=== PATIENT | female | born 1955 | race Caucasian/White ===

== ENCOUNTER 2017-07-08 19:06 | Inpatient (IN) | payer BC, OTHER, SELFPAY ==
[2017-07-08] MEDS ORDERED: hydrALAZINE 20 MG/ML VIAL SLOW IVP PRN (19:52)
[2017-07-08] MEDS ORDERED: Ondansetron HCl/PF 4 MG/2 ML Vial IVP PRN (19:52)
[2017-07-08] MEDS ORDERED: Ondansetron ODT 4 MG TAB PO PRN (19:52)
[2017-07-08] MEDS ORDERED: Dextrose 50% Abboject 50 ML SYRINGE SLOW IVP PRN (19:52)
[2017-07-08] MEDS ORDERED: Dextrose 5% in Water 1,000 ML IV PRN (19:52)
[2017-07-08] MEDS: Sodium Chloride 0.9% 1,000 ML IV SCH (20:20)
[2017-07-08] MEDS: Morphine 2 MG/ML SYRINGE SLOW IVP PRN (20:20)
[2017-07-08] MEDS: Acetaminophen 500 MG TAB PO SCH (23:40)
[2017-07-09 00:43] VITALS: BMI 29.6
--- NOTE | 2017-07-09 00:57 | CON ---
DATE OF CONSULTATION: 07/08/2017 CHIEF COMPLAINT: Right hip pain. HISTORY OF PRESENT ILLNESS: Ms. Brito is a 61-year-old female who was at work today when she fell fr om a stool. She landed on a concrete floor. She had immediate pain in the hip. She was unable to a mbulate. She was taken to the emergency department in [place] where her right femoral neck fracture was identified. She has been transferred from there for further treatment. Orthopedics was consulte d. The patient has been admitted to the hospital under the general surgery Trauma service. She is c urrently resting comfortably. No other complaints or problems. PAST MEDICAL HISTORY: Diabetes and hyperthyroidism. PAST SURGICAL HISTORY: Includes multiple right wrist surgeries from initial open reduction internal fixation and then subsequent infection. She has also had a hysterectomy, tonsillectomy, , t scabbler finger release, left rotator cuff surgery and previous right knee arthroscopic surgery. SOCIAL HISTORY: The patient denies tobacco, alcohol, or drug use. ALLERGIES: To SULFA. REVIEW OF SYSTEMS: Positive for right hip pain, otherwise negative ten point review of systems. PHYSICAL EXAMINATION: VITAL SIGNS: Stable. She is afebrile. GENERAL: She is alert, lying supine in no apparent distress. HEENT: Normocephalic, atraumatic. RESPIRATORY: Breathing comfortably. ABDOMEN: Soft, nontender, nondistended. MUSCULOSKELETAL: The right hip has pain with motion. There is no ecchymosis or laceration. No skin irritation or rash is present. She is neurovascularly intact in the foot and ankle. She has a palp able dorsalis pedis pulse. IMAGES: X-rays of the pelvis and right hip are reviewed. These demonstrate a displaced and rotated subcapital femoral neck fracture. IMPRESSION: The patient has an acute subcapital femoral neck fracture. PLAN: At this point, I had a long discussion with the patient. She is aware of her injury and quest ions have been answered. We are planning to proceed with total hip arthroplasty tomorrow. I have ch osen total hip arthroplasty given that she is young and does have a displaced fracture. I have revie wed alternatives, which would include percutaneous screw fixation; however, I think this would fail g ivcira her displacement as well as hemiarthroplasty, which would likely lead to acetabular osteoarthrit is in the next 5-10 years, which would be acceptable given the patient's young age. She is aware of the risk with total hip arthroplasty which include instability, infection, wound complication and oth ers. She will be n.p.o. at midnight. She will have appropriate antibiotic prophylaxis with vancomyc in given her history of MRSA. I will also order Bactroban for her nasal treatment. She will have ap propriate DVT prophylaxis.
[2017-07-09] MEDS: Levothyroxine Sodium 125 MCG TAB PO SCH (05:20)
[2017-07-09] MEDS: Acetaminophen 500 MG TAB PO SCH ×4 (05:20→23:07)
[2017-07-09] MEDS: Morphine 2 MG/ML SYRINGE SLOW IVP PRN ×3 (05:34→23:06)
[2017-07-09] MEDS: Sodium Chloride 0.9% 1,000 ML IV SCH (05:37)
--- NOTE | 2017-07-09 06:08 | HP ---
HPI: Ms Brito is a 61 yo female who presented to to [facility] as a transfer from [facility]. Pt states she fell while attempting to stand on a stoop approximately 2-3 ft in height. She had immediate onset RLE pain associated with inability to ambulate. She was evaluated at an outside facility and found to have a R fem neck fx. Orthopedic surgery was notified and pt was transferred to our facility for further care. Upon my evaluation pt has a cc of RLE pain. She denies head trauma or LOC. ALLERGIES: SULFA MEDICATIONS, IBUPROFEN, THIO . and SIMBRINZA EYEDROPS. HOME MEDICATIONS: Patient takes multivitamins, Lumigan eyedrops, timolol eyedrops, cetirizine 10 mg p.o. nightly, Aleve 2 tabs p.o. b.i.d., Prozac 20 mg p.o. daily, Lyrica 50 mg p.o. daily, trazodone 150 mg p.o. at bedtime, Ambien 10 mg p.o. at bedtime p.r.n., Synthroid 250 mcg p.o. daily, gabapentin 300 mg p.o. t.i.d., VESIcare 10 mg p.o. daily, potassium 10 mEq p.o. daily. PAST MEDICAL HISTORY: Significant for right eye glaucoma, type 1 diabetes with an insulin pump, hypothyroidism, depression and hypokalemia. PAST SURGICAL HISTORY: Patient has a history of , hysterectomy, left shoulder surgery x2, right wrist surgery x6, right knee surgery, bilateral trigger finger surgery, tonsillectomy. 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 Denies alcohol, tobacco or illicit drug use. FAMILY HISTORY: Significant for mother with CHF and arrhythmia. Father with Alzheimer's and a brother with pulmonary hemochromatosis requiring lung transplant. REVIEW OF SYSTEMS: Negative except as indicated in the HPI. PHYSICAL EXAMINATION: VITAL SIGNS: Reviewed. GENERAL: Well-developed, well-nourished female in no acute distress, resting in bed. HEAD: Normocephalic, atraumatic. EYES: Pupils are PERRL. Extraocular movements are intact. NECK: Supple. Trachea is midline. CHEST: Atraumatic. LUNGS: Clear to auscultation bilaterally. CARDIOVASCULAR: Regular rate and rhythm. ABDOMEN: Soft, nontender, nondistended. Bowel sounds are positive. MUSCULOSKELETAL: Bilateral upper extremities within normal limits. Right lower extremity range of motion limited secondary to pain. She is neurovascularly intact distal to the site of her injury. Left lower extremity, within normal limits. NEUROLOGIC: GCS of 15. No focal deficit noted. LABORATORY DATA: WBC 9.5, hemoglobin 13.5, hematocrit 40.1, platelet count 178. Sodium 136, potassium 4.2, chloride 100, carbon dioxide 29, BUN 21, creatinine 1.13, glucose 176, troponin 0.02. RADIOLOGIC FINDINGS: Chest x-ray read as no acute cardiopulmonary process, right pelvic x-ray was significant for right femoral neck fracture. Right hip x -ray was significant for right femoral neck fracture. ASSESSMENT: 1. Status post mechanical fall. 2. Right hip fracture. 3. Acute traumatic pain. 4. Type 1 diabetes with insulin pump. 5. Hypothyroidism. 6. History of depression. 7. History of hypokalemia. 8. History of right eye glaucoma. PLAN: Admit to Trauma Services. Per Orthopedic Surgery, they plan for likely operative intervention in a.m. Patient should be n.p.o. after midnight. Perioperative pain management. Resume home meds/reconcile home medication list. Postoperative PT, OT. Gastritis and DVT prophylaxis as appropriate. Patient may use insulin pump. Plans for admission were discussed with the patient and family at bedside. All questions answered at time of this dictation. EULALIA
[2017-07-09 07:37] LABS: #Eosinphils 0.5 thou/uL (0.0-0.7); #Monocytes 0.5 thou/uL (0.11-0.59); #Neutrophils 8.3 thou/uL (1.40-6.50); %Basophils 0.2 % (0.0-1.0); %Eosinophils 5.2 % (0.0-10.0); %Lymphocytes 9.9 % (21.0-51.0); %Monocytes 4.6 % (0.0-10.0); %Neutrophils 80.1 % (42.0-75.0); Hemoglobin 12.9 g/dL (12.0-16.0); Mean Corpuscular HGB CONC 32.6 g/dL (32.0-36.0); Mean Corpuscular Hemoglobin 29.4 pg (27.0-31.0); Mean Corpuscular Volume 90.1 fl (81.0-99.0); Mean Platelet Volume 7.2 fL (7.4-10.4); Platelet Count 208 thou/uL (130-400); RBC Distribution Width 11.6 % (11.5-14.5); Red Blood Cell (RBC) Count 4.37 mill/uL (4.20-5.40); White Blood Cell (WBC) Count 10.4 thou/uL (4.8-10.8)
[2017-07-09 07:58] LABS: Anion Gap 11 mmol/L (10-20); BUN (Urea Nitrogen) 17 mg/dL (9.8-20.1); Calc. Creatinine Clearance 78 mL/min (70-130); Calcium 8.9 mg/dL (7.8-10.44); Carbon Dioxide 26 mmol/L (22-29); Chloride 104 mmol/L (98-107); Estimated GFR-MDRD 57; Glucose 86 mg/dL (70-105); Magnesium 1.9 mg/dL (1.6-2.6); Phosphorus 3.3 mg/dL (2.3-4.7); Potassium 4.2 mmol/L (3.5-5.1); Sodium 137 mmol/L (136-145)
[2017-07-09] MEDS: Ketorolac Tromethamine 30 MG/ML VIAL IVP SCH ×3 (08:54→19:59)
[2017-07-09] MEDS: Mupirocin 2% Ointment 22 GM Tube TOP SCH ×2 (08:55→20:06)
[2017-07-09] MEDS: Timolol 0.5% Ophth Soln 5 ml Bottle R EYE SCH (10:27)
[2017-07-09] MEDS: Gabapentin 300 MG CAP PO SCH ×3 (10:32→20:00)
[2017-07-09] MEDS: FLUoxetine HCl 20 MG CAP PO SCH (10:32)
[2017-07-09] MEDS: Potassium Chloride 10 MEQ TAB PO SCH (10:32)
[2017-07-09] MEDS: Pregabalin 50 MG CAP PO SCH (10:32)
[2017-07-09] MEDS: Vit A,C & E/Lutein/Minerals Tablet PO SCH ×2 (10:33→20:20)
[2017-07-09] MEDS ORDERED: Vancomycin HCl 1 GM in Premix Bag 1 BAG IVPB ONE (12:00)
[2017-07-09] MEDS ORDERED: Fentanyl 100 MCG/2 ML VIAL ONE ×3 (12:03→15:22)
[2017-07-09] MEDS ORDERED: Ondansetron HCl/PF 4 MG/2 ML Vial IVP PRN (14:03)
[2017-07-09] MEDS ORDERED: Promethazine HCl 25 MG/ML VIAL IM PRN (14:03)
[2017-07-09] MEDS ORDERED: Promethazine HCl 25 MG/ML VIAL SLOW IVP PRN (14:03)
--- NOTE | 2017-07-09 15:29 | RAD ---
HIP ONE VIEW: History: Arthroplasty. Comparison: Pelvic radiograph, same day. FINDINGS: Satisfactory appearance of the right hip arthroplasty. IMPRESSION: Satisfactory appearance of the right hip arthroplasty. POS: [facility]
--- NOTE | 2017-07-09 15:30 | RAD ---
AP PELVIS: History: Arthroplasty. Comparison: None. FINDINGS: Satisfactory appearance of a right hip arthroplasty. There is post-operative gas and edema. No hardwa re complication. IMPRESSION: Satisfactory appearance of right hip arthroplasty. POS: [facility]
--- NOTE | 2017-07-09 15:32 | OP ---
DATE OF PROCEDURE: 07/09/2017 OPERATION: Right total hip arthroplasty. PREOPERATIVE DIAGNOSIS: Right femoral neck fracture. POSTOPERATIVE DIAGNOSIS: Right femoral neck fracture. COMPLICATIONS: None. ESTIMATED BLOOD LOSS: 150 mL. SURGEON: Ernie Hansen M.D. TEXTILE MACHINERY SALES REPRESENTATIVE: Nawaf Maya PA-C. IMPLANTS: 1. DePuy [place] stem size 5. 2. 50 mm Roby acetabulum cup. 3. A +5 x 32 mm femoral head. INDICATIONS: Ms. Brito is a 61-year-old female who has fallen. She sustained a fracture of the femo ral neck of the right hip. This was displaced and high at the subcapital region. She was indicated for total hip arthroplasty to restore ambulation and prevent complications of prolonged bed rest. I did not feel she could do well with percutaneous screws given her displacement and she would likely h ave complications with a hemiarthroplasty given her young age. Risks have been reviewed. Her primar y risk is with infection given her history of multiple MRSA infections. DESCRIPTION OF PROCEDURE: Ms. Barnhart was identified in the preoperative holding area. Her correct extremity was marked. She was carried to the operating room. She was positioned supine. General an esthesia was induced. A multidisciplinary timeout was performed. She was converted to the decubitus position. We prepped and draped the right lower extremity and began the procedure. We performed a posterior ap proach to the hip using the Rossana Langenbeck approach. We dissected down through the subcutaneous t issues to the fascia which was incised. We then exposed the underlying short external rotators of th e hip. We then performed a capsulotomy. At this point, the fractured femoral neck was identified. We performed a new osteotomy of the femoral neck. We then removed the femoral head. We then cleared the acetabulum and placed retractors appropriately. At this point, we reamed the acetabulum up from a 44 mm to a 49 mm reamer. We then impacted a 50 mm acetabulum cup. This gave a good fit. We placed our liner appropriately after clearing soft tissues . A screw was placed in the acetabular cup prior to liner placement. At this point, we moved to the femur. We prepared the proximal femur with an appropriate reamer foll owed by christ up to a size 5. We trialed off our size 5 broach and a +5 [address] was appropriate for [address] ability throughout full range of motion. At this point, we thoroughly irrigated once again. We then placed our final femoral stem and head and once again reduced the hip. We closed the capsule and pi riformis with a #5 Ethibond suture through drill holes in the trochanter. We then closed the deep fa scia with #1 Vicryl suture followed by 2-0 Vicryl suture and merlene for the skin. A sterile dressin g was applied. At this point, the patient was taken to the recovery room in good condition without c omplication.
[2017-07-09] MEDS ORDERED: Ketorolac Tromethamine 15 MG/ML VIAL IVP SCH (20:00)
[2017-07-09] MEDS: Vancomycin HCl 1 GM in Premix Bag 1 BAG IVPB SCH (20:20)
[2017-07-09] MEDS: Latanoprost 0.005% Ophth Soln 2.5 ml Bottle EA EYE SCH (20:49)
[2017-07-09] MEDS ORDERED: Non-Formulary Item 1 EACH (Bimatoprost [Lumigan 0.01% Ophth Soln] 1 DROP) EA EYE SCH (21:00)
--- NOTE | 2017-07-09 23:01 | PRG ---
DATE OF SERVICE: 07/09/2017 SUBJECTIVE: Ms. Colleen Brito is 61-year-old female postop day 0 status post hip fracture repair. Pos toperatively, the patient is mildly drowsy, but pain is controlled and she localizes no other complai nts. OBJECTIVE: VITAL SIGNS: Reviewed and stable. GENERAL: Resting in bed in no acute distress, appears comfortable, breathing is nonlabored. ASSESSMENT: As documented in daily progress note. PLAN: Continue care as ordered. The a.m. labs. Continue to monitor. Gentle intravenous hydration. Follow urine output.
[2017-07-09] MEDS: cycloSPORINE 0.05% Ophthalmic Droperette EA EYE SCH (23:07)
[2017-07-10] MEDS: Ketorolac Tromethamine 30 MG/ML VIAL IVP SCH ×2 (02:29→08:40)
[2017-07-10] MEDS: Acetaminophen 500 MG TAB PO SCH ×3 (05:17→20:12)
[2017-07-10] MEDS: Levothyroxine Sodium 125 MCG TAB PO SCH (05:17)
[2017-07-10] MEDS: Sodium Chloride 0.9% 1,000 ML IV SCH (05:19)
[2017-07-10] MEDS ORDERED: Sodium Chloride 0.9% 500 ML IV SCH (07:00)
[2017-07-10 07:37] LABS: #Eosinphils 0.6 thou/uL (0.0-0.7); #Lymphocytes 0.9 thou/uL (1.20-3.40); #Monocytes 0.6 thou/uL (0.11-0.59); #Neutrophils 9.7 thou/uL (1.40-6.50); %Basophils 0.4 % (0.0-1.0); %Eosinophils 5.5 % (0.0-10.0); %Lymphocytes 7.2 % (21.0-51.0); %Monocytes 4.8 % (0.0-10.0); %Neutrophils 82.2 % (42.0-75.0); Hemoglobin 11.9 g/dL (12.0-16.0); Mean Corpuscular HGB CONC 32.9 g/dL (32.0-36.0); Mean Corpuscular Hemoglobin 30.1 pg (27.0-31.0); Mean Corpuscular Volume 91.7 fl (81.0-99.0); Mean Platelet Volume 7.6 fL (7.4-10.4); Platelet Count 169 thou/uL (130-400); RBC Distribution Width 11.4 % (11.5-14.5); Red Blood Cell (RBC) Count 3.94 mill/uL (4.20-5.40); White Blood Cell (WBC) Count 11.8 thou/uL (4.8-10.8)
[2017-07-10 07:56] LABS: Anion Gap 12 mmol/L (10-20); BUN (Urea Nitrogen) 16 mg/dL (9.8-20.1); Calc. Creatinine Clearance 71 mL/min (70-130); Calcium 8.5 mg/dL (7.8-10.44); Carbon Dioxide 23 mmol/L (22-29); Chloride 103 mmol/L (98-107); Estimated GFR-MDRD 51; Glucose 135 mg/dL (70-105); Magnesium 1.8 mg/dL (1.6-2.6); Phosphorus 2.8 mg/dL (2.3-4.7); Potassium 4.5 mmol/L (3.5-5.1); Sodium 133 mmol/L (136-145)
--- NOTE | 2017-07-10 08:13 | CON ---
DATE OF CONSULTATION: 07/10/2017 HISTORY OF PRESENT ILLNESS: The patient is a 61-year-old white female well known to me. She has kno wn history of type 1 insulin-dependent diabetes mellitus, currently maintained on insulin pump. She sustained a fall and fracture of her right hip. She has undergone right hip replacement surgery due to her fracture. She has a history of type 1 diabetes mellitus, currently managed with an insulin pu mp. Her diabetic control has been very good over the last few years. She has a history of chronic i nsomnia as well as stress urinary incontinence. She is currently maintained on Lyrica 50 mg p.o. daily, trazodone 50 mg at bedtime, Ambien 10 mg at b edtime. She has a history of hypothyroidism for which she takes Synthroid. She also takes VESIcare 10 mg daily. PAST MEDICAL HISTORY: Glaucoma, type 1 diabetes, hypothyroidism. PAST SURGICAL HISTORY: Positive for , hysterectomy, left shoulder surgery, wrist surgery, k nee surgery. SOCIAL/PERSONAL HISTORY: INCOMPLETE DICTATION
[2017-07-10] MEDS: Vancomycin HCl 1 GM in Premix Bag 1 BAG IVPB SCH (08:38)
[2017-07-10] MEDS: FLUoxetine HCl 20 MG CAP PO SCH (08:39)
[2017-07-10] MEDS: cycloSPORINE 0.05% Ophthalmic Droperette EA EYE SCH ×2 (08:39→20:22)
[2017-07-10] MEDS: Vit A,C & E/Lutein/Minerals Tablet PO SCH ×2 (08:39→20:19)
[2017-07-10] MEDS: Pregabalin 50 MG CAP PO SCH (08:39)
[2017-07-10] MEDS: Gabapentin 300 MG CAP PO SCH ×3 (08:39→20:18)
[2017-07-10] MEDS: Timolol 0.5% Ophth Soln 5 ml Bottle R EYE SCH (08:39)
[2017-07-10] MEDS: Potassium Chloride 10 MEQ TAB PO SCH (08:40)
[2017-07-10] MEDS ORDERED: Cetirizine HCl 10 MG TAB PO SCH (09:00)
[2017-07-10] MEDS ORDERED: traMADol HCl 50 MG TAB PO PRN (09:50)
[2017-07-10] MEDS: Mupirocin 2% Ointment 22 GM Tube TOP SCH (09:52)
[2017-07-10] MEDS: TROSPIUM 20 MG TABLET PO SCH ×2 (09:54→21:25)
[2017-07-10] MEDS ORDERED: traMADol HCl 50 MG TAB PO SCH (12:00)
--- NOTE | 2017-07-10 12:19 | PRG ---
DATE OF SERVICE: 07/10/2017 SUBJECTIVE: The patient is status post ground level fall in which she sustained a right hip fracture . She is hospital day #2, postop day #1. She underwent open reduction and internal fixation seen ye sterday by Orthopedic Service. She tolerated this procedure well this morning. She is awake, very a lert and oriented. Her pain is controlled. She is tolerating a diet and she is anxiously awaiting t o start her therapy. 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 PHYSICAL EXAMINATION: VITAL SIGNS: Temperature is 97.9, heart rate 109, blood pressure 126/72, respirations 14, oxygen sat uration 93% on room air. GENERAL: Patient is resting comfortably in bed. She is alert and oriented x3. Merline coma scale i s 15. HEENT: Unremarkable. LUNGS: Clear to auscultation bilaterally. HEART: Regular rate and rhythm. ABDOMEN: Soft, flat, nontender with active bowel sounds. EXTREMITIES: Neurovascularly intact x4. Postoperative dressing is clean, dry, and intact. LABORATORY DATA AND IMAGING DATA: White blood cell count 11.8, hemoglobin 11.9, hematocrit 36.1, junie telets 169. Sodium 133, potassium 4.5, chloride 103, CO2 23, BUN 16, creatinine 1.09, glucose 135, m agnesium 1.8, phosphorus 2.8. There are no radiographs to review this morning. ASSESSMENT AND PLAN: 1. Status post ground level fall. 2. Right hip fracture, status post open reduction and internal fixation of same. PLAN: Will be to continue supportive care, pain management, pulmonary toilet, gastritis prophylaxis and begin physical and occupational therapy. The patient has also had a rehabilitation consultation placed. The evaluation examination was done with Dr. Reeves during rounds this morning.
[2017-07-10] MEDS ORDERED: HYDROcodone/Acetaminophen 5/325 mg Tablet PO PRN (13:14)
[2017-07-10] MEDS: traMADol HCl 50 MG TAB PO SCH ×2 (13:29→20:18)
[2017-07-10] MEDS: Enoxaparin Sodium 40 MG/0.4 ML SYRINGE SC SCH (20:12)
[2017-07-10] MEDS: Latanoprost 0.005% Ophth Soln 2.5 ml Bottle EA EYE SCH (20:19)
--- NOTE | 2017-07-10 21:46 | PRG ---
DATE OF SERVICE: 07/10/2017 SUBJECTIVE: Colleen Brito is a 61-year-old female, postop day #1, status post hip fracture repair afte r a mechanical fall. Patient vocalized no complaints this evening. Pain is controlled. She worked with physical therapy earlier today. OBJECTIVE: VITAL SIGNS: Reviewed and stable. GENERAL: The patient is resting in bed, in no acute distress. LUNGS: Breathing is nonlabored. ASSESSMENT AND PLAN: As documented in daily progress note. Continue care as ordered. Continue to m onitor.
[2017-07-11] MEDS: Acetaminophen 500 MG TAB PO SCH ×5 (00:21→22:02)
[2017-07-11] MEDS: traMADol HCl 50 MG TAB PO SCH ×2 (02:27→17:07)
[2017-07-11] MEDS: Levothyroxine Sodium 125 MCG TAB PO SCH (05:36)
[2017-07-11] MEDS: Pregabalin 50 MG CAP PO SCH (07:35)
[2017-07-11] MEDS: Docusate 100 MG CAP PO SCH (07:35)
[2017-07-11] MEDS: Senokot 8.6 MG TAB PO SCH ×2 (07:35→17:09)
[2017-07-11] MEDS: Gabapentin 300 MG CAP PO SCH ×3 (07:36→22:00)
[2017-07-11] MEDS: Vit A,C & E/Lutein/Minerals Tablet PO SCH ×2 (07:36→22:02)
[2017-07-11] MEDS: Loratadine 10 MG TAB PO SCH (07:36)
[2017-07-11] MEDS: FLUoxetine HCl 20 MG CAP PO SCH (07:36)
[2017-07-11] MEDS: Polyethylene Glycol 3350 17 GM Packet PO SCH ×2 (07:37→17:08)
[2017-07-11] MEDS: Potassium Chloride 10 MEQ TAB PO SCH (07:37)
[2017-07-11] MEDS: cycloSPORINE 0.05% Ophthalmic Droperette EA EYE SCH ×3 (07:38→22:01)
[2017-07-11] MEDS: Timolol 0.5% Ophth Soln 5 ml Bottle R EYE SCH (07:38)
[2017-07-11] MEDS: Senokot S 8.6-50 MG TAB PO SCH ×3 (07:40→22:01)
[2017-07-11] MEDS ORDERED: Zolpidem Tartrate 5 MG TAB PO PRN (08:05)
[2017-07-11] MEDS: TROSPIUM 20 MG TABLET PO SCH ×2 (09:00→22:02)
--- NOTE | 2017-07-11 11:15 | PRG ---
DATE OF SERVICE: 07/11/2017 SUBJECTIVE: Ms. Brito is doing well. She has no medical complaints. She has been up and walking. PHYSICAL EXAMINATION: VITAL SIGNS: Blood pressure 150/80, temperature 98.9, O2 sats 95. Her blood sugars were out of control. She is on insulin pump. IMPRESSION: 1. Status post right hip fracture with right hip replacement. 2. Type 1 diabetes mellitus. PLAN: When the patient is stable, my opinion to be transferred to any rehabilitation center. She is to maintain her insulin pump. She does very well maintaining this on her own. All of her home medi cines remained the same.
[2017-07-11] MEDS: Ascorbic Acid 500 mg Chewable Tablet PO SCH (17:07)
[2017-07-11] MEDS: Naproxen 500 MG TAB PO SCH ×2 (17:08→22:01)
[2017-07-11] MEDS: HYDROcodone/Acetaminophen 7.5/325 mg Tablet PO PRN (20:04)
[2017-07-11] MEDS ORDERED: Cetirizine HCl 10 MG TAB PO SCH (21:00)
--- NOTE | 2017-07-11 21:23 | PRG ---
DATE OF SERVICE: 07/11/2017 SUBJECTIVE: The patient is in hospital day #3 postop day #2 from a ground level fall in which she garcia stained a right hip fracture and has undergone open reduction internal fixation of the same. The pat ient overnight has had no issues. She states that her pain is still not adequately controlled when w orking with physical and occupational therapy, so we will make adjustments with that again today. Ot herwise, the patient is tolerating a diet. PHYSICAL EXAMINATION: VITAL SIGNS: Temperature is 98.2, heart rate 97, blood pressure 165/77, respirations 16, oxygen satu ration is 98% on room air. HEENT: Unremarkable. LUNGS: Clear to auscultation bilaterally. HEART: Regular rate and rhythm. ABDOMEN: Soft, flat, nontender with active bowel sounds. EXTREMITIES: Neurovascularly intact x4. Postop dressing is clean, dry, and intact. LABORATORY DATA: Radiographs reviewed this morning. ASSESSMENT: 1. Status post ground level fall. 2. Status post right hip fracture that has undergone a right total hip arthroplasty. PLAN: We will continue physical and occupational therapy. We were advised by the case management te am that this is a worker's compensation case, so we expect the patient to be here for a few more days , specifically over the weekend. We will continue her to pain control, her diet and await bowel func tion returns. The evaluation examination was done with Dr. eReves during rounds this morning.
[2017-07-11] MEDS: Latanoprost 0.005% Ophth Soln 2.5 ml Bottle EA EYE SCH (22:00)
[2017-07-11] MEDS: Enoxaparin Sodium 40 MG/0.4 ML SYRINGE SC SCH (22:00)
[2017-07-11] MEDS: traZODone HCl 150 MG TAB PO SCH (22:02)
--- NOTE | 2017-07-12 02:04 | PRG ---
DATE OF SERVICE: 07/11/2017. SUBJECTIVE: Colleen Brito is a 61-year-old female status post hip fracture repair. The patient vocali zed no complaint this evening. Pain has been controlled. She worked with physical therapy earlier t ronni. She is currently awaiting inpatient rehabilitation pending insurance. OBJECTIVE: GENERAL: The patient is resting in bed in no acute distress. VITAL SIGNS: Reviewed and stable. LUNGS: Breathing is nonlabored. EXTREMITIES: Moves all extremities x4. ASSESSMENT AND PLAN: As documented in daily progress note. Continue care as ordered. Continue to m onitor.
[2017-07-12] MEDS: traMADol HCl 50 MG TAB PO SCH ×5 (02:06→20:15)
[2017-07-12] MEDS: Acetaminophen 500 MG TAB PO SCH ×6 (02:07→21:22)
[2017-07-12] MEDS: Levothyroxine Sodium 125 MCG TAB PO SCH (06:13)
[2017-07-12] MEDS: FLUoxetine HCl 20 MG CAP PO SCH (09:19)
[2017-07-12] MEDS: Ascorbic Acid 500 mg Chewable Tablet PO SCH (09:19)
[2017-07-12] MEDS: Docusate 100 MG CAP PO SCH (09:19)
[2017-07-12] MEDS: Pregabalin 50 MG CAP PO SCH (09:20)
[2017-07-12] MEDS: Vit A,C & E/Lutein/Minerals Tablet PO SCH ×2 (09:20→20:29)
[2017-07-12] MEDS: Loratadine 10 MG TAB PO SCH (09:21)
[2017-07-12] MEDS: Naproxen 500 MG TAB PO SCH ×2 (09:21→20:28)
[2017-07-12] MEDS: Potassium Chloride 10 MEQ TAB PO SCH (09:22)
[2017-07-12] MEDS: cycloSPORINE 0.05% Ophthalmic Droperette EA EYE SCH ×2 (09:22→20:31)
[2017-07-12] MEDS: Gabapentin 300 MG CAP PO SCH ×3 (09:22→20:28)
[2017-07-12] MEDS: Polyethylene Glycol 3350 17 GM Packet PO SCH (09:22)
[2017-07-12] MEDS: Timolol 0.5% Ophth Soln 5 ml Bottle R EYE SCH (09:23)
[2017-07-12] MEDS: Senokot 8.6 MG TAB PO SCH (09:24)
[2017-07-12] MEDS: Senokot S 8.6-50 MG TAB PO SCH ×2 (09:24→20:27)
--- NOTE | 2017-07-12 11:35 | PRG ---
DATE OF SERVICE: 07/12/2017 SUBJECTIVE: The patient is doing well. She is ambulating with therapy. She is postop day #3 status post right hip arthroplasty by Dr. Hansen. 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 She fell from a step ladder onto her right hip and sustained a fracture. She is anxious to get back to work. She is anxious to get her therapy. OBJECTIVE: VITAL SIGNS: Temperature 98.0, pulse 96, respirations 16, blood pressure 124/72, pulse ox 98. HEART: Regular rate and rhythm. LUNGS: Clear. ABDOMEN: Soft. EXTREMITIES: With no edema. LABORATORY DATA: Blood sugar this morning is 149. ASSESSMENT: 1. Postop day #3, status post right hip arthroplasty. 2. Type 1 diabetes. PLAN: 1. Continue with physical therapy. 2. Continue with postop care. 3. Planning to go [facility] for further therapy. 4. The patient will continue to follow her sugars and control via her insulin pump.
[2017-07-12] MEDS: HYDROcodone/Acetaminophen 7.5/325 mg Tablet PO PRN (15:05)
[2017-07-12] MEDS: TROSPIUM 20 MG TABLET PO SCH ×2 (15:11→20:30)
--- NOTE | 2017-07-12 18:58 | PRG ---
DATE OF SERVICE: 07/12/2017 SUBJECTIVE: The patient is hospital day #4, postop day #3 from a ground level fall when she sustaine d a right hip fracture. The patient has undergone open reduction internal fixation of the same. She has had no issues overnight. She is tolerating a diet and her pain is controlled. The patient is w orking with physical and occupational therapy and is awaiting placement. The patient is a worker's c ompensation patient, so this is not an uncommon delay, awaiting further decision. PHYSICAL EXAMINATION: VITAL SIGNS: Temperature is 98.0, heart rate 96, blood pressure 124/72, respirations 16, oxygen satu ration 98% on room air. HEENT: Unremarkable. LUNGS: Clear to auscultation with good inspiratory and expiratory effort. HEART: Regular rate and rhythm. ABDOMEN: Soft, flat, nontender with active bowel sounds. EXTREMITIES: Neurovascularly intact x4. NEUROLOGIC: The patient is awake, alert and oriented x3. Merline coma scale is 15. ASSESSMENT AND PLAN: 1. Status post ground level fall. 2. Status post right hip fracture which has undergone right total hip arthroplasty. Plan will be to continue physical and occupational therapy and await placement decision. This evalua tion examination was done with Dr. Reeves this morning during rounds.
[2017-07-12] MEDS: traZODone HCl 150 MG TAB PO SCH (20:29)
[2017-07-12] MEDS: Enoxaparin Sodium 40 MG/0.4 ML SYRINGE SC SCH (20:30)
[2017-07-12] MEDS: Latanoprost 0.005% Ophth Soln 2.5 ml Bottle EA EYE SCH (20:32)
--- NOTE | 2017-07-12 23:42 | PRG ---
DATE OF SERVICE: 07/12/2017 SUBJECTIVE: Colleen Brito is a 61-year-old female status post hip fracture repair. She worked with ph ysical therapy earlier today. The patient reports pain is controlled. She vocalized no complaints t his evening. OBJECTIVE: VITAL SIGNS: Reviewed and stable. The patient is afebrile. GENERAL: Resting in bed in no acute distress. Breathing is nonlabored. ASSESSMENT AND PLAN: As documented in the daily progress note. Continue care as ordered. Continue to monitor.
[2017-07-13] MEDS: HYDROcodone/Acetaminophen 7.5/325 mg Tablet PO PRN ×2 (01:03→20:57)
[2017-07-13] MEDS: Acetaminophen 500 MG TAB PO SCH ×6 (01:05→22:40)
[2017-07-13] MEDS: traMADol HCl 50 MG TAB PO SCH ×4 (01:05→20:05)
[2017-07-13] MEDS: Levothyroxine Sodium 125 MCG TAB PO SCH (06:36)
[2017-07-13] MEDS: Gabapentin 300 MG CAP PO SCH ×3 (08:52→20:59)
[2017-07-13] MEDS: Loratadine 10 MG TAB PO SCH (08:52)
[2017-07-13] MEDS: Vit A,C & E/Lutein/Minerals Tablet PO SCH ×2 (08:52→20:59)
[2017-07-13] MEDS: Ascorbic Acid 500 mg Chewable Tablet PO SCH (08:52)
[2017-07-13] MEDS: Pregabalin 50 MG CAP PO SCH (08:53)
[2017-07-13] MEDS: Naproxen 500 MG TAB PO SCH ×2 (08:54→22:32)
[2017-07-13] MEDS: FLUoxetine HCl 20 MG CAP PO SCH (08:54)
[2017-07-13] MEDS: Docusate 100 MG CAP PO SCH (08:54)
[2017-07-13] MEDS: Potassium Chloride 10 MEQ TAB PO SCH (08:54)
[2017-07-13] MEDS: Polyethylene Glycol 3350 17 GM Packet PO SCH (08:54)
[2017-07-13] MEDS: Senokot S 8.6-50 MG TAB PO SCH ×2 (08:55→22:33)
[2017-07-13] MEDS: Timolol 0.5% Ophth Soln 5 ml Bottle R EYE SCH (08:55)
[2017-07-13] MEDS: Senokot 8.6 MG TAB PO SCH (08:56)
[2017-07-13] MEDS: cycloSPORINE 0.05% Ophthalmic Droperette EA EYE SCH ×2 (10:16→21:01)
[2017-07-13] MEDS: TROSPIUM 20 MG TABLET PO SCH ×2 (10:16→20:59)
--- NOTE | 2017-07-13 11:09 | PRG ---
DATE OF SERVICE: 07/13/2017 SUBJECTIVE: The patient continues to do well. She is well motivated. She is ambulating with therap y. She is postop day #4. OBJECTIVE: VITAL SIGNS: Stable, afebrile, temperature 97.7, pulse 98, blood pressure 158/78, respiratory rate 2 0, pulse ox 97. HEART: Regular rate and rhythm. LUNGS: Clear. ABDOMEN: Soft. EXTREMITIES: With no edema. LABORATORY DATA: Blood sugar 175, 106, 71. ASSESSMENT: 1. Postop day #4, status post right hip arthroplasty by Dr. Hansen. 2. Type 1 diabetes. PLAN: 1. Continue with physical therapy. 2. Awaiting decision for rehab placement. 3. The patient continues to monitor her sugars and treat according to her insulin pump.
--- NOTE | 2017-07-13 17:42 | PRG ---
DATE OF SERVICE: 07/13/2017 SUBJECTIVE: The patient is hospital day #5, postop day #4 from a ground level fall in which she sust ained a right hip fracture. The patient has undergone open reduction internal fixation of the same. Last night, she had no issues. She has been progressing with physical and occupational therapy and she is currently awaiting placement. Her pain is controlled and she is tolerating a diet. PHYSICAL EXAMINATION: VITAL SIGNS: Temperature is 97.7, heart rate 98, blood pressure 145/73, respirations 20, oxygen sat 97% on room air. GENERAL: The patient is resting comfortably in bed. She is alert and oriented x3. Her Merline coma scale is 15. HEENT: Unremarkable. LUNGS: Clear to auscultation with good inspiratory and expiratory effort. HEART: Regular rate and rhythm. ABDOMEN: Soft, flat, nontender with active bowel sounds. EXTREMITIES: Neurovascularly intact x4. LABORATORY DATA: There were no labs or radiographs to be reviewed this morning. ASSESSMENT AND PLAN: 1. Status post ground level fall. 2. Status post right hip fracture, for which she has undergone right total hip arthroplasty. PLAN: Plan will be to continue physical and occupational therapy and await placement decision. Bryon smith, with this being a worker's compensation, this can be a somewhat long process. The evaluation and examination was done with Dr. Reeves this morning during rounds.
[2017-07-13] MEDS: traZODone HCl 150 MG TAB PO SCH (20:59)
[2017-07-13] MEDS: Enoxaparin Sodium 40 MG/0.4 ML SYRINGE SC SCH (21:00)
[2017-07-13] MEDS: Latanoprost 0.005% Ophth Soln 2.5 ml Bottle EA EYE SCH (21:02)
--- NOTE | 2017-07-13 23:22 | PRG ---
DATE OF SERVICE: 07/13/2017 SUBJECTIVE: This is a 61-year-old female status post hip fracture repair. She has been working with physical therapy. Pain has been controlled. She vocalized no complaints this evening. OBJECTIVE: VITAL SIGNS: Reviewed and stable. Resting in bed in no acute distress. RESPIRATORY: Breathing is nonlabored. ASSESSMENT AND PLAN: As documented in daily progress note. Continue care as ordered. Continue to m onitor.
[2017-07-14] MEDS: traMADol HCl 50 MG TAB PO SCH ×4 (03:10→22:03)
[2017-07-14] MEDS: Acetaminophen 500 MG TAB PO SCH ×6 (03:11→22:36)
[2017-07-14] MEDS: Levothyroxine Sodium 125 MCG TAB PO SCH (05:13)
[2017-07-14] MEDS: Ascorbic Acid 500 mg Chewable Tablet PO SCH (07:46)
[2017-07-14] MEDS: Docusate 100 MG CAP PO SCH (07:46)
[2017-07-14] MEDS: Potassium Chloride 10 MEQ TAB PO SCH (07:46)
[2017-07-14] MEDS: Naproxen 500 MG TAB PO SCH ×2 (07:46→22:02)
[2017-07-14] MEDS: FLUoxetine HCl 20 MG CAP PO SCH (07:47)
[2017-07-14] MEDS: Loratadine 10 MG TAB PO SCH (07:47)
[2017-07-14] MEDS: Polyethylene Glycol 3350 17 GM Packet PO SCH (07:47)
[2017-07-14] MEDS: Vit A,C & E/Lutein/Minerals Tablet PO SCH ×2 (07:47→22:01)
[2017-07-14] MEDS: Gabapentin 300 MG CAP PO SCH ×3 (07:47→22:01)
[2017-07-14] MEDS: cycloSPORINE 0.05% Ophthalmic Droperette EA EYE SCH ×2 (07:48→22:08)
[2017-07-14] MEDS: Timolol 0.5% Ophth Soln 5 ml Bottle R EYE SCH (07:48)
[2017-07-14] MEDS: Senokot S 8.6-50 MG TAB PO SCH ×2 (07:49→22:38)
[2017-07-14] MEDS: TROSPIUM 20 MG TABLET PO SCH ×2 (07:49→22:35)
[2017-07-14] MEDS: Senokot 8.6 MG TAB PO SCH (07:49)
[2017-07-14] MEDS: Pregabalin 50 MG CAP PO SCH (07:59)
[2017-07-14] MEDS: Acyclovir 400 mg Tablet PO SCH ×3 (11:40→22:09)
[2017-07-14 11:56] LABS: Bilirubin Negative (Negative); Blood, Urine Negative (Negative); Clarity CLOUDY (Clear); Glucose, Urine (Dipstick) Negative (Negative); Leukocyte Large (Negative); Nitrite Negative (Negative); Protein, Urine (Dipstick) Negative (Neg-Trace)
[2017-07-14 12:03] LABS: Bacteria/HPF 4+ HPF (None Seen); Hyaline Casts/LPF 0-3 HYALINE CAST LPF (0-3 Hyaline); Squamous Epithelial None Seen HPF (0-3)
--- NOTE | 2017-07-14 12:11 | PRG ---
DATE OF SERVICE: 07/14/2017 SUBJECTIVE: Colleen is postoperative day #3 from a right total hip arthroplasty secondary to traumatic femoral neck fracture. She is doing relatively well. Her hemoglobin and hematocrit has remained st able. She is clinically ambulating greater than 250 feet. OBJECTIVE: Incision is clean, no erythema. She is neurovascularly intact in the involved extremity. IMPRESSION: A 61-year-old female with diabetes type 2, postoperative day #3 right total hip arthropl asty secondary to traumatic femoral neck fracture. PLAN: Continue current management. She is concerned about discharge to home. We have just spoke wi th bilingual case manager as to whether or not she will qualifies for an inpatient stay to include either skill ed nursing or inpatient rehabilitation. We will follow up on this later date.
[2017-07-14 12:14] LABS: RBC/HPF None Seen HPF (0-3)
[2017-07-14] MEDS: HYDROcodone/Acetaminophen 7.5/325 mg Tablet PO PRN ×2 (13:33→22:37)
--- NOTE | 2017-07-14 17:28 | PRG ---
DATE OF SERVICE: 07/14/2017 SUBJECTIVE: The patient is hospital day #6, postop day #5 from a ground level fall in which she sust ained a right hip fracture. The patient has undergone open reduction and internal fixation of the sa me. She tolerated this procedure well and has been progressing significantly well with physical therapy resident apy. The patient is currently awaiting placement. This morning, we discussed possible discharge. T he patient states that she lives alone and would be unable to care for herself and home health, would be some assistance, but still would not solve the problem of the fact that she lives alone and they would only be there temporarily for a few days a week. So, we will discuss this with the case manage r and try to find her placement. Otherwise, the patient states she is tolerating a diet and her pain is controlled. PHYSICAL EXAMINATION: VITAL SIGNS: Temperature is 97.9, heart rate 97, blood pressure 164/79, respirations 16, oxygen satu ration is 97% on room air. HEENT: Unremarkable. LUNGS: Clear to auscultation bilaterally. HEART: Regular rate and rhythm. ABDOMEN: Soft, flat, and nontender with active bowel sounds. EXTREMITIES: Neurovascularly intact x4. LABORATORY DATA: There were no radiographs or laboratories to review this morning. ASSESSMENT AND PLAN: 1. Status post ground level fall. 2. Status post right hip fracture for which she has undergone a right hip total arthroplasty. Plan will be to continue physical and occupational therapy and await placement decision.
--- NOTE | 2017-07-14 21:01 | PRG ---
DATE OF SERVICE: 07/14/2017 SUBJECTIVE: Colleen Brito is a 61-year-old female status post fall and hip fracture repair. Patient i s awaiting disposition per insurance authorization. Patient vocalized concern during my visit regard ing possible discharge home, [place] and patient states she feels she would be unable to care for herself in a safe manner. Otherwise, she vocalized no complaint. OBJECTIVE: Vital signs reviewed and stable. Patient has been mildly hypertensive throughout the day . Resting in bed, no acute distress, breathing is nonlabored. ASSESSMENT AND PLAN: As documented in daily progress note. Await eventual disposition. Continue ca re as ordered. Continue to monitor. Patient states that elevated blood pressure is likely secondary to her stress regarding disposition from the hospital. We will continue to monitor.
[2017-07-14] MEDS: Enoxaparin Sodium 40 MG/0.4 ML SYRINGE SC SCH (22:00)
[2017-07-14] MEDS: Latanoprost 0.005% Ophth Soln 2.5 ml Bottle EA EYE SCH (22:00)
[2017-07-14] MEDS: traZODone HCl 150 MG TAB PO SCH (22:01)
[2017-07-15] MEDS: Acyclovir 400 mg Tablet PO SCH ×4 (02:32→18:17)
[2017-07-15] MEDS: traMADol HCl 50 MG TAB PO SCH ×3 (02:33→14:23)
[2017-07-15] MEDS: Acetaminophen 500 MG TAB PO SCH ×4 (02:35→14:24)
[2017-07-15] MEDS: Levothyroxine Sodium 125 MCG TAB PO SCH (04:35)
[2017-07-15] MEDS: Ascorbic Acid 500 mg Chewable Tablet PO SCH (08:44)
[2017-07-15] MEDS: Senokot 8.6 MG TAB PO SCH (08:44)
[2017-07-15] MEDS: Naproxen 500 MG TAB PO SCH (08:45)
[2017-07-15] MEDS: Potassium Chloride 10 MEQ TAB PO SCH (08:45)
[2017-07-15] MEDS: Loratadine 10 MG TAB PO SCH (08:45)
[2017-07-15] MEDS: Docusate 100 MG CAP PO SCH (08:45)
[2017-07-15] MEDS: FLUoxetine HCl 20 MG CAP PO SCH (08:45)
[2017-07-15] MEDS: Gabapentin 300 MG CAP PO SCH ×2 (08:46→14:24)
[2017-07-15] MEDS: Senokot S 8.6-50 MG TAB PO SCH (08:46)
[2017-07-15] MEDS: Vit A,C & E/Lutein/Minerals Tablet PO SCH (08:46)
[2017-07-15] MEDS: Timolol 0.5% Ophth Soln 5 ml Bottle R EYE SCH (08:47)
[2017-07-15] MEDS: Pregabalin 50 MG CAP PO SCH (08:50)
[2017-07-15] MEDS: Polyethylene Glycol 3350 17 GM Packet PO SCH (08:50)
[2017-07-15] MEDS: TROSPIUM 20 MG TABLET PO SCH (12:17)
[2017-07-15] MEDS: cycloSPORINE 0.05% Ophthalmic Droperette EA EYE SCH (12:18)
[2017-07-15 17:54] VITALS: BP 153/80; TEMP 98.3
== END 2017-07-15 18:17 | DRG 470 ==
LOC: ERS 19:06 → SJJU 19:17
PROVIDERS: ADMIT Surgery; ATTEND Surgery
PROC: 0SR902Z Replacement of Right Hip Joint with Metal on Polyethylene Synthetic Substitute, Open Approach (ICD-10-PCS; principal; 2017-07-09)
DX: S72.011A Unspecified intracapsular fracture of right femur, initial encounter for closed fracture (principal); E03.9 Hypothyroidism, unspecified; H40.9 Unspecified glaucoma; W11.XXXA Fall on and from ladder, initial encounter; F32.9 Major depressive disorder, single episode, unspecified; E87.6 Hypokalemia; E10.9 Type 1 diabetes mellitus without complications; Z79.4 Long term (current) use of insulin; Z96.41 Presence of insulin pump (external) (internal); F51.04 Psychophysiologic insomnia; N39.3 Stress incontinence (female) (male); Z86.14 Personal history of Methicillin resistant Staphylococcus aureus infection
CPT/HCPCS: 36415; 36416; 72170; 80048; 81003; 81015; 83735; 84100; 85025; J1885; C1713; C1776; G0390; G8978-GP-CL; G8979-GP-CJ; G8987-GO-CK; G8988-GO-CI; J1650; J2270; J3010; J3370

== ENCOUNTER 2018-09-21 08:08 | Outpatient (CLI) | payer BC ==
--- NOTE | 2018-09-21 09:25 | BD ---
BONE DENSITOMETRY USING DEXA: Date: 09/21/18 HISTORY: Postmenopausal screening for osteoporosis. FINDINGS: Lumbar Spine: BMD (g/cm2) L1 0.926 T-Score: -0.6 Z-Score: 0.8 L2 1.041 T-Score: 0.1 Z-Score: 1.7 L3 0.779 T-Score: -2.8 Z-Score: -1.1 L4 0.769 T-Score: -2.7 Z-Score: -1.0 L1-L4 0.873 T-Score: -1.6 Z-Score: 0.0 Femoral Neck: 0.517 T-Score: -3.0 Z-Score: -1.6 Total Femur: 0.685 T-Score: -2.1 Z-Score: -1.0 IMPRESSION: Osteoporosis. POS: C
== END 2018-09-21 08:09 | disposition home or self-care (01) ==
LOC: BICMAMMO 08:08
PROVIDERS: ATTEND Family Medicine
DX: M81.0 Age-related osteoporosis without current pathological fracture (principal)
CPT/HCPCS: 77080

== ENCOUNTER 2019-11-15 21:01 | Emergency (ER) | payer BC ==
[2019-11-15] MEDS ORDERED: Fentanyl 100 MCG/2 ML VIAL ONE (22:00)
[2019-11-16] MEDS ORDERED: HYDROcodone/Acetaminophen 5/325 mg Tablet ONE (00:23)
--- NOTE | 2019-11-16 11:18 | RAD ---
LEFT HUMERUS 2 VIEWS: INDICATION: History of fall with left arm pain. COMPARISON: None. FINDINGS: There is postprocedural change of a left shoulder rotator cuff repair with 2 separate suture anchors involving the greater tuberosity. There is a transverse oriented lucency seen near the region of the surgical neck, some of which may be related to the patient's osteopenia. A nondisplaced 2-part prox imal humeral fracture cannot be entirely excluded. Recommend dedicated radiographs of the left shoul august. IMPRESSION: 1. Possible nondisplaced 2-part proximal humeral fracture involving the surgical neck of the left hu merus. Recommend dedicated radiographs of the left shoulder for further evaluation. 2. Postoperative change of the left shoulder rotator cuff. POS: BH
--- NOTE | 2019-11-16 12:13 | RAD ---
TWO VIEWS OF THE LEFT SHOULDER: INDICATION: Fall with left arm pain. FINDINGS: There is postsurgical change of a left rotator cuff repair. The left shoulder is held in rotation sl ightly limiting exam. No definite acute fracture is grossly evident. Visualized left lung is clear. There are suspected anterolateral left 3rd and 4th rib fractures. IMPRESSION: 1. No acute fracture or subluxation of the proximal left humerus within limitations of the exam. Th e patient held the left shoulder in internal rotation, slightly limiting the exam. 2. Suspected left anterolateral 3rd and 4th rib fractures. POS: BH
== END 2019-11-16 00:45 | disposition home or self-care (01) ==
LOC: ERS 21:01
DX: S22.42XA Multiple fractures of ribs, left side, initial encounter for closed fracture (principal); M79.622 Pain in left upper arm; E11.9 Type 2 diabetes mellitus without complications; E03.9 Hypothyroidism, unspecified; F32.9 Major depressive disorder, single episode, unspecified; H40.9 Unspecified glaucoma; Z79.4 Long term (current) use of insulin; Z79.899 Other long term (current) drug therapy; W19.XXXA Unspecified fall, initial encounter
CPT/HCPCS: 96374; J3010

== ENCOUNTER 2020-07-20 23:23 | Inpatient (IN) | payer BC ==
[2020-07-21 00:59] LABS: Phosphorus 7.7 mg/dL (2.3-4.7)
[2020-07-21 01:00] LABS: ALT (SGPT) 61 U/L (8-55); AST (SGOT) 63 U/L (5-34); Albumin 3.3 g/dL (3.4-4.8); Alkaline Phosphatase 156 U/L (40-110); Anion Gap 32 mmol/L (10-20); BUN (Urea Nitrogen) 36 mg/dL (9.8-20.1); Bilirubin, Total 1.6 mg/dL (0.2-1.2); CK (CPK) 170 U/L (29-168); Calc. Creatinine Clearance 0 mL/min (70-130); Calcium 8.6 mg/dL (7.8-10.44); Carbon Dioxide 9 mmol/L (23-31); Chloride 92 mmol/L (98-107); Globulin 3.2 g/dL (2.4-3.5); Lipase 9 U/L (8-78); Potassium 5.7 mmol/L (3.5-5.1); Protein, Total 6.5 g/dL (6.0-8.3); Sodium 127 mmol/L (136-145)
[2020-07-21 01:10] LABS: Glucose 956 mg/dL (80-115)
[2020-07-21 01:11] LABS: #Basophils 0.1 thou/uL (0.0-0.2); #Eosinphils 0.1 thou/uL (0.0-0.7); #Lymphocytes 0.7 thou/uL (1.20-3.40); #Monocytes 0.9 thou/uL (0.11-0.59); #Neutrophils 13.4 thou/uL (1.40-6.50); %Basophils 0.5 % (0.0-1.0); %Eosinophils 0.4 % (0.0-10.0); %Lymphocytes 4.5 % (21.0-51.0); %Monocytes 6.2 % (0.0-10.0); %Neutrophils 88.4 % (42.0-75.0); Crenated RBC MODERATE= 6-15 cells (100X) (None Seen); Hemoglobin 10.5 g/dL (12.0-16.0); MDiff Complete? YES; Mean Corpuscular HGB CONC 29.5 g/dL (32.0-36.0); Mean Corpuscular Hemoglobin 27.8 pg (27.0-31.0); Mean Corpuscular Volume 94.5 fL (78.0-98.0); Mean Platelet Volume 9.4 fL (7.4-10.4); Platelet Count 219 thou/uL (130-400); RBC Distribution Width 12.4 % (11.5-14.5); Red Blood Cell (RBC) Count 3.76 mill/uL (4.20-5.40); White Blood Cell (WBC) Count 15.1 thou/uL (4.8-10.8)
[2020-07-21 01:15] LABS: Bilirubin Negative (Negative); Blood, Urine Negative (Negative); Clarity Clear (Clear); Glucose, Urine (Dipstick) Greater than 1000 mg/dL (Negative); Ketone, Urine Trace mg/dL (Negative); Leukocyte Negative Leu/uL (Negative); Nitrite Negative (Negative); Protein, Urine (Dipstick) Negative (Neg-Trace); Specific Gravity, Urine 1.021 (1.002-1.036); Urobilinogen Normal mg/dL (Less than 2)
[2020-07-21] MEDS ORDERED: Insulin Regular 300 UNITS/3 ML VIAL ONE (01:37)
[2020-07-21] MEDS ORDERED: INSULIN REGULAR IN 0.9 % NACL 100 UNIT/100 ML BAG ONE (01:37)
[2020-07-21] MEDS ORDERED: Magnesium 2 GM/50 ML BAG (IN WATER) ONE (01:39)
[2020-07-21] MEDS ORDERED: Cefepime 2 GM VIAL ONE (03:45)
[2020-07-21] MEDS ORDERED: Electrolyte Replacement Protocol 1 EACH IVPB PRN (04:02)
[2020-07-21] MEDS ORDERED: traMADol HCl 50 MG TAB PO PRN (04:03)
[2020-07-21] MEDS ORDERED: Montelukast Sodium 10 mg Tablet PO PRN (04:03)
[2020-07-21 04:06] LABS: Lactic Acid 7.2 mmol/L (0.5-2.2)
[2020-07-21] MEDS ORDERED: Electrolyte Replacement Protocol 1 EACH IVPB ONE (04:14)
[2020-07-21] MEDS ORDERED: Sodium Chloride 0.9% 1,000 ML IV PRN ×4 (04:14)
[2020-07-21] MEDS ORDERED: NS 0.9% w/ 20 MEQ KCL 1,000 ML IV PRN (04:14)
[2020-07-21] MEDS ORDERED: Guaifenesin DM 100-10/5 ML UDCUP PO PRN (04:15)
[2020-07-21] MEDS ORDERED: Acetaminophen 325 MG TAB PO PRN (04:15)
[2020-07-21] MEDS ORDERED: Labetalol HCl 100 MG/20 ML VIAL SLOW IVP PRN (04:15)
[2020-07-21] MEDS ORDERED: HUMULIN R 100 UNITS in Sodium Chloride 0.9% 100 ML IVPB SCH (04:15)
[2020-07-21] MEDS ORDERED: HYDROcodone/Acetaminophen 5/325 mg Tablet PO PRN (04:15)
[2020-07-21] MEDS ORDERED: Promethazine HCl 12.5 MG in Sodium Chloride 0.9% 50 ML IVPB PRN (04:15)
[2020-07-21] MEDS ORDERED: Ondansetron PF 4 MG/2 ML Vial IVP PRN (04:15)
--- NOTE | 2020-07-21 04:17 | PDOC.HHP ---
Hospitalist HPI - History of Present Illness Altered mental status History of Present Illness: Patient is a 65 year old female with PMH T1DM who presents to ED via EMS for altered mental status. Patient called EMS for "diabetic problem" and when EMS arrived they found patient altered and with an immeasurably high blood sugar. Per family, patients insulin pump has been broken for a day and half, the AMS st arted about 6pm last night, at baseline patinet is normal function and speech, currently she is alone and is unable to give me any substantial interview, most history obtained from chart review. She had recent vertebral osteomyelitis and was to be treated with antibiotics IV as outpatient under the care of Dr Nails, which was vancomycin, unclear status but family believes she needs a FATOU. Patient also has hypothyroidism, TSH low and free T4 elevated on check here. otherwise, labs in ED very abnormal, see below, suggestive of DKA and dehydration with lactic acidosis, hyperkalemia and hyponatremia, started on insulin and IVF, given cefepime, blood cultures ordered. Hospitalist ROS - Review of Systems ROS unobtainable: due to mental status (altered mental status) - Medication Medications: reviewed, see admission documents for list Hospitalist History - Past Medical History Other Medical History: T1DM, hypothyroidism, glaucoma - Past Surgical History Other Surgical History: Surgical history of orthopedic surgery, RT HIP, 10 finger repairs, knee, rotator cuff, elbow, hysterectomy, C-sect, tonsillectomy. UNABLE TO VERIFY WITH PT 07/20/2020. - Family History Family History: reports: no pertinent history - Social History Smoking Status: Never smoker Alcohol: reports: None Drugs: reports: none - Exam General - other findings: altered mental status Eye: PERRL, anicteric sclera ENT: normocephalic atraumatic, no oropharyngeal lesions, dry oral mucosa Neck: supple, no JVD Heart: RRR, no murmur, no gallops, no rubs Respiratory: CTAB, no wheezes, no rales Gastrointestinal: soft, non-tender, non-distended, normal bowel sounds Extremities: no cyanosis, no clubbing, no edema Skin: no lesions, no rashes Neurological - other findings: altered mental status, no focal deficits Psychiatric - other findings: unable to evaluatedue to altered mental status Hospitalist Results - Labs Result Diagrams: 07/21/20 00:26 07/21/20 03:59 Lab results: WBC 15.1 thou/uL (4.8-10.8) H 07/21/20 00:26 Hgb 10.5 g/dL (12.0-16.0) L 07/21/20 00:26 Hct 35.6 % (36.0-47.0) L 07/21/20 00:26 MCV 94.5 fL (78.0-98.0) 07/21/20 00:26 Plt Count 219 thou/uL (130-400) 07/21/20 00:26 Neutrophils % 88.4 % (42.0-75.0) H 07/21/20 00:26 ESR Westergren 10 mm/hr (Less than 30) 07/21/20 00:26 Sodium 127 mmol/L (136-145) L 07/21/20 00:26 Potassium 5.7 mmol/L (3.5-5.1) H 07/21/20 00:26 Chloride 92 mmol/L (98-107) L 07/21/20 00:26 Carbon Dioxide 9 mmol/L (23-31) L* 07/21/20 00:26 BUN 36 mg/dL (9.8-20.1) H 07/21/20 00:26 Creatinine 2.00 mg/dL (0.6-1.1) H 07/21/20 00:26 Glucose 956 mg/dL (80-115) H* 07/21/20 00:26 Lactic Acid 7.2 mmol/L (0.5-2.2) H* 07/21/20 03:29 Calcium 8.6 mg/dL (7.8-10.44) 07/21/20 00:26 Total Bilirubin 1.6 mg/dL (0.2-1.2) H 07/21/20 00:26 AST 63 U/L (5-34) H 07/21/20 00:26 ALT 61 U/L (8-55) H 07/21/20 00:26 Alkaline Phosphatase 156 U/L (40-110) H 07/21/20 00:26 Creatine Kinase 170 U/L (29-168) H 07/21/20 00:26 Troponin I 0.016 ng/mL (< 0.028) 07/21/20 00:25 Serum Total Protein 6.5 g/dL (6.0-8.3) 07/21/20 00:26 Albumin 3.3 g/dL (3.4-4.8) L 07/21/20 00:26 Lipase 9 U/L (8-78) 07/21/20 00:26 Urine Ketones Trace mg/dL (Negative) A 07/21/20 00:38 Urine Blood Negative (Negative) 07/21/20 00:38 Urine Nitrite Negative (Negative) 07/21/20 00:38 Ur Leukocyte Esterase Negative Tae/uL (Negative) 07/21/20 00:38 Additional comment: VITAL SIGNS FriJul 21, 2020 00:39 Dajuan, RN, Charley BP: 105/67 MAP: 79 Pulse: 97 Resp: 21 (Non-Labored) Pain: UTR O2 sat: 100 on (Room Air) Time: 07/21/2020 00:39. Hospitalist H&P A/P - Plan Plan: Patient is a 65 year old female with PMH T1DM who presents to ED via EMS for altered mental status. # T1DM w/ insulin pump failure # DKA Patient called EMS for "diabetic problem" and when EMS arrived they found patient altered and with an immeasurably high blood sugar. Per family, patients insulin pump has been broken for a day and half, the AMS started about 6pm last night, at baseline patient is normal function and speech - admit to [facility] - DKA protocol - consult critical care medicine # lactic acidosis # hyperkalemia # leukocytosis # possible sepsis # history of vertebral osteomyelitis - patient had recent vertebral osteomyelitis and was to be treated with antibiotics IV as outpatient under the care of Dr Nails, which was vancomycin, unclear status but family believes she needs a FATOU. In ED, got cefepime and blood cultures sent - consult dr Nails who can perhaps help us determine if patient was completely treated or if we need more testing (MRI, FATOU etc) - continue vancomycin for now - follow blood cultures # hypothyroidism - patient with elevated thyroid function testing, hold synthroid and consider restarting lower dose once med rec complete # hyperphosphatemia # hyponatremia # ROBBIN - trend labs, consider nephrology consult if not improving DVT/GI ppx full code
[2020-07-21 04:20] LABS: BUN (Urea Nitrogen) 38 mg/dL (9.8-20.1); Calc. Creatinine Clearance 0 mL/min (70-130); Calcium 8.4 mg/dL (7.8-10.44); Chloride 99 mmol/L (98-107); Potassium 4.7 mmol/L (3.5-5.1); Sodium 130 mmol/L (136-145)
[2020-07-21 04:27] LABS: Carbon Dioxide Less than 8 mmol/L (23-31)
[2020-07-21 04:38] LABS: Glucose 787 mg/dL (80-115)
[2020-07-21] MEDS ORDERED: Zolpidem Tartrate 5 MG TAB PO PRN ×2 (05:16→08:14)
[2020-07-21] MEDS ORDERED: Vancomycin 1 GM in Premix Bag 1 BAG IVPB SCH (05:30)
[2020-07-21] MEDS ORDERED: Vancomycin 1 GM/200 ML BAG ONE (06:09)
[2020-07-21] MEDS ORDERED: LEVOTHYROXINE SODIUM 200 MCG PO SCH (07:30)
--- NOTE | 2020-07-21 07:31 | CT ---
PRELIMINARY REPORT/[facility]/EMERGENCY AFTER HOURS PROCEDURE EXAM: CT Head Without Intravenous Contrast. CLINICAL HISTORY: AMS TECHNIQUE: Axial computed tomography images of the head/brain without intravenous contrast. COMPARISON: None provided. FINDINGS: Ventricles and subarachnoid spaces are normal. A tiny area of low density is seen in the r ight basal ganglia, probably incidental perivascular space. Otherwise, no definite abnormal areas of density are seen in the remainder of the brain parenchyma. No mass-effect or evidence of acute intracranial hemorrhage is seen. On bone windows, the mastoid air cells and middle ear structures are clear. There is near complete s oft tissue opacification of the left sphenoid paranasal sinus, and modest disease in the right sphenoid. Old calcification related to the right orbital globe is noted. IMPRESSION: No acute intracranial abnormality. ELECTRONICALLY SIGNED BY: Ry Gracia MD Jul 21, 2020 2:20:38 AM HYDRATE THICKENER OPERATOR This report is intended for review by the ordering physician only, in accordance of law. If you recei ve this report in error, please call [facility] at [phone]. FINAL REPORT Exam: Head CT without contrast HISTORY: Altered mental status COMPARISON: 05/01/2020 FINDINGS: Hemorrhage: No intraparenchymal hemorrhage or extra-axial hematoma. Brain parenchyma: Cortical echavarria-white matter differentiation is preserved. No mass effect or midline shift. Basilar cisterns are patent. Ventricular system: Ventricles and sulci are patent and symmetric. Calvarium: Intact. Sinuses and mastoid air cells: Chronic opacification of the left sphenoid sinus. Incidentals: Redemonstration of a calcification along the superior aspect of the right orbit. IMPRESSION: 1. This report is in agreement with initial report by [facility]. 2. No acute intracranial process. Transcribed Date/Time: 07/21/2020 7:37 AM
--- NOTE | 2020-07-21 07:53 | RAD ---
EXAM: CHEST ONE VIEW HISTORY: Shortness of breath COMPARISON: 05/01/2020 FINDINGS: Cardiac silhouette is magnified by projection but at the upper limits normal to borderline enlarged. Pulmonary vasculature is within normal limits. There is suggestion of a nodular appearing density in the right upper lung zone overlying the region of the posterior fifth rib which is likely due to v ascular structures, but follow-up PA and lateral chest x-ray is recommended. Lungs are otherwise clear. No other interval change from prior study. IMPRESSION: Questionable nodular density overlying right upper lung zone. This is probably related to vascular st ructures and overlying ribs, but follow-up PA and lateral chest x-ray is recommended for further evaluation.
[2020-07-21 07:59] LABS: Anion Gap 21 mmol/L (10-20); BUN (Urea Nitrogen) 39 mg/dL (9.8-20.1); Calc. Creatinine Clearance 0 mL/min (70-130); Carbon Dioxide 15 mmol/L (23-31); Chloride 102 mmol/L (98-107); Potassium 3.9 mmol/L (3.5-5.1); Sodium 134 mmol/L (136-145)
[2020-07-21 08:00] LABS: Calcium 8.5 mg/dL (7.8-10.44)
[2020-07-21 08:04] LABS: Glucose 728 mg/dL (80-115)
[2020-07-21] MEDS ORDERED: Loratadine 10 MG TAB PO PRN (08:14)
[2020-07-21] MEDS ORDERED: Benzonatate 100 MG CAP PO PRN (08:14)
[2020-07-21] MEDS ORDERED: Cepastat Lozenges 1 LOZ PO PRN (08:14)
[2020-07-21] MEDS ORDERED: GUAIFENESIN SF SOLN 200 MG/10 ML UDCUP PO PRN (08:14)
[2020-07-21] MEDS ORDERED: Ondansetron ODT 4 MG TAB SL PRN (08:14)
[2020-07-21] MEDS ORDERED: Senokot S 8.6-50 MG TAB PO PRN (08:14)
[2020-07-21] MEDS ORDERED: Bisacodyl 5 MG TAB PO PRN (08:14)
[2020-07-21] MEDS ORDERED: Sodium Chloride 0.65% Nasal 44 ML BOT EA NARE PRN (08:14)
[2020-07-21] MEDS ORDERED: Calcium Carbonate 500 MG ChewTAB PO PRN (08:14)
[2020-07-21] MEDS ORDERED: Loperamide HCl 2 MG CAP PO PRN (08:14)
[2020-07-21] MEDS ORDERED: traZODone HCl 50 MG TAB PO PRN (08:50)
[2020-07-21] MEDS ORDERED: Gabapentin 300 MG CAP PO SCH (09:00)
[2020-07-21] MEDS ORDERED: Heparin 5,000 UNITS/ML VIAL SC SCH (09:00)
[2020-07-21] MEDS ORDERED: Bromfenac Sodium [Prolensa] 3 ML Drops R EYE SCH (09:00)
[2020-07-21] MEDS ORDERED: Sodium Chloride 0.9% (PF) 10 ML VIAL FS PRN (09:00)
[2020-07-21] MEDS ORDERED: Famotidine 20 MG TAB PO SCH ×2 (09:00)
[2020-07-21] MEDS: Heparin 5,000 UNITS/ML VIAL SC SCH ×2 (09:55→21:18)
--- NOTE | 2020-07-21 11:04 | CON ---
DATE OF CONSULTATION: 07/21/2020 REASON FOR CONSULTATION: DKA. CONSULTING PHYSICIAN: Dr. Brooks. HISTORY OF PRESENT ILLNESS: This is a 65-year-old female, who has type-1 diabetes mellitus, who was brought in for altered mental status. It looks like she had COVID back in April. She has a recent diagnosis of vertebral osteomyelitis, is being treated by Dr. Nails with IV vancomycin. PAST MEDICAL HISTORY: 1. Type-1 diabetes mellitus. 2. Osteomyelitis. 3. Hypothyroidism. 4. Glaucoma. PAST SURGICAL HISTORY: 1. Right hip surgery. 2. Rotator cuff surgery. 3. Knee surgery. 4. Elbow surgery. 5. Hysterectomy. 6. . 7. Tonsillectomy. FAMILY MEDICAL HISTORY: Unremarkable. SOCIAL HISTORY: Nonsmoker. Does not consume alcohol. Does not use illicit drugs. MEDICATIONS PRIOR TO ADMISSION: These medications are unconfirmed, but are listed on the home medication section on the chart. Inpatient medications were also reviewed. REVIEW OF SYSTEMS: Cannot be obtained as the patient is obtunded. PHYSICAL EXAMINATION: VITAL SIGNS: Pulse 79, blood pressure 108/53, respiratory rate 18, O2 saturation 97% on room air. GENERAL: The patient will open her eyes to deep stimulation, but will not converse with me. HEENT: Otherwise, unremarkable. NECK: No JVD. LUNGS: Clear. CARDIAC: S1, S2. Regular. ABDOMEN: Soft. EXTREMITIES: No edema. LABORATORY DATA: White blood cell count 15, hematocrit 35.6, and platelet count 219. Sodium 134, potassium 3.9, chloride 102, CO2 of 15, BUN 39, creatinine 1.8, glucose 728. Her anion gap is 17. Lactate was 7.2. Urine showed glucose, trace ketones. Procalcitonin is 4.1. I do not see that the beta hydroxybutyrate was done. Chest x-ray shows a question of a right upper lobe nodule, otherwise no infiltrate. ASSESSMENT: 1. DKA/hyperosmolar state. 2. Concurrent lactic acidosis. PLAN: 1. The patient received a dose of vancomycin. Given her elevated lactate, I would probably keep her on some empiric antibiotics until things have sorted themselves out. She has been known to have E coli and Pseudomonas in the urine in the past. 2. Continue with the DKA protocol and IV insulin. 3. Monitor mental status closely. Job ID: [id number]
[2020-07-21 11:08] LABS: Vancomycin, Random 14.3 ug/mL (See Comment)
[2020-07-21 11:34] LABS: Anion Gap 18 mmol/L (10-20); BUN (Urea Nitrogen) 40 mg/dL (9.8-20.1); Calc. Creatinine Clearance 0 mL/min (70-130); Calcium 8.7 mg/dL (7.8-10.44); Carbon Dioxide 16 mmol/L (23-31); Chloride 104 mmol/L (98-107); Potassium 4.2 mmol/L (3.5-5.1); Sodium 134 mmol/L (136-145)
[2020-07-21 11:38] LABS: Glucose 592 mg/dL (80-115)
[2020-07-21] MEDS: Gabapentin 100 MG CAP PO SCH ×3 (11:38→21:18)
[2020-07-21] MEDS: FLUoxetine HCl 10 MG CAP PO SCH (11:38)
[2020-07-21] MEDS: Metoprolol Tartrate 25 MG TAB PO SCH ×2 (11:41→21:18)
[2020-07-21] MEDS: NS 0.9% w/ 20 MEQ KCL 1,000 ML IV PRN ×3 (11:44→16:23)
--- NOTE | 2020-07-21 11:46 | PDOC.HOSPP ---
- Subjective Encounter Date: 07/21/20 Encounter Time: 09:00 Subjective: Patient seen and examined. No overnight events - Objective Vital Signs & Weight: Weight Weight 5.82 oz Result Diagrams: 07/22/20 03:31 07/22/20 03:31 Additional Labs: Accuchecks 07/21/20 07/21/20 11:31 10:23 POC Glucose 449 H 475 H Radiology Reviewed by me: Yes EKG Reviewed by me: Yes Hospitalist ROS - Review of Systems ROS unobtainable: due to mental status - Medication Medications: Active Medications Generic Name Dose Route Start Last Admin Trade Name Freq PRN Reason Stop Dose Admin Fluoxetine HCl 20 mg 07/21/20 09:00 07/21/20 11:38 Fluoxetine Hcl 10 Mg Cap PO Not Given DAILY ERMA Gabapentin 100 mg 07/21/20 09:00 07/21/20 11:38 Gabapentin 100 Mg Cap PO Not Given TID ERMA Heparin Sodium (Porcine) 5,000 units 07/21/20 09:00 07/21/20 09:55 Heparin 5,000 Units/Ml Vial SC 5,000 units Q12HR ERMA Administration Potassium Chloride/Sodium Chloride 1,000 mls @ 250 mls/hr 07/21/20 04:14 07/21/20 07:40 Ns 0.9% W/ 20 Meq Kcl IV 1,000 mls .Q4H PRN Administration SEE STEP 3 OF DKA PROTOCOL Protocol Metoprolol Tartrate 25 mg 07/21/20 09:00 07/21/20 11:41 Metoprolol Tartrate 25 Mg Tab PO Not Given BID ERMA - Exam General Appearance: ill appearing Eye: PERRL, anicteric sclera ENT: normocephalic atraumatic, no oropharyngeal lesions, dry oral mucosa Neck: supple, symmetric, no JVD Heart: RRR, no murmur, no gallops Heart - other findings: Tachycardia Respiratory: no wheezes, no rales, no ronchi Gastrointestinal: soft, non-distended, normal bowel sounds Hosp A/P (1) Acute metabolic encephalopathy Code(s): G93.41 - METABOLIC ENCEPHALOPATHY Status: Acute (2) Transaminitis Code(s): R74.01 - ELEVATION OF LEVELS OF LIVER TRANSAMINASE LEVELS Status: Acute (3) Sepsis with acute organ dysfunction Code(s): A41.9 - SEPSIS, UNSPECIFIED ORGANISM; R65.20 - SEVERE SEPSIS WITHOUT SEPTIC SHOCK Status: Acute Qualifiers: Sepsis type: sepsis due to unspecified organism Severe sepsis acute organ dysfunction type: acute renal failure Severe sepsis shock status: without septic shock (4) Acute kidney failure Status: Acute (5) DKA (diabetic ketoacidoses) Code(s): E11.10 - TYPE 2 DIABETES MELLITUS WITH KETOACIDOSIS WITHOUT COMA Status: Acute Qualifiers: Diabetes mellitus type: type 1 (6) Leukocytosis Code(s): D72.829 - ELEVATED WHITE BLOOD CELL COUNT, UNSPECIFIED Status: Acute (7) Abnormal blood electrolyte level Code(s): E87.8 - OTH DISORDERS OF ELECTROLYTE AND FLUID BALANCE, NEC Status: Acute Plan: On admission patient had hyponatremia which was related with a pseudohypo natremia from hyperglycemia, initially patient had hyperkalemia from acidosis, now electrolytes abnormality improving, will continue to monitor and replace accordingly (8) Metabolic acidosis Code(s): E87.2 - ACIDOSIS Status: Acute Plan: Patient has severe lactic acidosis and metabolic acidosis from DKA (9) Hypothyroidism Code(s): E03.9 - HYPOTHYROIDISM, UNSPECIFIED Status: Chronic Plan: Patient has history of hypothyroidism and she is on levothyroxine, currently patient has hyperthyroidism from increased dose of levothyroxine, will discontinue levothyroxine for now (10) Hypertension Code(s): I10 - ESSENTIAL (PRIMARY) HYPERTENSION Status: Chronic (11) Glaucoma Code(s): H40.9 - UNSPECIFIED GLAUCOMA Status: Chronic (12) Anemia of chronic disease Code(s): D63.8 - ANEMIA IN OTHER CHRONIC DISEASES CLASSIFIED ELSEWHERE Status: Chronic - Plan old records reviewed/req, continue antibiotics Continue DKA protocol ordered Continue empiric cefepime and vancomycin Close monitoring in IMCU Monitor labs We will repeat labs tomorrow Follow-up on culture results Medication reviewed and continue provide symptomatic and supportive care,
[2020-07-21] MEDS: Pantoprazole 40 MG VIAL IVP SCH (11:49)
[2020-07-21 12:03] VITALS: BMI 28.3
[2020-07-21] MEDS: Timolol 0.5% Ophth Soln 5 ml Bottle R EYE SCH (12:05)
[2020-07-21 14:13] LABS: SARS-CoV-2 PCR by NAA Not Detected (NotDetected)
[2020-07-21] MEDS: Cefepime 1 GM in Sodium Chloride 0.9% 100 ML IVPB SCH (16:20)
--- NOTE | 2020-07-21 18:40 | CON ---
DATE OF CONSULTATION: 07/21/2020 CONSULT REASON: Possible sepsis. HISTORY OF PRESENT ILLNESS: A 65-year-old whom I had seen in April 2020, when she presented with a history of type 2 diabetes, a prior infection of the right wrist, which I treated. In April, she presented with altered mental state, hyperglycemia. To make a long story short, she had bacteremia due to MRSA with a lumbosacral spine infection. She was treated for protracted period of time with apparent resolution. After discharge, I have followed the patient over the phone regarding her daptomycin infusion and gave orders to continue until the end of June. On July 10, there was a release note for her to go back to full duty when she had completed the treatment for back infection and then does not look like I actually saw her in the office. She has an appointment scheduled for August 03, 2020. Unfortunately, she became ill and had to be admitted yesterday. The emergency room note was reviewed and basically the patient developed altered mental state on the day of admission. Apparently, her insulin pump was not functioning for a day and a half. On arrival, she had a BP of 107/71, pulse 101, respirations 22, O2 saturation 97% on room air. She was agitated and only responded to painful stimuli. Respiratory exam was described as normal. Heart examination was normal. Abdomen was not tender. Initial findings included negative SARS-CoV-2 RNA PCR. Her white cell count 15.1, hemoglobin 10.5, platelets 219 with 88% neutrophils. Sodium was 127 and her creatinine was abnormal at 2.0 with baseline is below 1 always. She had marked hyperglycemia at 956. Her carbon dioxide was only 9. AST 63, ALT 61, total bilirubin 1.6. Lactic acid 8.5. Urinalysis was essentially negative except for glycosuria, which is expected in her case. Two sets of blood cultures pending. Currently, Ms. Brito is in the IMCU and she responds to my questions by motions with her head. She tries to answer questions, but her mouth is very dry and she has a difficulty in enunciation of words. It is hard to understand when I ask her about headaches and abdominal pain, looks like she does not have headaches or abdominal pain, but other elements of the review of systems are difficult to ascertain. PAST MEDICAL HISTORY: Type 1 diabetes with insulin pump, hypothyroidism, depression, wrist infection due to Staph aureus and then MRSA infection of the lumbosacral spine which she finished treatment at the end of June with daptomycin. 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 Never smoker. FAMILY HISTORY: Alzheimer disease, coronary disease, hemochromatosis. CURRENT MEDICATION LIST: She is receiving; 1. Tessalon. 2. Dulcolax. 3. Cefepime. 4. Prozac. 5. Neurontin. 6. Robitussin. 7. Heparin. 8. Metoprolol. 9. Vancomycin. PHYSICAL EXAMINATION: VITAL SIGNS: Normal temperature since admission and O2 sats are good at 97 on room air, breathing 20 times a minute. She is not tachycardic. BP 114/53. SKIN: Peripheral IV access. She has a Edmonds catheter in place. Otherwise skin normal. No lymphadenopathy. HEENT: Ocular movements conjugate. Oral cavity, very dry and she has quite few teeth in place. No jugular vein distention. HEART: S1 and S2. Regular rate without murmurs. LUNGS: With basilar crackles in the left side. ABDOMEN: Soft, not distended or tender. No ascites. No bladder distention. No joint inflammatory activity. No edema. Pulses 1+ in dorsalis pedis. She was able to move all her extremities on command. LATEST LABORATORY DATA: White cell count has not been repeated and serum glucose is down to 332. Carbon dioxide is up to 16. Chest x-ray without infiltrates noted. CT of brain did not show any acute findings. ASSESSMENT: 1. Type 1 diabetes with diabetic ketoacidosis, apparent malfunction of her insulin pump for the past 2 days. 2. History of recently having completed treatment for methicillin-resistant Staphylococcus aureus bacteremia with LS spine osteomyelitis, diskitis. 3. Altered mental state related to her metabolic encephalopathy from diabetic ketoacidosis. DISCUSSION: Associated infection is yet to be ruled out. She may be bacteremic for example and broad-spectrum coverage is still to be continued and maybe this is all just related to the malfunction of her insulin pump with DKA. Job ID: [id number] [facility]
[2020-07-21] MEDS: D5 1/2 NS w/20 mEq KCL 1,000 ML IV PRN ×2 (19:01→23:11)
[2020-07-21] MEDS ORDERED: Cefepime 1 GM in Sodium Chloride 0.9% 100 ML IVPB SCH (21:00)
[2020-07-21] MEDS ORDERED: traZODone HCl 150 MG TAB PO SCH (21:00)
[2020-07-21 21:08] LABS: Anion Gap 17 mmol/L (10-20); BUN (Urea Nitrogen) 39 mg/dL (9.8-20.1); Calc. Creatinine Clearance 55 mL/min (70-130); Calcium 8.3 mg/dL (7.8-10.44); Carbon Dioxide 13 mmol/L (23-31); Chloride 114 mmol/L (98-107); Glucose 297 mg/dL (80-115); Potassium 6.3 mmol/L (3.5-5.1); Sodium 138 mmol/L (136-145)
[2020-07-22] MEDS ORDERED: Calcium Gluc 4.6 MEQ/10 ML (100 MG/ML) SLOW IVP SCH (00:15)
[2020-07-22] MEDS: Dextrose 5 %-0.45 % NaCl 1,000 ML IV PRN ×2 (00:33→05:32)
[2020-07-22] MEDS ORDERED: Vancomycin 1 GM in Premix Bag 1 BAG IVPB SCH ×2 (03:00→12:00)
[2020-07-22] MEDS: Cefepime 1 GM in Sodium Chloride 0.9% 100 ML IVPB SCH ×2 (03:31→16:47)
[2020-07-22 03:55] LABS: Hemoglobin A1c 7.4 % (4.0-6.0)
[2020-07-22 04:08] LABS: Anion Gap 16 mmol/L (10-20); BUN (Urea Nitrogen) 35 mg/dL (9.8-20.1); Calc. Creatinine Clearance 65 mL/min (70-130); Calcium 8.9 mg/dL (7.8-10.44); Carbon Dioxide 17 mmol/L (23-31); Chloride 111 mmol/L (98-107); Glucose 90 mg/dL (80-115); Magnesium 2.2 mg/dL (1.6-2.6); Potassium 4.7 mmol/L (3.5-5.1); Sodium 139 mmol/L (136-145)
[2020-07-22 04:13] LABS: ALT (SGPT) 54 U/L (8-55); AST (SGOT) 79 U/L (5-34); Albumin 3.1 g/dL (3.4-4.8); Alkaline Phosphatase 133 U/L (40-110); Bilirubin, Direct 0.3 mg/dL (0.1-0.3); Bilirubin, Total 0.5 mg/dL (0.2-1.2); Phosphorus 2.1 mg/dL (2.3-4.7); Protein, Total 6.6 g/dL (6.0-8.3)
[2020-07-22 04:33] LABS: Band 7 % (5-11); Burr Cells SLIGHT = 2-5 cells (100X) (0-1/hpf); Hemoglobin 11.5 g/dL (12.0-16.0); Lymphocytes 3 % (21-51); MDiff Complete? YES; Mean Corpuscular HGB CONC 31.6 g/dL (32.0-36.0); Mean Corpuscular Hemoglobin 27.6 pg (27.0-31.0); Mean Corpuscular Volume 87.5 fL (78.0-98.0); Mean Platelet Volume 8.9 fL (7.4-10.4); Monocytes 2 % (0-10); Neutrophil 88 % (42-75); Platelet Count 218 thou/uL (130-400); Red Blood Cell (RBC) Count 4.15 mill/uL (4.20-5.40); White Blood Cell (WBC) Count 28.9 thou/uL (4.8-10.8)
[2020-07-22] MEDS ORDERED: Dextrose 5% in Water 1,000 ML IV PRN (08:01)
[2020-07-22] MEDS ORDERED: Dextrose 50% Abboject 50 ML SYRINGE SLOW IVP PRN (08:01)
[2020-07-22] MEDS: FLUoxetine HCl 10 MG CAP PO SCH ×2 (08:26→09:55)
[2020-07-22] MEDS: Gabapentin 100 MG CAP PO SCH ×4 (08:26→20:17)
[2020-07-22] MEDS: Metoprolol Tartrate 25 MG TAB PO SCH ×3 (08:26→20:30)
[2020-07-22] MEDS: Trospium 20 MG TAB PO SCH ×3 (08:44→20:29)
[2020-07-22] MEDS: Heparin 5,000 UNITS/ML VIAL SC SCH ×2 (09:55→20:21)
[2020-07-22] MEDS: cycloSPORINE 0.05% Ophthalmic Droperette EA EYE SCH ×2 (09:56→20:20)
[2020-07-22] MEDS: cloNIDine 0.1 MG TAB PO PRN (09:56)
[2020-07-22] MEDS: Pantoprazole 40 MG VIAL IVP SCH (09:56)
[2020-07-22] MEDS: Timolol 0.5% Ophth Soln 5 ml Bottle R EYE SCH (09:57)
--- NOTE | 2020-07-22 10:50 | PDOC.HOSPP ---
- Subjective Encounter Date: 07/22/20 Encounter Time: 10:30 Subjective: Patient is confused, patient is only able to tell her name, she is requiring restraint, she does not have any lateralization, - Objective Vital Signs & Weight: Vital Signs (12 hours) Temp Pulse BP Pulse Ox 07/22/20 09:57 83 146/64 H 07/22/20 09:56 146/64 H 07/22/20 02:29 98 07/22/20 01:03 98.0 F 07/22/20 00:00 97.9 F Weight Admit Weight 2.776 oz Weight 2.776 oz Most Recent Monitor Data Heart Rate from ECG 90 NIBP 181/87 NIBP BP-Mean 118 Respiration from ECG 20 SpO2 97 I&O: 07/21/20 07/22/20 07/23/20 06:59 06:59 06:59 Intake Total 3847.8 Output Total 2505 Balance 1342.8 Result Diagrams: 07/22/20 03:31 07/22/20 03:31 Additional Labs: Accuchecks 07/22/20 07/22/20 07/22/20 07:52 06:30 05:06 POC Glucose 257 H 216 H 167 H 07/22/20 07/22/20 07/22/20 04:08 03:03 01:19 POC Glucose 115 H 92 132 H 07/21/20 07/21/20 07/21/20 23:33 22:34 21:28 POC Glucose 237 H 265 H 252 H 07/21/20 07/21/20 07/21/20 20:34 19:21 18:36 POC Glucose 270 H 193 H 198 H 07/21/20 07/21/20 07/21/20 17:47 15:20 14:19 POC Glucose 213 H 332 H 393 H 07/21/20 07/21/20 07/20/20 12:49 11:31 23:55 POC Glucose 417 H 449 H Greater than 530 H* EKG Reviewed by me: Yes Hospitalist ROS - Review of Systems ROS unobtainable: due to mental status - Medication Medications: Active Medications Generic Name Dose Route Start Last Admin Trade Name Freq PRN Reason Stop Dose Admin Clonidine 0.1 mg 07/21/20 04:15 07/22/20 09:56 Clonidine 0.1 Mg Tab PO 0.1 mg BID PRN Administration SBP > 160 use second Cyclosporine 0.4 ml 07/22/20 09:00 07/22/20 09:56 Cyclosporine 0.05% Ophthalmic Droperette EA EYE 0.4 ml BID ERMA Administration Fluoxetine HCl 20 mg 07/21/20 09:00 07/22/20 09:55 Fluoxetine Hcl 10 Mg Cap PO 20 mg DAILY ERMA Administration Gabapentin 100 mg 07/21/20 09:00 07/22/20 09:55 Gabapentin 100 Mg Cap PO 100 mg TID ERMA Administration Heparin Sodium (Porcine) 5,000 units 07/21/20 09:00 07/22/20 09:55 Heparin 5,000 Units/Ml Vial SC 5,000 units Q12HR ERMA Administration Cefepime HCl 1 gm/ Sodium 100 mls @ 200 mls/hr 07/21/20 16:00 07/22/20 03:31 Chloride IVPB 100 mls 0400,1600 ERMA Administration Metoprolol Tartrate 25 mg 07/21/20 09:00 07/22/20 09:56 Metoprolol Tartrate 25 Mg Tab PO 25 mg BID ERMA Administration Pantoprazole Sodium 40 mg 07/21/20 09:00 07/22/20 09:56 Pantoprazole 40 Mg Vial IVP 40 mg DAILY ERMA Administration Timolol Maleate 1 drop 07/21/20 09:00 07/22/20 09:57 Timolol 0.5% Ophth Soln 5 Ml Bottle R EYE 1 drp DAILY ERMA Administration Trospium 20 mg 07/22/20 09:00 07/22/20 09:56 Trospium 20 Mg Tab PO 20 mg BID ERMA Administration - Exam General Appearance: NAD, awake alert Eye: PERRL, anicteric sclera ENT: normocephalic atraumatic, no oropharyngeal lesions Neck: supple, symmetric, no JVD, no thyromegaly Heart: RRR, no murmur, no gallops, no rubs Respiratory: no wheezes, no rales, no ronchi Gastrointestinal: soft, non-tender, non-distended, normal bowel sounds Extremities: no cyanosis, no clubbing, no edema Skin: normal turgor, no lesions Neurological: no focal deficits Musculoskeletal: normal tone, normal strength Psychiatric: not oriented Hosp A/P (1) Acute metabolic encephalopathy Code(s): G93.41 - METABOLIC ENCEPHALOPATHY Status: Acute (2) Transaminitis Code(s): R74.01 - ELEVATION OF LEVELS OF LIVER TRANSAMINASE LEVELS Status: Acute (3) Sepsis with acute organ dysfunction Code(s): A41.9 - SEPSIS, UNSPECIFIED ORGANISM; R65.20 - SEVERE SEPSIS WITHOUT SEPTIC SHOCK Status: Acute Qualifiers: Sepsis type: sepsis due to unspecified organism Severe sepsis acute organ dysfunction type: acute renal failure Severe sepsis shock status: without septic shock (4) Acute kidney failure Status: Resolved (5) DKA (diabetic ketoacidoses) Code(s): E11.10 - TYPE 2 DIABETES MELLITUS WITH KETOACIDOSIS WITHOUT COMA Status: Resolved Qualifiers: Diabetes mellitus type: type 1 (6) Leukocytosis Code(s): D72.829 - ELEVATED WHITE BLOOD CELL COUNT, UNSPECIFIED Status: Acute (7) Abnormal blood electrolyte level Code(s): E87.8 - OTH DISORDERS OF ELECTROLYTE AND FLUID BALANCE, NEC Status: Acute (8) Metabolic acidosis Code(s): E87.2 - ACIDOSIS Status: Acute (9) Hypothyroidism Code(s): E03.9 - HYPOTHYROIDISM, UNSPECIFIED Status: Chronic (10) Hypertension Code(s): I10 - ESSENTIAL (PRIMARY) HYPERTENSION Status: Chronic (11) Glaucoma Code(s): H40.9 - UNSPECIFIED GLAUCOMA Status: Chronic (12) Anemia of chronic disease Code(s): D63.8 - ANEMIA IN OTHER CHRONIC DISEASES CLASSIFIED ELSEWHERE Status: Chronic - Plan old records reviewed/req, continue antibiotics, speech therapy, DVT proph w/heparin Today we will change Accu-Chek every 4 hourly, and cover with a sliding scale, I have also started long-acting insulin Lantus 5 units subcu twice daily for basal coverage, As patient has poor p.o. intake we will continue with the dextrose with half- normal saline NS with 20 KCl at 70 mill per hour Continue empiric cefepime and vancomycin Close monitoring in IMCU Monitor labs Follow-up on culture results ID and pulmonary recommendation appreciated
[2020-07-22] MEDS ORDERED: D5 1/2 NS w/20 mEq KCL 1,000 ML IV SCH (11:00)
[2020-07-22] MEDS: Insulin Glargine 5 UNITS in Pre-Filled Syringe 1 EACH SC SCH ×2 (11:48→20:21)
[2020-07-22] MEDS: Vancomycin 1 GM in Premix Bag 1 BAG IVPB SCH (11:49)
[2020-07-22] MEDS: HumaLOG 300 UNITS/3 ML VIAL SC PRN ×3 (11:49→20:36)
--- NOTE | 2020-07-22 13:55 | PRG ---
DATE OF SERVICE: 07/22/2020 SUBJECTIVE: She is more awake and talkative than she was yesterday. She has been weaned off the insulin drip. OBJECTIVE: VITAL SIGNS: Her temperature is 98.0, pulse 82, blood pressure 152/61, O2 saturation 96%. HEENT: Unremarkable. NECK: No adenopathy or JVD. CHEST: Fairly clear anteriorly. CARDIAC: S1, S2. Regular. ABDOMEN: Soft. EXTREMITIES: No edema. LABORATORY DATA: White blood cell count 28.9, hematocrit 36.3, and platelet count 218. Last blood glucose 257. Sodium 139, potassium 4.7, chloride 111, CO2 of 17, anion gap 11, BUN 35, creatinine 1.1, glucose 90. ASSESSMENT: 1. Hyperosmolar state/diabetic ketoacidosis. 2. Sepsis syndrome. PLAN: She is continuing antibiotics. Her insulin drip has been weaned off. We will adjust antibiotics based on culture results. She can likely be transferred out to the floor by tomorrow if she is stable. Job ID: [id number]
[2020-07-23] MEDS: Vancomycin 1 GM in Premix Bag 1 BAG IVPB SCH ×3 (00:32→22:57)
[2020-07-23] MEDS: HumaLOG 300 UNITS/3 ML VIAL SC PRN ×3 (00:36→19:02)
[2020-07-23] MEDS: hydrALAZINE 20 MG/ML VIAL SLOW IVP PRN ×2 (02:02→14:53)
[2020-07-23] MEDS: Cefepime 1 GM in Sodium Chloride 0.9% 100 ML IVPB SCH ×2 (03:37→16:36)
[2020-07-23] MEDS: cloNIDine 0.1 MG TAB PO PRN (03:48)
[2020-07-23 07:53] LABS: #Basophils 0.1 thou/uL (0.0-0.2); #Eosinphils 0.1 thou/uL (0.0-0.7); #Monocytes 1.1 thou/uL (0.11-0.59); #Neutrophils 12.6 thou/uL (1.40-6.50); %Basophils 0.4 % (0.0-1.0); %Eosinophils 0.7 % (0.0-10.0); %Lymphocytes 12.4 % (21.0-51.0); %Monocytes 7.2 % (0.0-10.0); %Neutrophils 79.3 % (42.0-75.0); Hemoglobin 11.7 g/dL (12.0-16.0); Mean Corpuscular HGB CONC 31.8 g/dL (32.0-36.0); Mean Corpuscular Hemoglobin 27.3 pg (27.0-31.0); Mean Platelet Volume 9.1 fL (7.4-10.4); Platelet Count 171 thou/uL (130-400); RBC Distribution Width 13.1 % (11.5-14.5); Red Blood Cell (RBC) Count 4.28 mill/uL (4.20-5.40); White Blood Cell (WBC) Count 15.9 thou/uL (4.8-10.8)
[2020-07-23 08:01] LABS: Anion Gap 12 mmol/L (10-20); BUN (Urea Nitrogen) 19 mg/dL (9.8-20.1); Calc. Creatinine Clearance 106 mL/min (70-130); Calcium 8.6 mg/dL (7.8-10.44); Carbon Dioxide 20 mmol/L (23-31); Chloride 105 mmol/L (98-107); Glucose 125 mg/dL (80-115); Magnesium 1.8 mg/dL (1.6-2.6); Potassium 3.5 mmol/L (3.5-5.1); Sodium 133 mmol/L (136-145)
[2020-07-23 08:26] LABS: ALT (SGPT) 39 U/L (8-55); AST (SGOT) 40 U/L (5-34); Alkaline Phosphatase 150 U/L (40-110); Bilirubin, Direct 0.7 mg/dL (0.1-0.3); Bilirubin, Total 1.2 mg/dL (0.2-1.2); Phosphorus 1.3 mg/dL (2.3-4.7); Protein, Total 6.3 g/dL (6.0-8.3)
[2020-07-23] MEDS: Pantoprazole 40 MG VIAL IVP SCH (08:59)
[2020-07-23] MEDS: Trospium 20 MG TAB PO SCH ×2 (08:59→22:56)
[2020-07-23] MEDS: Lisinopril 10 MG TAB PO SCH (08:59)
[2020-07-23] MEDS: Insulin Glargine 5 UNITS in Pre-Filled Syringe 1 EACH SC SCH ×2 (09:00→22:23)
[2020-07-23] MEDS: FLUoxetine HCl 10 MG CAP PO SCH (09:00)
[2020-07-23] MEDS: Metoprolol Tartrate 25 MG TAB PO SCH ×2 (09:00→22:22)
[2020-07-23] MEDS: Heparin 5,000 UNITS/ML VIAL SC SCH ×2 (09:01→22:23)
[2020-07-23] MEDS: Gabapentin 100 MG CAP PO SCH ×3 (09:01→22:21)
[2020-07-23] MEDS ORDERED: Potassium Phosphate 30 MMOL in Sodium Chloride 0.9% 250 ML 250 ML IVPB SCH (09:45)
--- NOTE | 2020-07-23 10:07 | PDOC.HOSPP ---
- Subjective Encounter Date: 07/23/20 Encounter Time: 07:00 Subjective: Patient seen and examined bedside today, patient is more alert, patient is tolerating her diet, no fever, no overnight event, no nausea or vomiting, - Objective Vital Signs & Weight: Vital Signs (12 hours) Temp Pulse Resp BP BP Pulse Ox 07/23/20 08:11 98.0 F 85 16 119/58 L 97 07/23/20 03:48 179/77 H 07/23/20 03:31 97.5 F L 66 18 179/77 H 96 07/23/20 02:02 89 185/88 H 07/22/20 23:20 99.1 F 96 22 H 193/89 H Weight Admit Weight 2.776 oz Weight 181 lb 10.574 oz Most Recent Monitor Data Heart Rate from ECG 86 NIBP 163/82 NIBP BP-Mean 109 Respiration from ECG 19 SpO2 96 I&O: 07/22/20 07/23/20 07/24/20 06:59 06:59 06:59 Intake Total 3847.8 1210 Output Total 2505 1795 Balance 1342.8 -585 Result Diagrams: 07/23/20 07:33 07/23/20 07:33 Additional Labs: Accuchecks 07/23/20 07/23/20 07/23/20 05:38 03:35 00:05 POC Glucose 121 H 135 H 173 H 07/22/20 07/22/20 07/22/20 22:22 20:11 15:57 POC Glucose 226 H 246 H 268 H EKG Reviewed by me: Yes (Normal sinus rhythm) Hospitalist ROS - Review of Systems Constitutional: reports: weakness. denies: fever, chills, sweats, malaise, other Respiratory: denies: cough, dry, shortness of breath, hemoptysis, SOB with excertion, pleuritic pain, sputum, wheezing, other Cardiovascular: denies: chest pain, palpitations, orthopnea, paroxysmal noc. dyspnea, edema, light headedness, other Gastrointestinal: denies: nausea, vomiting, abdominal pain, diarrhea, constipation, melena, hematochezia, other Genitourinary: denies: dysuria, frequency, incontinence, hematuria, retention, other Musculoskeletal: denies: neck pain, shoulder pain, arm pain, back pain, hand pain, leg pain, foot pain, other - Medication Medications: Active Medications Generic Name Dose Route Start Last Admin Trade Name Freq PRN Reason Stop Dose Admin Clonidine 0.1 mg 07/21/20 04:15 07/23/20 03:48 Clonidine 0.1 Mg Tab PO 0.1 mg BID PRN Administration SBP > 160 use second Cyclosporine 0.4 ml 07/22/20 09:00 07/22/20 20:20 Cyclosporine 0.05% Ophthalmic Droperette EA EYE 0.4 ml BID ERMA Administration Fluoxetine HCl 20 mg 07/21/20 09:00 07/23/20 09:00 Fluoxetine Hcl 10 Mg Cap PO 20 mg DAILY ERMA Administration Gabapentin 100 mg 07/21/20 09:00 07/23/20 09:01 Gabapentin 100 Mg Cap PO 100 mg TID ERMA Administration Heparin Sodium (Porcine) 5,000 units 07/21/20 09:00 07/23/20 09:01 Heparin 5,000 Units/Ml Vial SC 5,000 units Q12HR ERMA Administration Hydralazine HCl 10 mg 07/21/20 04:15 07/23/20 02:02 Hydralazine 20 Mg/Ml Vial SLOW IVP 10 mg Q6H PRN Administration SBP GREATER THAN 160 Cefepime HCl 1 gm/ Sodium 100 mls @ 200 mls/hr 07/21/20 16:00 07/23/20 03:37 Chloride IVPB 100 mls 0400,1600 ERMA Administration Insulin Glargine 5 units/ 0.05 mls @ 0 mls/hr 07/22/20 21:00 07/22/20 20:21 Miscellaneous Medication SC 0.05 mls HS ERMA Administration Insulin Glargine 5 units/ 0.05 mls @ 0 mls/hr 07/22/20 09:00 07/23/20 09:00 Miscellaneous Medication SC 0.05 mls QAM ERMA Administration Vancomycin HCl 1 gm/ Device 200 mls @ 200 mls/hr 07/22/20 12:00 07/23/20 00:32 IVPB 200 mls 1200,2359 ERMA Administration Insulin Human Lispro 0 units 07/22/20 08:01 07/23/20 00:36 Humalog 300 Units/3 Ml Vial SC 2 unit .MODERATE SLIDING SC PRN Administration Moderate Correctional Scale Lisinopril 10 mg 07/23/20 09:00 07/23/20 08:59 Lisinopril 10 Mg Tab PO 10 mg DAILY ERMA Administration Metoprolol Tartrate 25 mg 07/21/20 09:00 07/23/20 09:00 Metoprolol Tartrate 25 Mg Tab PO 25 mg BID ERMA Administration Pantoprazole Sodium 40 mg 07/21/20 09:00 07/23/20 08:59 Pantoprazole 40 Mg Vial IVP 40 mg DAILY ERMA Administration Timolol Maleate 1 drop 07/21/20 09:00 07/22/20 09:57 Timolol 0.5% Ophth Soln 5 Ml Bottle R EYE 1 drp DAILY ERMA Administration Trospium 20 mg 07/22/20 09:00 07/23/20 08:59 Trospium 20 Mg Tab PO 20 mg BID ERMA Administration - Exam General Appearance: NAD, awake alert Eye: PERRL, anicteric sclera ENT: normocephalic atraumatic, no oropharyngeal lesions Neck: supple, symmetric, no JVD, no thyromegaly Heart: RRR, no murmur, no gallops, no rubs Respiratory: no wheezes, no rales, no ronchi Gastrointestinal: soft, non-tender, non-distended, normal bowel sounds Extremities: no cyanosis, no clubbing, no edema Skin: normal turgor, no lesions Neurological: no focal deficits Musculoskeletal: normal tone, normal strength Psychiatric: normal affect, normal behavior Hosp A/P (1) Acute metabolic encephalopathy Code(s): G93.41 - METABOLIC ENCEPHALOPATHY Status: Resolved Plan: Metabolic encephalopathy resolved, laboratory parameters are significantly improving, (2) Transaminitis Code(s): R74.01 - ELEVATION OF LEVELS OF LIVER TRANSAMINASE LEVELS Status: Acute Plan: Improving, (3) Sepsis with acute organ dysfunction Code(s): A41.9 - SEPSIS, UNSPECIFIED ORGANISM; R65.20 - SEVERE SEPSIS WITHOUT SE PTIC SHOCK Status: Suspected Qualifiers: Sepsis type: sepsis due to unspecified organism Severe sepsis acute organ dysfunction type: acute renal failure Severe sepsis shock status: without septic shock Plan: On admission based on leukocytosis and her previous history sepsis was suspected, her WBC count is improving, she does not have any fever, no organism in blood culture, currently empirically on cefepime and vancomycin, (4) Acute kidney failure Status: Resolved (5) DKA (diabetic ketoacidoses) Code(s): E11.10 - TYPE 2 DIABETES MELLITUS WITH KETOACIDOSIS WITHOUT COMA Status: Resolved Qualifiers: Diabetes mellitus type: type 1 (6) Leukocytosis Code(s): D72.829 - ELEVATED WHITE BLOOD CELL COUNT, UNSPECIFIED Status: Acute Plan: Improving,? Likely related with DKA and stress response, less likely to be infection (7) Abnormal blood electrolyte level Code(s): E87.8 - OTH DISORDERS OF ELECTROLYTE AND FLUID BALANCE, NEC Status: Acute Plan: Patient has hypophosphatemia, relatively low potassium, will replace potassium phosphate 30 mmol one-time dose (8) Metabolic acidosis Code(s): E87.2 - ACIDOSIS Status: Resolved (9) Hypothyroidism Code(s): E03.9 - HYPOTHYROIDISM, UNSPECIFIED Status: Chronic (10) Hypertension Code(s): I10 - ESSENTIAL (PRIMARY) HYPERTENSION Status: Chronic (11) Glaucoma Code(s): H40.9 - UNSPECIFIED GLAUCOMA Status: Chronic (12) Anemia of chronic disease Code(s): D63.8 - ANEMIA IN OTHER CHRONIC DISEASES CLASSIFIED ELSEWHERE Status: Chronic - Plan old records reviewed/req, continue antibiotics, PT/OT, dc mcknight Discontinue Mcknight catheter Start PT OT Replace potassium phosphate Repeat labs tomorrow If culture remains negative tomorrow then will discontinue antibiotic therapy Medication reviewed and continue provide symptomatic and supportive care Discontinue telemetry and transfer to medical floor Expecting discharge in next 24 to 48 hours. For elevated blood pressure we have added lisinopril on her regimen
[2020-07-23] MEDS: cycloSPORINE 0.05% Ophthalmic Droperette EA EYE SCH ×2 (10:16→22:56)
[2020-07-23] MEDS: Timolol 0.5% Ophth Soln 5 ml Bottle R EYE SCH (10:16)
[2020-07-24] MEDS: Cefepime 1 GM in Sodium Chloride 0.9% 100 ML IVPB SCH (04:37)
[2020-07-24 05:19] LABS: #Eosinphils 0.2 thou/uL (0.0-0.7); #Lymphocytes 1.6 thou/uL (1.20-3.40); #Monocytes 0.8 thou/uL (0.11-0.59); #Neutrophils 7.1 thou/uL (1.40-6.50); %Basophils 0.4 % (0.0-1.0); %Eosinophils 2.4 % (0.0-10.0); %Lymphocytes 16.2 % (21.0-51.0); %Monocytes 7.9 % (0.0-10.0); %Neutrophils 73.1 % (42.0-75.0); Hemoglobin 11.3 g/dL (12.0-16.0); Mean Corpuscular HGB CONC 31.4 g/dL (32.0-36.0); Mean Corpuscular Volume 85.9 fL (78.0-98.0); Mean Platelet Volume 8.9 fL (7.4-10.4); Platelet Count 182 thou/uL (130-400); White Blood Cell (WBC) Count 9.7 thou/uL (4.8-10.8)
[2020-07-24 06:04] LABS: Anion Gap 10 mmol/L (10-20); BUN (Urea Nitrogen) 16 mg/dL (9.8-20.1); Calc. Creatinine Clearance 94 mL/min (70-130); Calcium 8.2 mg/dL (7.8-10.44); Carbon Dioxide 23 mmol/L (23-31); Chloride 105 mmol/L (98-107); Glucose 290 mg/dL (80-115); Magnesium 1.9 mg/dL (1.6-2.6); Phosphorus 2.5 mg/dL (2.3-4.7); Potassium 3.9 mmol/L (3.5-5.1); Sodium 134 mmol/L (136-145)
[2020-07-24] MEDS: HumaLOG 300 UNITS/3 ML VIAL SC PRN ×3 (06:09→18:12)
[2020-07-24] MEDS: Timolol 0.5% Ophth Soln 5 ml Bottle R EYE SCH (08:33)
[2020-07-24] MEDS: cycloSPORINE 0.05% Ophthalmic Droperette EA EYE SCH ×2 (08:33→20:30)
[2020-07-24] MEDS: Lisinopril 10 MG TAB PO SCH (08:35)
[2020-07-24] MEDS: Gabapentin 100 MG CAP PO SCH ×3 (08:35→20:30)
[2020-07-24] MEDS: Metoprolol Tartrate 25 MG TAB PO SCH ×2 (08:35→20:30)
[2020-07-24] MEDS: Pantoprazole 40 MG VIAL IVP SCH (08:36)
[2020-07-24] MEDS: Heparin 5,000 UNITS/ML VIAL SC SCH ×2 (08:36→20:30)
[2020-07-24 09:02] LABS: Base Excess-Venous -15.8 mmol/L (-2.0 to 3.0); Bicarbonate (HCO3v) 9.6 mmol/L (22.0-28.0); CO2 Tension (PvCO2) 21.8 mmHg (40.0-50.0)
[2020-07-24 09:03] LABS: Calcium, Ionized 0.89 mmol/L (1.15-1.33); Chloride 97 mmol/L (98-107); Hemoglobin - Calc 11.1 g/dL (12.0-16.0); Potassium 5.6 mmol/L (3.5-5.1); Sodium 125 mmol/L (138-145); T. Carbon Dioxide 10.3 mmol/L (22.0-28.0); vO2 Saturation-calc 80.6 % (60.0-85.0)
[2020-07-24] MEDS: Trospium 20 MG TAB PO SCH ×2 (10:35→20:30)
[2020-07-24] MEDS: FLUoxetine HCl 10 MG CAP PO SCH (10:35)
--- NOTE | 2020-07-24 11:01 | PDOC.DS.DS ---
Provider - Provider Date of Admission: 07/21/20 02:43 Date of Discharge: 07/24/20 Admitting Provider: Anoop Brooks MD Consultations: Infectious Disease, Pulmonary Primary Care Physician: Matthew Mcpherson MD Course - Hospital Course Hospital Course: 65 year old female with PMH T1DM who presents to ED via EMS for altered mental status. Patient called EMS for "diabetic problem" and when EMS arrived they found patient altered and with an immeasurably high blood sugar. Per family, patients insulin pump has been broken for a day and half, the AMS started about 6pm last night, at baseline patinet is normal function and speech, currently she is alone and is unable to give me any substantial interview, most history obtained from chart review. She had recent vertebral osteomyelitis and was to be treated with antibiotics IV as outpatient under the care of Dr Nails, which was vancomycin, unclear status but family believes she needs a FATOU. Patient also has hypothyroidism, TSH low and free T4 elevated on check here. otherwise, labs in ED very abnormal, see below, suggestive of DKA and dehydration with lactic acidosis, hyperkalemia and hyponatremia, started on insulin and IVF, given cefepime, blood cultures ordered Patient was admitted for diabetes ketoacidosis, she also had metabolic encephalopathy, there was initial concern of sepsis , patient was admitted in IMCU, she was treated with the diabetes ketoacidosis protocol treatment. On admission chest x-ray was normal, CT brain was negative, After DKA protocol her DKA completely resolved, her altered mental status which was attributed to be due to metabolic encephalopathy it was also resolved, speech therapy was consulted for her swallow evaluation and she passed her swallow evaluation. We discontinued all fluid and started on insulin long- acting and short-acting while in hospital. Patient was on insulin pump prior to admission so she will continue her insulin pump, patient needs to follow-up with endocrinology as early as possible to fix the problem. Initially she was given broad-spectrum antibiotic coverage with cefepime and vancomycin for suspected sepsis but that has been completely ruled out, patient does not have any more sepsis, we discontinue antibiotic therapy all cultures remain negative, infectious disease also evaluated this patient. Patient was a febrile while in hospital. Upon discharge patient will continue all her previous medication, for her elevated blood pressure we have started lisinopril. Patient did very well with the PT OT, patient is medically stable for discharge. Resuscitation Status: 07/21/20 04:15 Resuscitation Status Routine Resuscitation Status: FULL: Full Resuscitation - Labs Lab Results: 07/24/20 05:00 07/24/20 05:00 Abnormal Lab Results - Last 48 hrs 07/21/20 00:53: POC Venous Hct 33.0 L, POC Bicarbonate Calc 9.6 L*, VBG pCO2 21.8 L*, VBG pO2 50.6 H, POC VBG CO2 (Calc) 10.3 L, POC VBG Hemoglobin Calc 11.1 L, POC Venous Sodium 125 L, POC Venous Potassium 5.6 H, POC Venous Chloride 97 L, POC Gavino Anion Gap Calc 24 H, POC Venous Ion Calcium 0.89 L 07/23/20 07:33: Sodium 133 L, Carbon Dioxide 20 L 07/23/20 07:33: Phosphorus 1.3 L, Direct Bilirubin 0.7 H, AST 40 H, Alkaline Phosphatase 150 H, Albumin 3.0 L 07/23/20 07:33: WBC 15.9 H, Hgb 11.7 L, MCHC 31.8 L, Neutrophils % 79.3 H, Lymphocytes % 12.4 L, Neutrophils # 12.6 H, Monocytes # 1.1 H 07/24/20 05:00: Sodium 134 L 07/24/20 05:00: Hgb 11.3 L, MCHC 31.4 L, Lymphocytes % 16.2 L, Neutrophils # 7.1 H, Monocytes # 0.8 H Microbiology - Entire Visit 07/21/20 13:49 Venous blood - Left Arm Blood Culture - Preliminary NO GROWTH AT 48 HOURS 07/21/20 13:49 Venous blood - Right Hand Blood Culture - Preliminary NO GROWTH AT 48 HOURS 07/21/20 01:20 Venous blood - Left Arm Blood Culture - Preliminary NO GROWTH AT 48 HOURS 07/21/20 00:26 Venous blood - Left Arm Blood Culture - Preliminary NO GROWTH AT 48 HOURS 07/21/20 00:38 Urine mcknight catheter Urine Culture - Final - Physical Exam Vitals: Vital Signs (12 hours) Temp Pulse Resp BP BP Pulse Ox 07/24/20 08:33 87 156/88 H 07/24/20 07:40 98 07/24/20 07:06 98.5 F 85 18 156/68 H 99 07/24/20 04:00 97.6 F 87 18 151/82 H 98 07/23/20 23:59 98.1 F 82 18 124/71 96 Weight Admit Weight 2.776 oz Weight 182 lb 3.2 oz Most Recent Monitor Data Heart Rate from ECG 86 NIBP 163/82 NIBP BP-Mean 109 Respiration from ECG 19 SpO2 96 Physical Exam: The patient was seen and examined on the day of discharge. General patient is currently alert and awake no acute distress Head normocephalic atraumatic Neck supple no JVD no meningeal signs of irritation Lungs clear to auscultation without any rhonchi or rales Cardiac S1-S2 regular, no murmur no gallop no rub Abdomen soft, bowel sound present, nontender nondistended no organomegaly no mass Extremity no edema good distal pulsation Skin no skin rash Hematological system no lymphadenopathy Neurologic nonfocal examination Problem - Problem (1) Acute metabolic encephalopathy Code(s): G93.41 - METABOLIC ENCEPHALOPATHY Status: Resolved (2) Transaminitis Code(s): R74.01 - ELEVATION OF LEVELS OF LIVER TRANSAMINASE LEVELS Status: Acute (3) Sepsis with acute organ dysfunction Code(s): A41.9 - SEPSIS, UNSPECIFIED ORGANISM; R65.20 - SEVERE SEPSIS WITHOUT SEPTIC SHOCK Status: Suspected Qualifiers: Sepsis type: sepsis due to unspecified organism Severe sepsis acute organ dysfunction type: acute renal failure Severe sepsis shock status: without septic shock (4) Acute kidney failure Status: Resolved (5) DKA (diabetic ketoacidoses) Code(s): E11.10 - TYPE 2 DIABETES MELLITUS WITH KETOACIDOSIS WITHOUT COMA Status: Resolved Qualifiers: Diabetes mellitus type: type 1 (6) Leukocytosis Code(s): D72.829 - ELEVATED WHITE BLOOD CELL COUNT, UNSPECIFIED Status: Acute (7) Abnormal blood electrolyte level Code(s): E87.8 - OTH DISORDERS OF ELECTROLYTE AND FLUID BALANCE, NEC Status: Acute (8) Metabolic acidosis Code(s): E87.2 - ACIDOSIS Status: Resolved (9) Hypothyroidism Code(s): E03.9 - HYPOTHYROIDISM, UNSPECIFIED Status: Chronic (10) Hypertension Code(s): I10 - ESSENTIAL (PRIMARY) HYPERTENSION Status: Chronic (11) Glaucoma Code(s): H40.9 - UNSPECIFIED GLAUCOMA Status: Chronic (12) Anemia of chronic disease Code(s): D63.8 - ANEMIA IN OTHER CHRONIC DISEASES CLASSIFIED ELSEWHERE Status: Chronic Plan - Discharge Medications Prescriptions: Lisinopril [Zestril] 10 mg PO DAILY #30 tab Home Medications: Medication Instructions Recorded Confirmed Type FLUoxetine HCl [Prozac] 20 mg PO DAILY 01/22/13 07/21/20 History Gabapentin [Neurontin] 300 mg PO TID 01/22/13 07/21/20 History Levothyroxine Sodium [Levothroid] 200 mcg PO DAILY-AC 01/22/13 07/21/20 History Potassium Chloride [Klor-Con 10] 10 meq PO DAILY 01/22/13 07/21/20 History Trazodone HCl [traZODone HCl] 150 mg PO HS 01/22/13 07/21/20 History Solifenacin Succinate [VESIcare] 10 mg PO DAILY 07/08/17 07/21/20 History Zolpidem Tartrate 10 mg PO HS PRN 07/08/17 07/21/20 History Restasis [Restasis Ophth Drops] 1 drop EA EYE BID 07/09/17 07/21/20 History Estrogens, Conjugated [Premarin 1 gm VAG MWF 05/01/20 07/21/20 History Cream] HumaLOG [HumaLOG Vial] 6 units SQ SEEPHYS 05/01/20 07/21/20 History Montelukast Sodium 1 tab PO DAILY PRN 05/01/20 07/21/20 History Metoprolol Tartrate [Lopressor] 25 mg PO BID #60 tab 05/08/20 07/21/20 Rx traMADol HCl [Ultram] 50 mg PO Q6H PRN #30 tab 05/08/20 07/21/20 Rx Lisinopril [Zestril] 10 mg PO DAILY #30 tab 07/24/20 Rx Allergies: ibuprofen Allergy (Verified 09/24/19 11:50) Sulfa (Sulfonamide Antibiotics) Allergy (Verified 09/24/19 11:50) thimerosal Allergy (Verified 05/01/20 08:34) THIO Allergy (Unknown, Uncoded 09/24/19 11:50) THIOMERSAL PRESERVATIVE IN CONTACT SOLUTION - Discharge Instructions Discharge Instructions:: MONITOR YOUR BLOOD SUGAR BEFORE EATING AND AT BED TIME, TAKE ALL MEDICATION DIRECTED BY YOUR PHYSICIAN, FOLLOW UP WITH YOUR PRIMARY CARE PHYSICIAN SOON POSSIBLE. Activity:: Activity as Tolerated Nourishment:: Diabetic Diet Therapies:: Not Applicable Equipment/Supplies:: Not Applicable IV Therapy:: Not Applicable - Follow up Plan Referrals: Matthew Mcpherson MD [Primary Care Provider] - (CALL MD'S OFFICE FOR APOINTMENT.) Disposition: HOME Quality - Care Measures CORE MEASURES:: N/A
--- NOTE | 2020-07-24 12:18 | PDOC.HOSPP ---
- Subjective Encounter Date: 07/24/20 Encounter Time: 11:20 Subjective: Patient seen and examined. No new complaints. No overnight events - Objective Vital Signs & Weight: Vital Signs (12 hours) Temp Pulse Pulse Resp BP BP BP 07/24/20 10:55 97.6 F 85 18 169/77 H 07/24/20 10:41 85 166/77 H 07/24/20 08:33 87 156/88 H 07/24/20 07:40 07/24/20 07:06 98.5 F 85 18 156/68 H 07/24/20 04:00 97.6 F 87 18 151/82 H Pulse Ox 07/24/20 10:55 99 07/24/20 10:41 07/24/20 08:33 07/24/20 07:40 98 07/24/20 07:06 99 07/24/20 04:00 98 Weight Admit Weight 2.776 oz Weight 182 lb 3.2 oz Most Recent Monitor Data Heart Rate from ECG 86 NIBP 163/82 NIBP BP-Mean 109 Respiration from ECG 19 SpO2 96 I&O: 07/23/20 07/24/20 07/25/20 06:59 06:59 06:59 Intake Total 1210 1860 Output Total 1795 1450 Balance -585 410 Result Diagrams: 07/24/20 05:00 07/24/20 05:00 Additional Labs: Accuchecks 07/24/20 07/24/20 07/23/20 10:48 05:46 20:11 POC Glucose 285 H 255 H 289 H 07/23/20 07/22/20 07/21/20 18:47 11:43 16:26 POC Glucose 315 H 289 H 261 H 07/21/20 07/21/20 07/21/20 09:24 08:35 07:26 POC Glucose 522 H 523 H Greater than 530 H* 07/21/20 07/21/20 07/21/20 06:18 03:58 02:50 POC Glucose Greater than 530 H* Greater than 530 H* Greater than 530 H* Hospitalist ROS - Review of Systems ENT: denies: ear pain, ear discharge, nose pain, nose discharge, nose co ngestion, mouth pain, mouth swelling, throat pain, throat swelling, other Respiratory: denies: cough, dry, shortness of breath, hemoptysis, SOB with excertion, pleuritic pain, sputum, wheezing, other Cardiovascular: denies: chest pain, palpitations, orthopnea, paroxysmal noc. dyspnea, edema, light headedness, other Gastrointestinal: denies: nausea, vomiting, abdominal pain, diarrhea, constipation, melena, hematochezia, other Genitourinary: denies: dysuria, frequency, incontinence, hematuria, retention, other Musculoskeletal: denies: neck pain, shoulder pain, arm pain, back pain, hand pain, leg pain, foot pain, other - Medication Medications: Active Medications Generic Name Dose Route Start Last Admin Trade Name Freq PRN Reason Stop Dose Admin Clonidine 0.1 mg 07/21/20 04:15 07/23/20 03:48 Clonidine 0.1 Mg Tab PO 0.1 mg BID PRN Administration SBP > 160 use second Cyclosporine 0.4 ml 07/22/20 09:00 07/24/20 08:33 Cyclosporine 0.05% Ophthalmic Droperette EA EYE 0.4 ml BID ERMA Administration Fluoxetine HCl 20 mg 07/21/20 09:00 07/24/20 10:35 Fluoxetine Hcl 10 Mg Cap PO 20 mg DAILY ERMA Administration Gabapentin 100 mg 07/21/20 09:00 07/24/20 08:35 Gabapentin 100 Mg Cap PO 100 mg TID ERMA Administration Heparin Sodium (Porcine) 5,000 units 07/21/20 09:00 07/24/20 08:36 Heparin 5,000 Units/Ml Vial SC 5,000 units Q12HR ERMA Administration Hydralazine HCl 10 mg 07/21/20 04:15 07/23/20 14:53 Hydralazine 20 Mg/Ml Vial SLOW IVP 10 mg Q6H PRN Administration SBP GREATER THAN 160 Insulin Human Lispro 0 units 07/22/20 08:01 07/24/20 06:09 Humalog 300 Units/3 Ml Vial SC 6 unit .MODERATE SLIDING SC PRN Administration Moderate Correctional Scale Lisinopril 10 mg 07/23/20 09:00 07/24/20 08:35 Lisinopril 10 Mg Tab PO 10 mg DAILY ERMA Administration Metoprolol Tartrate 25 mg 07/21/20 09:00 07/24/20 08:35 Metoprolol Tartrate 25 Mg Tab PO 25 mg BID ERMA Administration Timolol Maleate 1 drop 07/21/20 09:00 07/24/20 08:33 Timolol 0.5% Ophth Soln 5 Ml Bottle R EYE 1 drp DAILY ERMA Administration Trospium 20 mg 07/22/20 09:00 07/24/20 10:35 Trospium 20 Mg Tab PO 20 mg BID ERMA Administration - Exam General Appearance: NAD, awake alert Eye: PERRL, anicteric sclera ENT: normocephalic atraumatic, no oropharyngeal lesions Neck: supple, symmetric, no JVD Heart: RRR, no murmur, no gallops Respiratory: no wheezes, no rales, no ronchi Gastrointestinal: soft, non-tender, non-distended, normal bowel sounds Extremities: no cyanosis, no clubbing, no edema Skin: normal turgor, no lesions Neurological: no focal deficits Musculoskeletal: normal tone, normal strength Psychiatric: normal affect, normal behavior Hosp A/P (1) Acute metabolic encephalopathy Code(s): G93.41 - METABOLIC ENCEPHALOPATHY Status: Resolved (2) Transaminitis Code(s): R74.01 - ELEVATION OF LEVELS OF LIVER TRANSAMINASE LEVELS Status: Acute (3) Sepsis with acute organ dysfunction Code(s): A41.9 - SEPSIS, UNSPECIFIED ORGANISM; R65.20 - SEVERE SEPSIS WITHOUT SEPTIC SHOCK Status: Suspected Qualifiers: Sepsis type: sepsis due to unspecified organism Severe sepsis acute organ dysfunction type: acute renal failure Severe sepsis shock status: without septic shock (4) Acute kidney failure Status: Resolved (5) DKA (diabetic ketoacidoses) Code(s): E11.10 - TYPE 2 DIABETES MELLITUS WITH KETOACIDOSIS WITHOUT COMA Status: Resolved Qualifiers: Diabetes mellitus type: type 1 (6) Leukocytosis Code(s): D72.829 - ELEVATED WHITE BLOOD CELL COUNT, UNSPECIFIED Status: Acute (7) Abnormal blood electrolyte level Code(s): E87.8 - OTH DISORDERS OF ELECTROLYTE AND FLUID BALANCE, NEC Status: Acute (8) Metabolic acidosis Code(s): E87.2 - ACIDOSIS Status: Resolved (9) Hypothyroidism Code(s): E03.9 - HYPOTHYROIDISM, UNSPECIFIED Status: Chronic (10) Hypertension Code(s): I10 - ESSENTIAL (PRIMARY) HYPERTENSION Status: Chronic (11) Glaucoma Code(s): H40.9 - UNSPECIFIED GLAUCOMA Status: Chronic (12) Anemia of chronic disease Code(s): D63.8 - ANEMIA IN OTHER CHRONIC DISEASES CLASSIFIED ELSEWHERE Status: Chronic - Plan old records reviewed/req Medically stable for discharge Follow-up with endocrinology for insulin pump Resume your medication We will discharge her home today See my discharge summary D
[2020-07-24] MEDS: Insulin Glargine 10 UNITS in Pre-Filled Syringe 1 EACH SC SCH ×2 (13:39→21:14)
[2020-07-24] MEDS: cloNIDine 0.1 MG TAB PO PRN (14:41)
[2020-07-25] MEDS: hydrALAZINE 20 MG/ML VIAL SLOW IVP PRN ×2 (00:21→15:17)
[2020-07-25] MEDS: cloNIDine 0.1 MG TAB PO PRN (03:30)
[2020-07-25] MEDS: cycloSPORINE 0.05% Ophthalmic Droperette EA EYE SCH ×2 (09:51→23:01)
[2020-07-25] MEDS: Timolol 0.5% Ophth Soln 5 ml Bottle R EYE SCH (09:51)
[2020-07-25] MEDS: FLUoxetine HCl 10 MG CAP PO SCH (09:52)
[2020-07-25] MEDS: Metoprolol Tartrate 25 MG TAB PO SCH ×2 (09:52→23:01)
[2020-07-25] MEDS: Trospium 20 MG TAB PO SCH ×2 (09:52→23:00)
[2020-07-25] MEDS: Gabapentin 100 MG CAP PO SCH ×3 (09:52→23:00)
[2020-07-25] MEDS: Lisinopril 10 MG TAB PO SCH (09:52)
[2020-07-25] MEDS: Heparin 5,000 UNITS/ML VIAL SC SCH ×2 (09:53→23:01)
[2020-07-25] MEDS: Insulin Glargine 10 UNITS in Pre-Filled Syringe 1 EACH SC SCH ×2 (09:53→23:01)
--- NOTE | 2020-07-25 12:25 | PDOC.HOSPP ---
- Subjective Encounter Date: 07/25/20 Encounter Time: 08:10 Subjective: Patient seen and examined bedside today, when I was in her room I did a Mini- Mental status examination and she answered most of the question correctly, nurse was reporting me that she appeared confused earlier, she is moving all 4 limbs, she does not have any headache, - Objective Vital Signs & Weight: Vital Signs (12 hours) Temp Pulse Resp BP BP Pulse Ox 07/25/20 09:52 146/70 H 07/25/20 09:51 85 146/70 H 07/25/20 07:07 97.8 F 85 18 146/70 H 93 L 07/25/20 03:30 166/70 H 07/25/20 03:23 98.1 F 92 16 166/70 H 97 Weight Admit Weight 2.776 oz Weight 182 lb 4.8 oz Most Recent Monitor Data Heart Rate from ECG 86 NIBP 163/82 NIBP BP-Mean 109 Respiration from ECG 19 SpO2 96 I&O: 07/24/20 07/25/20 07/26/20 06:59 06:59 06:59 Intake Total 1860 1450 Output Total 1450 50 Balance 410 1400 Result Diagrams: 07/24/20 05:00 07/24/20 05:00 Additional Labs: Accuchecks 07/25/20 07/25/20 07/24/20 12:06 05:45 20:27 POC Glucose 151 H 137 H 176 H 07/24/20 16:30 POC Glucose 220 H Hospitalist ROS - Review of Systems ENT: denies: ear pain, ear discharge, nose pain, nose discharge, nose congestion, mouth pain, mouth swelling, throat pain, throat swelling, other Respiratory: denies: cough, dry, shortness of breath, hemoptysis, SOB with excertion, pleuritic pain, sputum, wheezing, other Cardiovascular: denies: chest pain, palpitations, orthopnea, paroxysmal noc. dyspnea, edema, light headedness, other Gastrointestinal: denies: nausea, vomiting, abdominal pain, diarrhea, constipation, melena, hematochezia, other Genitourinary: denies: dysuria, frequency, incontinence, hematuria, retention, other Musculoskeletal: denies: neck pain, shoulder pain, arm pain, back pain, hand pain, leg pain, foot pain, other Skin: denies: rash, lesions, ramon, bruising, other - Medication Medications: Active Medications Generic Name Dose Route Start Last Admin Trade Name Freq PRN Reason Stop Dose Admin Clonidine 0.1 mg 07/21/20 04:15 07/25/20 03:30 Clonidine 0.1 Mg Tab PO 0.1 mg BID PRN Administration SBP > 160 use second Cyclosporine 0.4 ml 07/22/20 09:00 07/25/20 09:51 Cyclosporine 0.05% Ophthalmic Droperette EA EYE 0.4 ml BID ERMA Administration Fluoxetine HCl 20 mg 07/21/20 09:00 07/25/20 09:52 Fluoxetine Hcl 10 Mg Cap PO 20 mg DAILY ERMA Administration Gabapentin 100 mg 07/21/20 09:00 07/25/20 09:52 Gabapentin 100 Mg Cap PO 100 mg TID ERMA Administration Heparin Sodium (Porcine) 5,000 units 07/21/20 09:00 07/25/20 09:53 Heparin 5,000 Units/Ml Vial SC 5,000 units Q12HR ERMA Administration Hydralazine HCl 10 mg 07/21/20 04:15 07/25/20 00:21 Hydralazine 20 Mg/Ml Vial SLOW IVP 10 mg Q6H PRN Administration SBP GREATER THAN 160 Insulin Glargine 10 units/ 0.1 mls @ 0 mls/hr 07/24/20 21:00 07/24/20 21:14 Miscellaneous Medication SC 0.1 mls HS ERMA Administration Insulin Glargine 10 units/ 0.1 mls @ 0 mls/hr 07/24/20 09:00 07/25/20 09:53 Miscellaneous Medication SC 0.1 mls QAM ERMA Administration Insulin Human Lispro 0 units 07/22/20 08:01 07/24/20 18:12 Humalog 300 Units/3 Ml Vial SC 4 unit .MODERATE SLIDING SC PRN Administration Moderate Correctional Scale Lisinopril 10 mg 07/23/20 09:00 07/25/20 09:52 Lisinopril 10 Mg Tab PO 10 mg DAILY ERMA Administration Metoprolol Tartrate 25 mg 07/21/20 09:00 07/25/20 09:52 Metoprolol Tartrate 25 Mg Tab PO 25 mg BID ERMA Administration Pantoprazole Sodium 40 mg 07/25/20 09:00 07/25/20 09:52 Pantoprazole 40 Mg Tab PO 40 mg DAILY ERMA Administration Timolol Maleate 1 drop 07/21/20 09:00 07/25/20 09:51 Timolol 0.5% Ophth Soln 5 Ml Bottle R EYE 1 drp DAILY ERMA Administration Trospium 20 mg 07/22/20 09:00 07/25/20 09:52 Trospium 20 Mg Tab PO 20 mg BID ERMA Administration - Exam General Appearance: NAD, awake alert Eye: PERRL, anicteric sclera ENT: normocephalic atraumatic, no oropharyngeal lesions Neck: supple, symmetric, no JVD, no thyromegaly Heart: RRR, no murmur, no gallops, no rubs Respiratory: no wheezes, no rales, no ronchi Gastrointestinal: soft, non-tender, non-distended, normal bowel sounds Extremities: no cyanosis, no clubbing, no edema Skin: normal turgor, no lesions Neurological: no focal deficits Musculoskeletal: normal tone, normal strength Psychiatric: normal affect, normal behavior, A&O x 3 Hosp A/P (1) Acute metabolic encephalopathy Code(s): G93.41 - METABOLIC ENCEPHALOPATHY Status: Resolved (2) Transaminitis Code(s): R74.01 - ELEVATION OF LEVELS OF LIVER TRANSAMINASE LEVELS Status: Acute (3) Sepsis with acute organ dysfunction Code(s): A41.9 - SEPSIS, UNSPECIFIED ORGANISM; R65.20 - SEVERE SEPSIS WITHOUT SEPTIC SHOCK Status: Suspected Qualifiers: Sepsis type: sepsis due to unspecified organism Severe sepsis acute organ dysfunction type: acute renal failure Severe sepsis shock status: without septic shock (4) Acute kidney failure Status: Resolved (5) DKA (diabetic ketoacidoses) Code(s): E11.10 - TYPE 2 DIABETES MELLITUS WITH KETOACIDOSIS WITHOUT COMA Status: Resolved Qualifiers: Diabetes mellitus type: type 1 (6) Leukocytosis Code(s): D72.829 - ELEVATED WHITE BLOOD CELL COUNT, UNSPECIFIED Status: Acute (7) Abnormal blood electrolyte level Code(s): E87.8 - OTH DISORDERS OF ELECTROLYTE AND FLUID BALANCE, NEC Status: Acute (8) Metabolic acidosis Code(s): E87.2 - ACIDOSIS Status: Resolved (9) Hypothyroidism Code(s): E03.9 - HYPOTHYROIDISM, UNSPECIFIED Status: Chronic (10) Hypertension Code(s): I10 - ESSENTIAL (PRIMARY) HYPERTENSION Status: Chronic (11) Glaucoma Code(s): H40.9 - UNSPECIFIED GLAUCOMA Status: Chronic (12) Anemia of chronic disease Code(s): D63.8 - ANEMIA IN OTHER CHRONIC DISEASES CLASSIFIED ELSEWHERE Status: Chronic - Plan old records reviewed/req, plan discussed w/ family, PT/OT, DVT proph w/heparin Patient is medically stable, Patient may have intermittent confusion probably related with her brain fogginess from recent hyperosmolar state, she does not have any focal neurological deficit, expecting slow improvement, needs more PT OT and better control of her diabetes and blood pressure, based on patient's family member kristian jesus and patient's nurse concern I have decided to consult neurology for evaluation, I have done discharge summary Patient will benefit from endocrinology follow-up as early as possible given her insulin pump is not functioning properly, in that case we will consider giving her long-acting insulin and short-acting insulin upon discharge, will also consult residential case manager for any discharge needs
[2020-07-25 14:35] LABS: Bilirubin Negative (Negative); Blood, Urine Negative (Negative); Clarity Clear (Clear); Glucose, Urine (Dipstick) Normal (Negative); Ketone, Urine Negative (Negative); Leukocyte Negative Leu/uL (Negative); Nitrite Negative (Negative); Protein, Urine (Dipstick) Negative (Neg-Trace); pH, Urine 5.5 (5.0-9.0)
--- NOTE | 2020-07-25 14:51 | MRI ---
MRI OF THE BRAIN WITHOUT CONTRAST: 07/25/20 HISTORY: Altered mental status. FINDINGS: Correlation is made with the CT scan of 07/21/20. No restricted diffusion is seen. There are a few foci of T2 prolongation in the periventricular white matter consistent with mild chronic small vessel ischemic disease. The ventricular size is appropri ate and the basilar cisterns patent. No evidence of infarct, hemorrhage, midline shift, or abnormal e xtra-axial fluid collections are seen. The visualized paranasal sinuses and mastoid air cells are wel l aerated. IMPRESSION: No evidence of acute intracranial process. POS: AH
--- NOTE | 2020-07-25 15:34 | CON ---
NEUROLOGY CONSULTATION DATE OF CONSULTATION: 07/25/2020 REASON FOR CONSULTATION: Altered mental status. HISTORY OF PRESENT ILLNESS: Ms. Brito is a 65-year-old female with medical history significant for type 1 diabetes mellitus, presented to the emergency room with altered mental status on 07/21/2020. Per EMS, she was extremely altered and had extremely high blood sugar. Per family, the patient's insulin pump has been broken and she has not been checking her blood glucose. She was admitted and was found to be in diabetic ketoacidosis and dehydration with lactic acidosis, hyperkalemia, hyponatremia, and was started on insulin and intravenous fluid and was given cefepime and managed accordingly. The patient continues to remain altered despite the blood sugar is now under control, so Neurology was consulted for further evaluation. REVIEW OF SYSTEMS: Unobtainable due to patient's mental status. MEDICATIONS: See ambulatory list, reconciled, updated list for further information. PAST MEDICAL HISTORY: Type 1 diabetes mellitus, hypothyroidism, glaucoma. PAST SURGICAL HISTORY: Orthopedic surgery, right hip, 10 fingers repair, knee surgery, rotator cuff surgery, hysterectomy, section, tonsillectomy. FAMILY HISTORY: No significant family history. SOCIAL HISTORY: Per documentation, reviewed. No history of smoking, alcohol, illegal drug use. ALLERGIES:SULFA, IBUPROFEN, THIMEROSAL Vital Signs & Weight: Vital Signs (12 hours) Temp Pulse Resp BP BP Pulse Ox 07/25/20 09:52 146/70 H 07/25/20 09:51 85 146/70 H 07/25/20 07:07 97.8 F 85 18 146/70 H 93 L 07/25/20 03:30 166/70 H 07/25/20 03:23 98.1 F 92 16 166/70 H 97 Weight Admit Weight 2.776 oz Weight 182 lb 4.8 oz Most Recent Monitor Data Heart Rate from ECG 86 NIBP 163/82 NIBP BP-Mean 109 Respiration from ECG 19 SpO2 96 I&O: 07/24/20 07/25/20 07/26/20 06:59 06:59 06:59 Intake Total 1860 1450 Output Total 1450 50 Balance 410 1400 Additional Labs: Accuchecks 07/25/20 07/25/20 07/24/20 12:06 05:45 20:27 POC Glucose 151 H 137 H 176 H 07/24/20 16:30 POC Glucose 220 H Active Medications Generic Name Dose Route Start Last Admin Trade Name Joeyq PRN Reason Stop Dose Admin Clonidine 0.1 mg 07/21/20 04:15 07/25/20 03:30 Clonidine 0.1 Mg Tab PO 0.1 mg BID PRN Administration SBP > 160 use second Cyclosporine 0.4 ml 07/22/20 09:00 07/25/20 09:51 Cyclosporine 0.05% Ophthalmic Droperette EA EYE 0.4 ml BID ERMA Administration Fluoxetine HCl 20 mg 07/21/20 09:00 07/25/20 09:52 Fluoxetine Hcl 10 Mg Cap PO 20 mg DAILY ERMA Administration Gabapentin 100 mg 07/21/20 09:00 07/25/20 09:52 Gabapentin 100 Mg Cap PO 100 mg TID ERMA Administration Heparin Sodium (Porcine) 5,000 units 07/21/20 09:00 07/25/20 09:53 Heparin 5,000 Units/Ml Vial SC 5,000 units Q12HR ERMA Administration Hydralazine HCl 10 mg 07/21/20 04:15 07/25/20 00:21 Hydralazine 20 Mg/Ml Vial SLOW IVP 10 mg Q6H PRN Administration SBP GREATER THAN 160 Insulin Glargine 10 units/ 0.1 mls @ 0 mls/hr 07/24/20 21:00 07/24/20 21:14 Miscellaneous Medication SC 0.1 mls HS ERMA Administration Insulin Glargine 10 units/ 0.1 mls @ 0 mls/hr 07/24/20 09:00 07/25/20 09:53 Miscellaneous Medication SC 0.1 mls QAM ERMA Administration Insulin Human Lispro 0 units 07/22/20 08:01 07/24/20 18:12 Humalog 300 Units/3 Ml Vial SC 4 unit .MODERATE SLIDING SC PRN Administration Moderate Correctional Scale Lisinopril 10 mg 07/23/20 09:00 07/25/20 09:52 Lisinopril 10 Mg Tab PO 10 mg DAILY ERMA Administration Metoprolol Tartrate 25 mg 07/21/20 09:00 07/25/20 09:52 Metoprolol Tartrate 25 Mg Tab PO 25 mg BID ERMA Administration Pantoprazole Sodium 40 mg 07/25/20 09:00 07/25/20 09:52 Pantoprazole 40 Mg Tab PO 40 mg DAILY ERMA Administration Timolol Maleate 1 drop 07/21/20 09:00 07/25/20 09:51 Timolol 0.5% Ophth Soln 5 Ml Bottle R EYE 1 drp DAILY ERMA Administration Trospium 20 mg 07/22/20 09:00 07/25/20 09:52 Trospium 20 Mg Tab PO 20 mg BID ERMA Administration PHYSICAL EXAMINATION: General Appearance: The patient is alert and oriented to person, place, time, and year, however, she is unable to answer simple question and seems fixated on one issue and need to make decisions for myself. She keeps on repeating the same sentence Eye: PERRL, anicteric sclera ENT: normocephalic atraumatic, no oropharyngeal lesions Neck: supple, symmetric, no JVD, no thyromegaly Heart: RRR, no murmur, no gallops, no rubs Respiratory: no wheezes, no rales, no ronchi Gastrointestinal: soft, non-tender, non-distended, normal bowel sounds Extremities: no cyanosis, no clubbing, no edema Skin: normal turgor, no lesions Neurological:: Mental status, the patient is alert and oriented to person, time, and place. However, she is baseline confused and unable to carry a conversation. Cranial nerves; pupils 4 mm, round and reactive to light. Face symmetric. Tongue midline. Moves neck in both direction. Hearing seems to be intact. Cranial nerves 2 through 12 intact. Gait deferred due to patient's safety reason. Motor; muscle, tone, and bulk are normal. Moving all 4 extremities equally and symmetrically. Sensory withdraws to nailbed pressure bilaterally. Gait deferred due to patient's safety reason. DATA REVIEWED: I reviewed the labs. I also reviewed the head CT which was negative for acute intracranial pathology. Lab results: WBC 15.1 thou/uL (4.8-10.8) H 07/21/20 00:26 Hgb 10.5 g/dL (12.0-16.0) L 07/21/20 00:26 Hct 35.6 % (36.0-47.0) L 07/21/20 00:26 MCV 94.5 fL (78.0-98.0) 07/21/20 00:26 Plt Count 219 thou/uL (130-400) 07/21/20 00:26 Neutrophils % 88.4 % (42.0-75.0) H 07/21/20 00:26 ESR Westergren 10 mm/hr (Less than 30) 07/21/20 00:26 Sodium 127 mmol/L (136-145) L 07/21/20 00:26 Potassium 5.7 mmol/L (3.5-5.1) H 07/21/20 00:26 Chloride 92 mmol/L (98-107) L 07/21/20 00:26 Carbon Dioxide 9 mmol/L (23-31) L* 07/21/20 00:26 BUN 36 mg/dL (9.8-20.1) H 07/21/20 00:26 Creatinine 2.00 mg/dL (0.6-1.1) H 07/21/20 00:26 Glucose 956 mg/dL (80-115) H* 07/21/20 00:26 Lactic Acid 7.2 mmol/L (0.5-2.2) H* 07/21/20 03:29 Calcium 8.6 mg/dL (7.8-10.44) 07/21/20 00:26 Total Bilirubin 1.6 mg/dL (0.2-1.2) H 07/21/20 00:26 AST 63 U/L (5-34) H 07/21/20 00:26 ALT 61 U/L (8-55) H 07/21/20 00:26 Alkaline Phosphatase 156 U/L (40-110) H 07/21/20 00:26 Creatine Kinase 170 U/L (29-168) H 07/21/20 00:26 Troponin I 0.016 ng/mL (< 0.028) 07/21/20 00:25 Serum Total Protein 6.5 g/dL (6.0-8.3) 07/21/20 00:26 Albumin 3.3 g/dL (3.4-4.8) L 07/21/20 00:26 Lipase 9 U/L (8-78) 07/21/20 00:26 Urine Ketones Trace mg/dL (Negative) A 07/21/20 00:38 Urine Blood Negative (Negative) 07/21/20 00:38 Urine Nitrite Negative (Negative) 07/21/20 00:38 Ur Leukocyte Esterase Negative Tae/uL (Negative) 07/21/20 00:38 ASSESSMENT AND PLAN: (1) Acute metabolic encephalopathy Code(s): G93.41 - METABOLIC ENCEPHALOPATHY Status: Resolved (2) Transaminitis Code(s): R74.01 - ELEVATION OF LEVELS OF LIVER TRANSAMINASE LEVELS Status: Acute (3) Sepsis with acute organ dysfunction Code(s): A41.9 - SEPSIS, UNSPECIFIED ORGANISM; R65.20 - SEVERE SEPSIS WITHOUT SEPTIC SHOCK Status: Suspected Qualifiers: Sepsis type: sepsis due to unspecified organism Severe sepsis acute organ dysfunction type: acute renal failure Severe sepsis shock status: without septic shock (4) Acute kidney failure Status: Resolved (5) DKA (diabetic ketoacidoses) Code(s): E11.10 - TYPE 2 DIABETES MELLITUS WITH KETOACIDOSIS WITHOUT COMA Status: Resolved Qualifiers: Diabetes mellitus type: type 1 (6) Leukocytosis Code(s): D72.829 - ELEVATED WHITE BLOOD CELL COUNT, UNSPECIFIED Status: Acute (7) Abnormal blood electrolyte level Code(s): E87.8 - OTH DISORDERS OF ELECTROLYTE AND FLUID BALANCE, NEC Status: Acute (8) Metabolic acidosis Code(s): E87.2 - ACIDOSIS Status: Resolved (9) Hypothyroidism Code(s): E03.9 - HYPOTHYROIDISM, UNSPECIFIED Status: Chronic (10) Hypertension Code(s): I10 - ESSENTIAL (PRIMARY) HYPERTENSION Status: Chronic (11) Glaucoma Code(s): H40.9 - UNSPECIFIED GLAUCOMA Status: Chronic (12) Anemia of chronic disease Code(s): D63.8 - ANEMIA IN OTHER CHRONIC DISEASES CLASSIFIED ELSEWHERE Status: Chronic Ms. Colleen Brito is a 65-year-old female who was consulted for altered mental status. The patient does have history of altered mental status, seems multifactorial most likely secondary to metabolic etiology; However, intracranial process cannot be completely ruled out, which includes stroke versus seizures. We will consider MRI of the brain to rule out acute intracranial process and EEG to rule out underlying cortical irritability. Neuro checks every 4 hours. Continue home medications. Continue medical management per primary team. Further recommendations will depend on the results of the testing. Plan discussed in detail with the nursing staff. Thank you for the testing. Job ID: [id number] [facility]
--- NOTE | 2020-07-25 16:25 | PDOC.EEG ---
Neurology EEG Report - Report Report: This EEG was performed using 24 channel Evolver video EEG machine with 24 disc electrodes. This was an extended 2 hours 5 minutes of inpatient video EEG recording. Digital analysis of the EEG was done for spike and seizure detection which revealed no abnormalities. Background: The posterior background rhythm is not observed. Hyperventilation: Not performed. Photic Stimulation: No significant response. Sleep: No stage change is observed. EEG Diagnosis: Occasional irregular theta activity seen during the reording. Absence of posterior background rhythm. Clinical Interpretation: This EEG is consistent with mild generalized nonspecific cerebral dysfunction.
[2020-07-25 17:04] LABS: #Basophils 0.1 thou/uL (0.0-0.2); #Eosinphils 0.1 thou/uL (0.0-0.7); #Lymphocytes 1.2 thou/uL (1.20-3.40); #Monocytes 0.9 thou/uL (0.11-0.59); #Neutrophils 7.7 thou/uL (1.40-6.50); %Basophils 0.8 % (0.0-1.0); %Eosinophils 1.4 % (0.0-10.0); %Lymphocytes 11.9 % (21.0-51.0); %Monocytes 8.9 % (0.0-10.0); %Neutrophils 76.9 % (42.0-75.0); Hemoglobin 11.2 g/dL (12.0-16.0); Mean Corpuscular HGB CONC 32.9 g/dL (32.0-36.0); Mean Corpuscular Hemoglobin 27.9 pg (27.0-31.0); Mean Corpuscular Volume 84.8 fL (78.0-98.0); Mean Platelet Volume 8.5 fL (7.4-10.4); Platelet Count 216 thou/uL (130-400); RBC Distribution Width 12.8 % (11.5-14.5); Red Blood Cell (RBC) Count 4.03 mill/uL (4.20-5.40)
[2020-07-26] MEDS ORDERED: FLUoxetine HCl 20 MG CAP PO SCH (09:00)
[2020-07-26] MEDS: Timolol 0.5% Ophth Soln 5 ml Bottle R EYE SCH (09:54)
[2020-07-26] MEDS: cycloSPORINE 0.05% Ophthalmic Droperette EA EYE SCH (09:55)
[2020-07-26] MEDS: Gabapentin 100 MG CAP PO SCH (09:57)
[2020-07-26] MEDS: Heparin 5,000 UNITS/ML VIAL SC SCH (09:57)
[2020-07-26] MEDS: Lisinopril 10 MG TAB PO SCH (09:57)
[2020-07-26] MEDS: Metoprolol Tartrate 25 MG TAB PO SCH (09:57)
[2020-07-26] MEDS: Trospium 20 MG TAB PO SCH (09:58)
[2020-07-26] MEDS: Insulin Glargine 10 UNITS in Pre-Filled Syringe 1 EACH SC SCH (10:10)
--- NOTE | 2020-07-26 11:26 | PDOC.DS.DS ---
Provider - Provider Date of Admission: 07/21/20 02:43 Date of Discharge: 07/26/20 Admitting Provider: Anoop Brooks MD Consultations: Infectious Disease (Dr. Nails), Neurology (Dr. Conklin), Pulmonary (Dr. Valenzuela) Primary Care Physician: Matthew Mcpherson MD Course - Hospital Course Hospital Course: Discharge diagnosis: 1. Acute metabolic encephalopathy 2. Diabetic ketoacidosis 3. Lactic acidosis 4. Hyper kalemia 5. Hyponatremia Hospital course: 65 year old female with PMH T1DM who presents to ED via EMS for altered mental status. Patient called EMS for "diabetic problem" and when EMS arrived they found patient altered and with an immeasurably high blood sugar. Per family, patients insulin pump has been broken for a day and half. She had recent vertebral osteomyelitis and was to be treated with antibiotics IV as outpatient under the care of Dr Nails, which was vancomycin. Patient also has hypothyro idism, TSH low and free T4 elevated on check here. otherwise, labs in ED very abnormal, see below, suggestive of DKA and dehydration with lactic acidosis, hyperkalemia and hyponatremia, started on insulin and IVF, given cefepime, blood cultures ordered Patient was admitted for diabetes ketoacidosis, she also had metabolic encephalopathy, there was initial concern of sepsis , patient was admitted in IMCU, she was treated with the diabetes ketoacidosis protocol treatment. On admission chest x-ray was normal, CT brain was negative, After DKA protocol her DKA completely resolved, her altered mental status which was attributed to be due to metabolic encephalopathy it was also resolved, speech therapy was consulted for her swallow evaluation and she passed her swallow evaluation. We discontinued all fluid and started on insulin long- acting and short-acting while in hospital. Patient was on insulin pump prior to admission so she will continue her insulin pump, patient needs to follow-up with endocrinology as early as possible to fix the problem. Initially she was given broad-spectrum antibiotic coverage with cefepime and vancomycin for suspected sepsis but that has been completely ruled out, patient does not have any more sepsis, we discontinue antibiotic therapy all cultures remain negative, infectious disease also evaluated this patient. Patient was afebrile while in hospital. Upon discharge patient will continue all her previous medication, for her elevated blood pressure we have started lisinopril. Patient did very well with the PT OT, patient is medically stable for discharge. Addendum: On July 25 patient was seen by neurology service for altered mental status. This was most likely secondary to metabolic etiology. MRI of the brain did not show any acute intracranial process. She also had EEG, which was consistent with mild generalized nonspecific cerebral dysfunction. Her mental status improved, and she is being discharged home on July 26, 2020. Many thanks for allowing me to participate in your patient's care. Please feel free to contact me with any questions or concerns. Discharge destination: Home Total amount of time spent coordinating this discharge: 20 minutes Resuscitation Status: 07/21/20 04:15 Resuscitation Status Routine Resuscitation Status: FULL: Full Resuscitation - Labs Lab Results: 07/25/20 16:52 07/24/20 05:00 Abnormal Lab Results - Last 48 hrs 07/25/20 14:15: Urine Urobilinogen 2.0 A 07/25/20 16:52: RBC 4.03 L, Hgb 11.2 L, Hct 34.2 L, Neutrophils % 76.9 H, Lymphocytes % 11.9 L, Neutrophils # 7.7 H, Monocytes # 0.9 H Microbiology - Entire Visit 07/21/20 01:20 Venous blood - Left Arm Blood Culture - Final NO GROWTH IN 5 DAYS 07/21/20 00:26 Venous blood - Left Arm Blood Culture - Final NO GROWTH IN 5 DAYS 07/21/20 13:49 Venous blood - Left Arm Blood Culture - Preliminary NO GROWTH AT 48 HOURS 07/21/20 13:49 Venous blood - Right Hand Blood Culture - Preliminary NO GROWTH AT 48 HOURS 07/21/20 00:38 Urine mcknight catheter Urine Culture - Final - Physical Exam Vitals: Vital Signs (12 hours) Temp Pulse Resp BP Pulse Ox 07/26/20 07:21 97.6 F 79 18 172/72 H 98 07/26/20 04:03 97.9 F 75 16 158/70 H 98 07/25/20 23:50 97.7 F 88 16 161/77 H 97 Weight Admit Weight 2.776 oz Weight 182 lb Most Recent Monitor Data Heart Rate from ECG 86 NIBP 163/82 NIBP BP-Mean 109 Respiration from ECG 19 SpO2 96 Physical Exam: The patient was seen and examined on the day of discharge. Patient denies chest pain or shortness of breath. Vital signs are stable. S1 and S2 are heard. Lungs are clear to auscultation bilaterally. Plan - Discharge Medications Prescriptions: Insulin Glargine [Lantus Vial] 10 units SC BID-AC #1 vial Lisinopril [Zestril] 10 mg PO DAILY #30 tab Home Medications: Medication Instructions Recorded Confirmed Type FLUoxetine HCl [Prozac] 20 mg PO DAILY 01/22/13 07/21/20 History Gabapentin [Neurontin] 300 mg PO TID 01/22/13 07/21/20 History Levothyroxine Sodium [Levothroid] 200 mcg PO DAILY-AC 01/22/13 07/21/20 History Potassium Chloride [Klor-Con 10] 10 meq PO DAILY 01/22/13 07/21/20 History Trazodone HCl [traZODone HCl] 150 mg PO HS 01/22/13 07/21/20 History Solifenacin Succinate [VESIcare] 10 mg PO DAILY 07/08/17 07/21/20 History Zolpidem Tartrate 10 mg PO HS PRN 07/08/17 07/21/20 History Restasis [Restasis Ophth Drops] 1 drop EA EYE BID 07/09/17 07/21/20 History Estrogens, Conjugated [Premarin 1 gm VAG MWF 05/01/20 07/21/20 History Cream] HumaLOG [HumaLOG Vial] 6 units SQ SEEPHYS 05/01/20 07/21/20 History Montelukast Sodium 1 tab PO DAILY PRN 05/01/20 07/21/20 History Metoprolol Tartrate [Lopressor] 25 mg PO BID #60 tab 05/08/20 07/21/20 Rx traMADol HCl [Ultram] 50 mg PO Q6H PRN #30 tab 05/08/20 07/21/20 Rx Lisinopril [Zestril] 10 mg PO DAILY #30 tab 07/24/20 Rx Insulin Glargine [Lantus Vial] 10 units SC BID-AC #1 vial 07/25/20 Rx Allergies: ibuprofen Allergy (Verified 09/24/19 11:50) Sulfa (Sulfonamide Antibiotics) Allergy (Verified 09/24/19 11:50) thimerosal Allergy (Verified 05/01/20 08:34) THIO Allergy (Unknown, Uncoded 09/24/19 11:50) THIOMERSAL PRESERVATIVE IN CONTACT SOLUTION - Discharge Instructions Discharge Instructions:: MONITOR YOUR BLOOD SUGAR BEFORE EATING AND AT BED TIME, TAKE ALL MEDICATION DIRECTED BY YOUR PHYSICIAN, FOLLOW UP WITH YOUR PRIMARY CARE PHYSICIAN SOON POSSIBLE. Also, follow-up with your yard supervisor as soon as possible. Activity:: Activity as Tolerated Nourishment:: Diabetic Diet Therapies:: Not Applicable Equipment/Supplies:: Not Applicable IV Therapy:: Not Applicable - Follow up Plan Referrals: Matthew Mcpherson MD [Primary Care Provider] - 3 Days (CALL MD'S OFFICE FOR APOINTMENT.) Disposition: HOME Quality - Care Measures CORE MEASURES:: N/A
[2020-07-26] MEDS: HumaLOG 300 UNITS/3 ML VIAL SC PRN (11:28)
[2020-07-26 11:33] VITALS: BP 156/74; TEMP 97.8
--- NOTE | 2020-07-26 14:08 | PDOC.NEUPN ---
- Subjective Encounter Date: 07/26/20 Subjective: Ms. Brito feels much better today and confusion is almost resolved. - Objective Vital Signs & Weight: Vital Signs (12 hours) Temp Pulse Resp BP Pulse Ox 07/26/20 11:11 97.8 F 83 18 156/74 H 96 07/26/20 07:21 97.6 F 79 18 172/72 H 98 07/26/20 04:03 97.9 F 75 16 158/70 H 98 Weight Admit Weight 2.776 oz Weight 182 lb Most Recent Monitor Data Heart Rate from ECG 86 NIBP 163/82 NIBP BP-Mean 109 Respiration from ECG 19 SpO2 96 I&O: 07/25/20 07/26/20 07/27/20 06:59 06:59 06:59 Intake Total 1450 640 300 Output Total 50 400 Balance 1400 240 300 Result Diagrams: 07/25/20 16:52 07/24/20 05:00 Additional Labs: Accuchecks 07/26/20 07/26/20 07/26/20 10:51 09:25 05:47 POC Glucose 190 H 128 H 84 07/25/20 07/25/20 20:48 16:01 POC Glucose 94 116 H Radiology Reviewed by me: Yes EKG Reviewed by me: Yes ROS - Review of Systems Constitutional: denies: fever, chills, sweats, weakness, malaise, other Eyes: denies: pain, vision change, conjunctivae inflammation, eyelid inflammation, redness, other ENT: denies: ear pain, ear discharge, nose pain, nose discharge, nose congestion, mouth pain, mouth swelling, throat pain, throat swelling, other Respiratory: denies: cough, dry, shortness of breath, hemoptysis, SOB with excertion, pleuritic pain, sputum, wheezing, other Cardiovascular: denies: no pertinent history, AFIB, CAD, CHF, HTN, [place], Syncope, Hyperlipidemia, Mitral valve stenosis, Aortic stenosis, Valve insufficiency, Pulmonary hypertension, Other Gastrointestinal: denies: nausea, vomiting, abdominal pain, diarrhea, constipation, melena, hematochezia, other Genitourinary: denies: dysuria, frequency, incontinence, hematuria, retention, other Musculoskeletal: denies: neck pain, shoulder pain, arm pain, back pain, hand pain, leg pain, foot pain, other Skin: denies: rash, lesions, ramon, bruising, other Neurological: denies: weakness, numbness, incoordination, change in speech, confusion, seizures, other - Exam General Appearance: awake alert Eye: PERRL ENT: normocephalic atraumatic Neck: supple Respiratory: CTAB Cardiovascular: RRR Gastrointestinal: soft Extremities: no cyanosis Skin: normal turgor Neurological: CN's grossly intact, normal sensation to touch, no weakness, no focal deficits, no new deficit Musculoskeletal: normal tone, normal strength, no muscle wasting PSYCH: normal affect, normal behavior, A&O x 3 Results - Labs Result Diagrams: 07/25/20 16:52 07/24/20 05:00 Lab results: WBC 10.0 thou/uL (4.8-10.8) 07/25/20 16:52 Hgb 11.2 g/dL (12.0-16.0) L 07/25/20 16:52 Hct 34.2 % (36.0-47.0) L 07/25/20 16:52 MCV 84.8 fL (78.0-98.0) 07/25/20 16:52 Plt Count 216 thou/uL (130-400) 07/25/20 16:52 Neutrophils % 76.9 % (42.0-75.0) H 07/25/20 16:52 Band Neuts % (Manual) 7 % (5-11) 07/22/20 03:31 ESR Westergren 10 mm/hr (Less than 30) 07/21/20 00:26 VBG pCO2 21.8 mmHg (40.0-50.0) L* 07/21/20 00:53 VBG pO2 50.6 mmHg (35.0-45.0) H 07/21/20 00:53 Sodium 134 mmol/L (136-145) L 07/24/20 05:00 Potassium 3.9 mmol/L (3.5-5.1) 07/24/20 05:00 Chloride 105 mmol/L (98-107) 07/24/20 05:00 Carbon Dioxide 23 mmol/L (23-31) 07/24/20 05:00 BUN 16 mg/dL (9.8-20.1) 07/24/20 05:00 Creatinine 0.79 mg/dL (0.6-1.1) 07/24/20 05:00 Glucose 290 mg/dL (80-115) H 07/24/20 05:00 Lactic Acid 7.2 mmol/L (0.5-2.2) H* 07/21/20 03:29 Calcium 8.2 mg/dL (7.8-10.44) 07/24/20 05:00 Total Bilirubin 1.2 mg/dL (0.2-1.2) 07/23/20 07:33 AST 40 U/L (5-34) H 07/23/20 07:33 ALT 39 U/L (8-55) 07/23/20 07:33 Alkaline Phosphatase 150 U/L (40-110) H 07/23/20 07:33 Creatine Kinase 170 U/L (29-168) H 07/21/20 00:26 Troponin I 0.016 ng/mL (< 0.028) 07/21/20 00:25 Serum Total Protein 6.3 g/dL (6.0-8.3) 07/23/20 07:33 Albumin 3.0 g/dL (3.4-4.8) L 07/23/20 07:33 Lipase 9 U/L (8-78) 07/21/20 00:26 Urine Ketones Negative mg/dL (Negative) 07/25/20 14:15 Urine Blood Negative (Negative) 07/25/20 14:15 Urine Nitrite Negative (Negative) 07/25/20 14:15 Ur Leukocyte Esterase Negative Tae/uL (Negative) 07/25/20 14:15 - EKG Interpretation EKG: Normal sinus rhythm - Radiology Interpretation MRI - head Additional Comment: MRI of the brain reviewed which was negative for acute intracranial pathology. PN A/P (1) AMS (altered mental status) Code(s): R41.82 - ALTERED MENTAL STATUS, UNSPECIFIED Status: Acute (2) Hypertension Code(s): I10 - ESSENTIAL (PRIMARY) HYPERTENSION Status: Chronic (3) Hypothyroidism Code(s): E03.9 - HYPOTHYROIDISM, UNSPECIFIED Status: Chronic (4) Sepsis with acute organ dysfunction Code(s): A41.9 - SEPSIS, UNSPECIFIED ORGANISM; R65.20 - SEVERE SEPSIS WITHOUT SEPTIC SHOCK Status: Suspected Qualifiers: Sepsis type: sepsis due to unspecified organism Severe sepsis acute organ dysfunction type: acute renal failure Severe sepsis shock status: without septic shock (5) Acute kidney failure Status: Resolved (6) Acute metabolic encephalopathy Code(s): G93.41 - METABOLIC ENCEPHALOPATHY Status: Resolved (7) DKA (diabetic ketoacidoses) Code(s): E11.10 - TYPE 2 DIABETES MELLITUS WITH KETOACIDOSIS WITHOUT COMA Status: Resolved Qualifiers: Diabetes mellitus type: type 1 (8) Metabolic acidosis Code(s): E87.2 - ACIDOSIS Status: Resolved - Plan Daily Plan: plan discussed w/ family, PT/OT, speech therapy Mrs. Brito is a 65-year-old female with medical history significant for diabetes and Covid last year presented with diabetic ketoacidosis and metabolic acidosis. Neurology was consulted for altered mental status. Altered mental status seems to be multifactorial secondary to metabolic and infectious etiology. Intracranial process seems less likely after reviewing the results of the testing Patient altered mental status is almost resolved and she feels much better today MRI of the brain reviewed which was negative for acute intracranial pathology. EEG reviewed which was negative for seizure activity. Continue neurochecks every 4 hours. Continue home medications. Continue medical management per primary team. No further recommendations from neurology perspective Plan discussed in detail with the patient, patient's family member and the nursing staff.
--- NOTE | 2020-08-12 18:36 | EKG ---
Test Reason : Blood Pressure : / mmHG Vent. Rate : 096 BPM Atrial Rate : 096 BPM P-R Int : 198 ms QRS Dur : 092 ms QT Int : 412 ms P-R-T Axes : 069 102 032 degrees QTc Int : 520 ms Normal sinus rhythm Rightward axis Low voltage QRS Nonspecific ST abnormality Prolonged QT Abnormal ECG Confirmed by SUZI CLEVELAND ([id number]), editor school photograph VANDANA PALMER ([id number]) on 08/12/2020 6:36:06 PM Referred By: Confirmed By:SUZI CLEVELAND
== END 2020-07-26 12:40 | disposition home or self-care (01) | DRG 919 ==
LOC: ERS 23:23 → ERHOLD 07-21 02:43 → IMCU/EMU 07-21 08:59 → 2NO 07-22 22:39 → SJJU 07-23 13:25
PROVIDERS: ADMIT Internal Medicine; ATTEND Internal Medicine
DX: T85.614A Breakdown (mechanical) of insulin pump, initial encounter (principal); E10.10 Type 1 diabetes mellitus with ketoacidosis without coma; G93.41 Metabolic encephalopathy; E87.1 Hypo-osmolality and hyponatremia; E87.6 Hypokalemia; E03.9 Hypothyroidism, unspecified; E86.0 Dehydration; G93.89 Other specified disorders of brain; H40.9 Unspecified glaucoma; F32.9 Major depressive disorder, single episode, unspecified; E87.5 Hyperkalemia; E83.39 Other disorders of phosphorus metabolism; Z96.41 Presence of insulin pump (external) (internal); D63.8 Anemia in other chronic diseases classified elsewhere; Z88.2 Allergy status to sulfonamides; Z88.8 Allergy status to other drugs, medicaments and biological substances; Z88.6 Allergy status to analgesic agent; Z90.710 Acquired absence of both cervix and uterus; Z98.890 Other specified postprocedural states; Z79.4 Long term (current) use of insulin
CPT/HCPCS: 36415; 36416; 51702; 70450; 70551; 71045; 80048; 80053; 80076; 80202; 81003; 82010; 82330; 82550; 82803; 83036; 83605; 83690; 83735; 83930; 84100; 84145; 84439; 84443; 84484; 85025; 85652; 87040; 87086; 87635; 93005; 95712; 95819; 95957; 96365; 96366; 96367; 96375; C9113; J0360; J0692; J1644; J1815; J2001; J2550; J3370; J3475; J3480; J3490; J7050; Q0162; U0003; U0005

== ENCOUNTER 2021-01-22 15:48 | Inpatient (IN) | payer OTHER, BC ==
[2021-01-22] MEDS ORDERED: Dextrose 50% Abboject 50 ML SYRINGE SLOW IVP PRN (20:05)
[2021-01-22] MEDS ORDERED: HumaLOG 300 UNITS/3 ML VIAL SC PRN (20:05)
[2021-01-22] MEDS ORDERED: Ondansetron ODT 4 MG TAB PO PRN (20:05)
[2021-01-22] MEDS ORDERED: Ondansetron PF 4 MG/2 ML Vial IVP PRN (20:05)
[2021-01-22] MEDS ORDERED: Dextrose 5% in Water 1,000 ML IV PRN (20:05)
[2021-01-22] MEDS ORDERED: hydrALAZINE 20 MG/ML VIAL SLOW IVP PRN (20:05)
[2021-01-22] MEDS ORDERED: traMADol HCl 50 MG TAB PO PRN (20:10)
[2021-01-22] MEDS ORDERED: Montelukast Sodium 10 mg Tablet PO PRN (20:14)
[2021-01-22] MEDS ORDERED: Zolpidem Tartrate 5 MG TAB PO PRN (20:18)
[2021-01-22 20:34] LABS: #Eosinphils 0.1 thou/uL (0.0-0.7); #Lymphocytes 1.1 thou/uL (1.20-3.40); #Monocytes 0.9 thou/uL (0.11-0.59); #Neutrophils 12.8 thou/uL (1.40-6.50); %Basophils 0.3 % (0.0-1.0); %Eosinophils 0.5 % (0.0-10.0); %Lymphocytes 7.1 % (21.0-51.0); %Monocytes 5.9 % (0.0-10.0); %Neutrophils 86.3 % (42.0-75.0); Hemoglobin 13.3 g/dL (12.0-16.0); Mean Corpuscular Hemoglobin 30.6 pg (27.0-31.0); Mean Platelet Volume 7.3 fL (7.4-10.4); Platelet Count 204 thou/uL (130-400); Red Blood Cell (RBC) Count 4.34 mill/uL (4.20-5.40); White Blood Cell (WBC) Count 14.8 thou/uL (4.8-10.8)
[2021-01-22 20:41] LABS: Hemoglobin A1c 5.5 % (4.0-6.0)
[2021-01-22 20:46] LABS: INR-International Normal Ratio 1.1; PTT 32.6 sec (22.9-36.1); Prothrombin Time 14.2 sec (12.0-14.7)
[2021-01-22 20:49] LABS: ALT (SGPT) 38 U/L (8-55); AST (SGOT) 40 U/L (5-34); Albumin 4.2 g/dL (3.4-4.8); Alkaline Phosphatase 105 U/L (40-110); Anion Gap 10 mmol/L (10-20); BUN (Urea Nitrogen) 23 mg/dL (9.8-20.1); Bilirubin, Total 1.3 mg/dL (0.2-1.2); Calc. Creatinine Clearance 0 mL/min (70-130); Calcium 9.9 mg/dL (7.8-10.44); Carbon Dioxide 31 mmol/L (23-31); Chloride 100 mmol/L (98-107); Globulin 2.8 g/dL (2.4-3.5); Glucose 149 mg/dL (80-115); Potassium 4.1 mmol/L (3.5-5.1); Sodium 137 mmol/L (136-145)
[2021-01-22] MEDS ORDERED: Metoprolol Tartrate 25 MG TAB PO SCH (21:00)
[2021-01-22] MEDS ORDERED: traMADol HCl 50 MG TAB ONE (22:09)
[2021-01-22] MEDS ORDERED: Morphine 4 MG/ML VIAL ONE (23:17)
[2021-01-23] MEDS: traMADol HCl 50 MG TAB PO SCH ×2 (00:20→05:33)
[2021-01-23] MEDS: Sodium Chloride 0.9% 1,000 ML IV SCH ×2 (00:22→16:56)
[2021-01-23] MEDS: Senokot S 8.6-50 MG TAB PO SCH ×2 (00:22→10:47)
[2021-01-23] MEDS: Acetaminophen 325 MG TAB PO SCH ×3 (00:22→16:56)
[2021-01-23] MEDS: Famotidine 20 MG TAB PO SCH ×3 (00:23→21:22)
[2021-01-23] MEDS: traZODone HCl 150 MG TAB PO SCH ×2 (00:31→20:05)
[2021-01-23 00:55] VITALS: BMI 23.6
[2021-01-23] MEDS: Morphine 2 MG/ML VIAL SLOW IVP PRN ×2 (01:44→07:43)
[2021-01-23] MEDS: Cyclobenzaprine 10 MG TAB PO PRN (01:44)
[2021-01-23 05:30] LABS: #Eosinphils 0.3 thou/uL (0.0-0.7); #Lymphocytes 1.4 thou/uL (1.20-3.40); #Monocytes 0.5 thou/uL (0.11-0.59); #Neutrophils 8.7 thou/uL (1.40-6.50); %Basophils 0.2 % (0.0-1.0); %Eosinophils 2.7 % (0.0-10.0); %Lymphocytes 12.5 % (21.0-51.0); %Monocytes 4.9 % (0.0-10.0); %Neutrophils 79.6 % (42.0-75.0); Hemoglobin 12.1 g/dL (12.0-16.0); Mean Corpuscular Hemoglobin 30.2 pg (27.0-31.0); Mean Corpuscular Volume 91.5 fL (78.0-98.0); Mean Platelet Volume 7.9 fL (7.4-10.4); Platelet Count 167 thou/uL (130-400); RBC Distribution Width 10.9 % (11.5-14.5); Red Blood Cell (RBC) Count 4.03 mill/uL (4.20-5.40)
[2021-01-23] MEDS: Levothyroxine Sodium 100 MCG TAB PO SCH (05:33)
[2021-01-23 05:37] LABS: INR-International Normal Ratio 1.1; Prothrombin Time 14.6 sec (12.0-14.7)
[2021-01-23 05:52] LABS: Anion Gap 12 mmol/L (10-20); BUN (Urea Nitrogen) 20 mg/dL (9.8-20.1); Calc. Creatinine Clearance 71 mL/min (70-130); Calcium 9.1 mg/dL (7.8-10.44); Carbon Dioxide 29 mmol/L (23-31); Chloride 100 mmol/L (98-107); Glucose 122 mg/dL (80-115); Magnesium 1.8 mg/dL (1.6-2.6); Potassium 3.6 mmol/L (3.5-5.1); Sodium 137 mmol/L (136-145)
[2021-01-23 05:56] LABS: Phosphorus 3.5 mg/dL (2.3-4.7)
[2021-01-23] MEDS ORDERED: Potassium Phosphate 30 MMOL, Magnesium Sulfate 3 GM in Sodium Chloride 0.9% 250 ML 250 ML IVPB SCH (06:15)
[2021-01-23] MEDS ORDERED: Magnesium Sulfate 3 GM in Sodium Chloride 0.9% 100 ML IV SCH (06:15)
[2021-01-23] MEDS ORDERED: Milk Of Magnesia 30 ML UDCUP PO PRN (07:09)
[2021-01-23] MEDS ORDERED: Bisacodyl 10 MG SUPP PR PRN (07:09)
[2021-01-23] MEDS ORDERED: Fleet Enema 133 ML BOT PR PRN (07:09)
[2021-01-23] MEDS ORDERED: Fentanyl 100 MCG/2 ML VIAL SLOW IVP PRN (07:09)
[2021-01-23] MEDS ORDERED: CEFAZOLIN 2 GM in Premix Bag 1 BAG IVPB SCH (07:15)
[2021-01-23] MEDS: Lantus 1000 UNITS/10 ML VIAL SC SCH ×2 (08:53→16:57)
[2021-01-23] MEDS: FLUoxetine HCl 20 MG CAP PO SCH (10:46)
[2021-01-23] MEDS: Polyethylene Glycol 3350 17 GM Packet PO SCH (10:47)
[2021-01-23] MEDS: Potassium Chloride 10 MEQ TAB PO SCH (10:47)
[2021-01-23] MEDS ORDERED: Vancomycin 1.5 GRAM/300 ML BAG 1.5 GM in Premix Bag 1 BAG IVPB SCH (12:00)
[2021-01-23] MEDS ORDERED: TIMOLOL 0.5% OPHTH EA EYE SCH (12:45)
[2021-01-23] MEDS ORDERED: HYDROcodone/Acetaminophen 10/325 mg Tablet PO PRN ×2 (13:23)
[2021-01-23] MEDS ORDERED: Acetaminophen 325 MG TAB PO PRN (13:23)
[2021-01-23] MEDS ORDERED: Ondansetron PF 4 MG/2 ML Vial IVP PRN ×2 (13:23→17:17)
[2021-01-23] MEDS ORDERED: diphenhydrAMINE 25 MG CAP PO PRN ×2 (13:23→17:17)
[2021-01-23] MEDS ORDERED: Zolpidem Tartrate 5 MG TAB PO PRN ×2 (13:23→17:17)
[2021-01-23] MEDS ORDERED: Promethazine HCl 25 MG/ML VIAL IM PRN ×3 (13:23→17:17)
[2021-01-23] MEDS ORDERED: traMADol HCl 50 MG TAB PO PRN (13:26)
[2021-01-23] MEDS ORDERED: HumaLOG 300 UNITS/3 ML VIAL IVP SCH (13:30)
[2021-01-23] MEDS ORDERED: Fentanyl 100 MCG/2 ML VIAL ONE ×3 (13:37→16:42)
[2021-01-23] MEDS ORDERED: Rocuronium Bromide 10 MG/ML (10ML VIAL) ONE (14:01)
[2021-01-23] MEDS ORDERED: PROPOFOL 200 MG/20 ML VIAL ONE (14:01)
[2021-01-23] MEDS ORDERED: Lidocaine 1% PF 5 ML VIAL ONE (14:01)
[2021-01-23] MEDS ORDERED: PHENYLEPHRINE-NS 100 MCG/ML 10 ML SYRINGE ONE (14:01)
[2021-01-23] MEDS ORDERED: Ondansetron PF 4 MG/2 ML Vial ONE (14:01)
[2021-01-23] MEDS ORDERED: Tranexamic Acid 1,000 MG/10 ML VIAL ONE (14:13)
[2021-01-23] MEDS ORDERED: SUGAMMADEX SODIUM 200 MG/2 ML VIAL ONE (15:18)
[2021-01-23] MEDS ORDERED: Benzonatate 100 MG CAP PO PRN (16:09)
[2021-01-23] MEDS ORDERED: Promethazine HCl 25 MG/ML VIAL IVPB PRN (16:11)
[2021-01-23] MEDS ORDERED: Ondansetron HCl/PF 4 MG/2 ML Vial IVP PRN (16:11)
[2021-01-23] MEDS: Ketorolac Tromethamine 30 MG/ML VIAL IVP SCH ×2 (16:57→21:21)
[2021-01-23] MEDS ORDERED: Naloxone HCl 0.4 mg/ml Vial IV PRN (17:17)
[2021-01-23] MEDS ORDERED: fentaNYL Citrate/PF 2,000 MCG in Sodium Chloride 0.9% 60 ML IV PRN (17:17)
[2021-01-23] MEDS ORDERED: diphenhydrAMINE 50 MG/ML VIAL IM PRN (17:17)
[2021-01-23] MEDS ORDERED: diphenhydrAMINE 50 MG/ML VIAL IVP PRN (17:17)
[2021-01-23] MEDS ORDERED: Ibuprofen 200 MG TAB PO PRN (17:23)
[2021-01-23] MEDS ORDERED: Communication Order-Pharmacy FS SCH (17:30)
[2021-01-23] MEDS: Acetaminophen 500 MG TAB PO SCH ×2 (19:15→23:59)
[2021-01-23] MEDS: Trospium 20 MG TAB PO SCH (20:05)
[2021-01-23] MEDS ORDERED: NETARSUDIL MESYLATE EA EYE SCH (21:00)
[2021-01-23] MEDS ORDERED: RESTASIS OPTH EA EYE SCH (21:00)
[2021-01-23] MEDS ORDERED: cycloSPORINE 0.05% Ophthalmic Droperette EA EYE SCH (21:00)
[2021-01-23] MEDS ORDERED: Loratadine 10 MG TAB PO SCH (21:00)
[2021-01-23] MEDS: CEFAZOLIN 2 GM in Premix Bag 1 BAG IVPB SCH (21:21)
[2021-01-23] MEDS: RHOPRESSA 0.02% EA EYE SCH (22:20)
[2021-01-24] MEDS: Sodium Chloride 0.9% 1,000 ML IV SCH (04:05)
[2021-01-24] MEDS: CEFAZOLIN 2 GM in Premix Bag 1 BAG IVPB SCH (05:30)
[2021-01-24] MEDS: Ketorolac Tromethamine 30 MG/ML VIAL IVP SCH (05:30)
[2021-01-24] MEDS: Acetaminophen 500 MG TAB PO SCH ×2 (06:13→13:47)
[2021-01-24] MEDS: Levothyroxine Sodium 100 MCG TAB PO SCH (06:14)
[2021-01-24 06:22] LABS: Hemoglobin 10.6 g/dL (12.0-16.0)
[2021-01-24 07:25] LABS: Mean Corpuscular HGB CONC 32.4 g/dL (32.0-36.0); Mean Corpuscular Hemoglobin 30.1 pg (27.0-31.0); Mean Corpuscular Volume 92.8 fL (78.0-98.0); Mean Platelet Volume 8.4 fL (7.4-10.4); Platelet Count 155 thou/uL (130-400); RBC Distribution Width 11.1 % (11.5-14.5); Red Blood Cell (RBC) Count 3.54 mill/uL (4.20-5.40); White Blood Cell (WBC) Count 12.4 thou/uL (4.8-10.8)
[2021-01-24] MEDS: Acetaminophen 325 MG TAB PO SCH ×3 (07:42→20:26)
[2021-01-24] MEDS: traMADol HCl 50 MG TAB PO SCH ×2 (07:42→20:26)
[2021-01-24] MEDS: Senokot S 8.6-50 MG TAB PO SCH ×2 (08:48→20:25)
[2021-01-24] MEDS: Polyethylene Glycol 3350 17 GM Packet PO SCH (08:48)
[2021-01-24] MEDS: Multivitamin W/ Minerals 1 TAB PO SCH (08:50)
[2021-01-24] MEDS: FLUoxetine HCl 20 MG CAP PO SCH (08:50)
[2021-01-24] MEDS: Ferrous Gluconate 324 MG TAB PO SCH ×2 (08:50→20:25)
[2021-01-24] MEDS: Potassium Chloride 10 MEQ TAB PO SCH (08:50)
[2021-01-24] MEDS: Famotidine 20 MG TAB PO SCH ×2 (08:51→20:25)
[2021-01-24] MEDS: Lantus 1000 UNITS/10 ML VIAL SC SCH ×2 (08:55→18:19)
[2021-01-24] MEDS ORDERED: Ibuprofen 600 MG TAB PO PRN (09:00)
[2021-01-24] MEDS ORDERED: Sodium Chloride 0.9% 500 ML IV SCH (09:00)
[2021-01-24] MEDS: Vancomycin 1 GM in Premix Bag 1 BAG IVPB SCH ×2 (09:48→21:36)
[2021-01-24] MEDS ORDERED: traMADol HCl 50 MG TAB PO PRN (11:07)
[2021-01-24] MEDS ORDERED: HYDROcodone/Acetaminophen 10/325 mg Tablet PO PRN (11:07)
[2021-01-24] MEDS ORDERED: Fentanyl 100 MCG/2 ML VIAL SLOW IVP PRN (11:08)
[2021-01-24] MEDS: HYDROcodone/Acetaminophen 10/325 mg Tablet PO PRN ×2 (12:19→17:37)
[2021-01-24] MEDS: Trospium 20 MG TAB PO SCH ×2 (13:43→20:26)
[2021-01-24] MEDS: Cyclobenzaprine 10 MG TAB PO PRN (15:04)
[2021-01-24] MEDS: Gabapentin 100 MG CAP PO SCH ×2 (15:08→20:33)
[2021-01-24] MEDS: RHOPRESSA 0.02% EA EYE SCH (20:23)
[2021-01-24] MEDS: traZODone HCl 150 MG TAB PO SCH (20:25)
[2021-01-25] MEDS: Acetaminophen 325 MG TAB PO SCH ×2 (02:13→10:03)
[2021-01-25] MEDS: traMADol HCl 50 MG TAB PO SCH ×2 (02:13→10:04)
[2021-01-25] MEDS ORDERED: Levothyroxine Sodium 125 MCG TAB PO SCH (06:00)
[2021-01-25] MEDS: Trospium 20 MG TAB PO SCH (09:56)
[2021-01-25] MEDS: Multivitamin W/ Minerals 1 TAB PO SCH (09:57)
[2021-01-25] MEDS: Ferrous Gluconate 324 MG TAB PO SCH (09:57)
[2021-01-25] MEDS: Potassium Chloride 10 MEQ TAB PO SCH (09:57)
[2021-01-25] MEDS: Senokot S 8.6-50 MG TAB PO SCH (09:57)
[2021-01-25] MEDS: FLUoxetine HCl 20 MG CAP PO SCH (09:57)
[2021-01-25] MEDS: Polyethylene Glycol 3350 17 GM Packet PO SCH (09:58)
[2021-01-25] MEDS: Lantus 1000 UNITS/10 ML VIAL SC SCH (10:04)
[2021-01-25] MEDS: Gabapentin 100 MG CAP PO SCH (10:04)
[2021-01-25] MEDS: Famotidine 20 MG TAB PO SCH (10:04)
[2021-01-25 11:29] VITALS: BP 132/64; TEMP 98.2
== END 2021-01-25 12:05 | disposition home or self-care (01) | DRG 522 ==
LOC: ERS 15:48 → SURG A 20:10
PROVIDERS: ADMIT Surgery; ATTEND Surgery
PROC: 0SRB0J9 Replacement of Left Hip Joint with Synthetic Substitute, Cemented, Open Approach (ICD-10-PCS; principal; 2021-01-23)
DX: S72.012A Unspecified intracapsular fracture of left femur, initial encounter for closed fracture (principal); N17.9 Acute kidney failure, unspecified; I10 Essential (primary) hypertension; E03.9 Hypothyroidism, unspecified; W19.XXXA Unspecified fall, initial encounter; E10.9 Type 1 diabetes mellitus without complications; Z90.710 Acquired absence of both cervix and uterus; Z90.49 Acquired absence of other specified parts of digestive tract; Z88.2 Allergy status to sulfonamides; Z88.8 Allergy status to other drugs, medicaments and biological substances; Y92.481 Parking lot as the place of occurrence of the external cause
CPT/HCPCS: 36415; 36416; 71045; 72170; 80048; 80053; 82533; 83036; 83735; 83880; 84100; 85025; 85027; 85610; 85730; 93005; 93010; 96374; J0690; J1885; J2270; J2405; J2704; J3010; J3370; J3475; J7050

== ENCOUNTER 2022-12-17 00:02 | Inpatient (IN) | payer MEDICARE, BC ==
[2022-12-17] MEDS ORDERED: fentaNYL 50 mcg/mL 1 mL Vial ONE ×5 (00:48→14:38)
[2022-12-17 00:52] LABS: #Eosinphils 0.1 thou/uL (0.0-0.7); #Monocytes 0.4 thou/uL (0.11-0.59); #Neutrophils 8.8 thou/uL (1.40-6.50); %Basophils 0.2 % (0.0-1.0); %Eosinophils 0.6 % (0.0-10.0); %Lymphocytes 8.7 % (21.0-51.0); %Monocytes 4.3 % (0.0-10.0); %Neutrophils 85.6 % (42.0-75.0); Hemoglobin 13.7 g/dL (12.0-16.0); Mean Corpuscular Hemoglobin 28.9 pg (27.0-31.0); Mean Platelet Volume 9.1 fL (7.4-10.4); Platelet Count 225 10x3/uL (130-400); RBC Distribution Width 11.6 % (11.5-14.5); Red Blood Cell (RBC) Count 4.74 mill/uL (4.20-5.40); White Blood Cell (WBC) Count 10.3 10x3/uL (4.8-10.8)
[2022-12-17 01:06] LABS: INR-International Normal Ratio 1.1; PTT 36.9 sec (22.9-36.1); Prothrombin Time 14.4 sec (12.0-14.7)
[2022-12-17 01:15] LABS: ALT (SGPT) 26 U/L (8-55); AST (SGOT) 37 U/L (5-34); Albumin 4.3 g/dL (3.4-4.8); Alkaline Phosphatase 93 U/L (40-110); Anion Gap 15 mmol/L (10-20); BUN (Urea Nitrogen) 23 mg/dL (9.8-20.1); Bilirubin, Total 1.3 mg/dL (0.2-1.2); CK (CPK) 126 U/L (29-168); Calc. Creatinine Clearance 0 mL/min (70-130); Calcium 9.9 mg/dL (7.8-10.44); Carbon Dioxide 27 mmol/L (23-31); Chloride 96 mmol/L (98-107); Estimated GFR 63; Globulin 2.9 g/dL (2.4-3.5); Glucose 168 mg/dL (80-115); Potassium 4.2 mmol/L (3.5-5.1); Protein, Total 7.2 g/dL (5.8-8.1); Sodium 134 mmol/L (136-145)
[2022-12-17] MEDS ORDERED: Ondansetron ODT 4 MG TAB PO PRN (01:39)
[2022-12-17] MEDS ORDERED: Dextrose 50% Abboject 50 ML SYRINGE SLOW IVP PRN (01:39)
[2022-12-17] MEDS ORDERED: Promethazine HCl 25 MG/ML VIAL IM PRN (01:39)
[2022-12-17] MEDS ORDERED: Morphine 2 MG/ML VIAL SLOW IVP PRN (01:39)
[2022-12-17] MEDS ORDERED: Ondansetron PF 4 MG/2 ML Vial IVP PRN (01:39)
[2022-12-17] MEDS ORDERED: TETANUS, DIPHTHERIA TOX,ADULT (TDVAX) 0.5 ML VIAL IM ONE (01:39)
[2022-12-17] MEDS ORDERED: Dextrose 5% in Water 1,000 ML IV PRN (01:39)
[2022-12-17] MEDS ORDERED: Glucagon 1 MG/ML KIT IM PRN (01:39)
[2022-12-17] MEDS ORDERED: traMADol HCl 50 MG TAB PO PRN (01:42)
[2022-12-17] MEDS ORDERED: Sodium Chloride 0.9% 1,000 ML IV SCH (01:45)
[2022-12-17] MEDS ORDERED: Boostrix 0.5 ML (Tdap) VIAL (>/=7 yrs of age) ONE (04:56)
[2022-12-17] MEDS ORDERED: HumaLOG 300 UNITS/3 ML VIAL ONE (04:56)
[2022-12-17] MEDS ORDERED: traMADol HCl 50 MG TAB ONE (04:56)
[2022-12-17] MEDS: traMADol HCl 50 MG TAB PO SCH ×2 (05:03→20:06)
[2022-12-17 05:04] LABS: Troponin I Less than 0.010 ng/mL (< 0.028)
[2022-12-17] MEDS: HumaLOG 300 UNITS/3 ML VIAL SC PRN (05:19)
[2022-12-17] MEDS: Acetaminophen 325 MG TAB PO SCH ×4 (07:15→20:38)
[2022-12-17] MEDS ORDERED: Acetaminophen 325 MG TAB ONE (07:17)
[2022-12-17] MEDS ORDERED: CEFAZOLIN 2 GM in Sodium Chloride 0.9% 100 ML IVPB SCH (07:30)
[2022-12-17 07:59] LABS: Troponin I Less than 0.010 ng/mL (< 0.028)
[2022-12-17] MEDS ORDERED: Morphine 2 MG/ML VIAL ONE (09:24)
[2022-12-17] MEDS ORDERED: Famotidine 20 MG TAB ONE (11:25)
[2022-12-17] MEDS ORDERED: Ascorbic Acid 500 mg Chewable Tablet ONE (11:25)
[2022-12-17] MEDS: Ascorbic Acid 500 mg Chewable Tablet PO SCH (11:35)
[2022-12-17] MEDS: Famotidine 20 MG TAB PO SCH ×2 (11:35→20:28)
[2022-12-17] MEDS: Ferrous Sulfate 325 MG TAB PO SCH ×2 (11:35→20:12)
[2022-12-17] MEDS ORDERED: Midazolam HCl 2 mg/2 ml Vial ONE ×2 (13:40→14:17)
[2022-12-17] MEDS ORDERED: Sodium Chloride 0.9% 100 ML ONE (14:09)
[2022-12-17] MEDS ORDERED: CEFAZOLIN 2 GM VIAL ONE (14:09)
[2022-12-17] MEDS ORDERED: ePHEDrine Sulfate 50 MG/10 ML VIAL ONE (14:26)
[2022-12-17] MEDS ORDERED: Lidocaine 1% PF 5 ML VIAL ONE (14:26)
[2022-12-17] MEDS ORDERED: PROPOFOL 200 MG/20 ML VIAL ONE (14:26)
[2022-12-17] MEDS ORDERED: HYDROmorphone 2 MG/ML VIAL SLOW IVP PRN (14:50)
[2022-12-17] MEDS ORDERED: Ondansetron HCl/PF 4 MG/2 ML Vial IVP PRN (14:50)
[2022-12-17] MEDS ORDERED: HYDROmorphone 2 MG/ML VIAL ONE (15:35)
[2022-12-17] MEDS ORDERED: HYDROmorphone 0.5 MG/0.5 ML SYRINGE ONE (16:05)
[2022-12-17] MEDS ORDERED: Fentanyl 250 MCG/5 ML VIAL ONE (16:07)
[2022-12-17] MEDS ORDERED: EPINEPHrine 1 MG/ML AMP ONE (16:37)
[2022-12-17] MEDS ORDERED: NOREPINEPHRINE 8 MG/250 ML-D5W 0 ML ONE (19:28)
[2022-12-17] MEDS ORDERED: Naloxone HCl 0.4 mg/ml Vial ONE (19:30)
[2022-12-17 19:52] LABS: #Monocytes 0.9 thou/uL (0.11-0.59); #Neutrophils 13.3 thou/uL (1.40-6.50); %Basophils 0.3 % (0.0-1.0); %Eosinophils 0.1 % (0.0-10.0); %Lymphocytes 6.9 % (21.0-51.0); %Monocytes 5.5 % (0.0-10.0); %Neutrophils 86.1 % (42.0-75.0); Mean Corpuscular Hemoglobin 29.3 pg (27.0-31.0); Mean Platelet Volume 9.4 fL (7.4-10.4); Platelet Count 202 10x3/uL (130-400); Red Blood Cell (RBC) Count 3.55 mill/uL (4.20-5.40); White Blood Cell (WBC) Count 15.4 10x3/uL (4.8-10.8)
[2022-12-17 20:00] LABS: Hemoglobin 10.4 g/dL (12.0-16.0)
[2022-12-17 20:01] LABS: Mean Corpuscular Volume 88.7 fl (78.0-98.0)
[2022-12-17 20:28] LABS: Anion Gap 17 mmol/L (10-20); BUN (Urea Nitrogen) 34 mg/dL (9.8-20.1); Calc. Creatinine Clearance 0 mL/min (70-130); Calcium 8.8 mg/dL (7.8-10.44); Carbon Dioxide 21 mmol/L (23-31); Chloride 99 mmol/L (98-107); Estimated GFR 34; Glucose 281 mg/dL (80-115); Potassium 5.2 mmol/L (3.5-5.1); Sodium 132 mmol/L (136-145)
[2022-12-17] MEDS: CEFAZOLIN 2 GM in Sodium Chloride 0.9% 100 ML IVPB SCH (20:28)
[2022-12-18] MEDS: Acetaminophen 325 MG TAB PO SCH ×4 (00:17→19:11)
[2022-12-18 01:04] VITALS: BMI 27.0
[2022-12-18 05:29] LABS: Anion Gap 24 mmol/L (10-20); BUN (Urea Nitrogen) 49 mg/dL (9.8-20.1); Calc. Creatinine Clearance 30 mL/min (70-130); Calcium 8.4 mg/dL (7.8-10.44); Carbon Dioxide 13 mmol/L (23-31); Chloride 101 mmol/L (98-107); Estimated GFR 26; Potassium 4.6 mmol/L (3.5-5.1); Sodium 133 mmol/L (136-145)
[2022-12-18 05:33] LABS: Glucose 400 mg/dL (80-115)
[2022-12-18] MEDS: HumaLOG 300 UNITS/3 ML VIAL SC PRN ×3 (05:50→16:18)
[2022-12-18] MEDS: CEFAZOLIN 2 GM in Sodium Chloride 0.9% 100 ML IVPB SCH (05:52)
[2022-12-18] MEDS ORDERED: Lactated Ringer's 500 ML IV SCH (09:45)
[2022-12-18 10:21] LABS: #Monocytes 1.5 thou/uL (0.11-0.59); #Neutrophils 20.6 thou/uL (1.40-6.50); %Basophils 0.2 % (0.0-1.0); %Lymphocytes 6.8 % (21.0-51.0); %Monocytes 6.1 % (0.0-10.0); %Neutrophils 86.4 % (42.0-75.0); Hemoglobin 9.4 g/dL (12.0-16.0); Mean Corpuscular HGB CONC 33.1 g/dL (32.0-36.0); Mean Corpuscular Hemoglobin 29.9 pg (27.0-31.0); Mean Corpuscular Volume 90.4 fl (78.0-98.0); Mean Platelet Volume 9.3 fL (7.4-10.4); Platelet Count 189 10x3/uL (130-400); RBC Distribution Width 12.7 % (11.5-14.5); Red Blood Cell (RBC) Count 3.14 mill/uL (4.20-5.40); White Blood Cell (WBC) Count 23.8 10x3/uL (4.8-10.8)
[2022-12-18] MEDS: Lactated Ringer's 1,000 ML IV SCH ×3 (11:20→23:52)
[2022-12-18] MEDS: Ferrous Sulfate 325 MG TAB PO SCH ×2 (11:42→16:23)
[2022-12-18] MEDS: Ascorbic Acid 500 mg Chewable Tablet PO SCH (11:42)
[2022-12-18] MEDS ORDERED: Insulin Glargine 30 UNITS/0.3 ML VIAL SC SCH ×2 (12:49→18:52)
[2022-12-18 15:00] LABS: #Monocytes 1.9 thou/uL (0.11-0.59); #Neutrophils 19.4 thou/uL (1.40-6.50); %Basophils 0.2 % (0.0-1.0); %Eosinophils 0.2 % (0.0-10.0); %Lymphocytes 6.7 % (21.0-51.0); %Monocytes 8.1 % (0.0-10.0); %Neutrophils 84.2 % (42.0-75.0); Hemoglobin 9.2 g/dL (12.0-16.0); Mean Corpuscular HGB CONC 33.7 g/dL (32.0-36.0); Mean Corpuscular Hemoglobin 29.8 pg (27.0-31.0); Mean Corpuscular Volume 88.3 fl (78.0-98.0); Mean Platelet Volume 9.7 fL (7.4-10.4); Platelet Count 189 10x3/uL (130-400); RBC Distribution Width 12.7 % (11.5-14.5); Red Blood Cell (RBC) Count 3.09 mill/uL (4.20-5.40)
[2022-12-18 16:09] LABS: Anion Gap 19 mmol/L (10-20); BUN (Urea Nitrogen) 61 mg/dL (9.8-20.1); Calc. Creatinine Clearance 22 mL/min (70-130); Calcium 8.3 mg/dL (7.8-10.44); Carbon Dioxide 15 mmol/L (23-31); Chloride 105 mmol/L (98-107); Estimated GFR 18; Glucose 327 mg/dL (80-115); Potassium 4.2 mmol/L (3.5-5.1); Sodium 135 mmol/L (136-145)
[2022-12-18 20:25] LABS: Anion Gap 14 mmol/L (10-20); BUN (Urea Nitrogen) 70 mg/dL (9.8-20.1); Calc. Creatinine Clearance 20 mL/min (70-130); Calcium 8.5 mg/dL (7.8-10.44); Carbon Dioxide 21 mmol/L (23-31); Chloride 103 mmol/L (98-107); Estimated GFR 16; Glucose 336 mg/dL (80-115); Potassium 4.4 mmol/L (3.5-5.1); Sodium 134 mmol/L (136-145)
[2022-12-18] MEDS: Famotidine 20 MG TAB PO SCH (21:14)
[2022-12-18 22:22] LABS: Bacteria/HPF 4+ HPF (None Seen); Bilirubin Negative (Negative); Blood, Urine 1+ (Negative); Clarity Turbid (Clear); Glucose, Urine (Dipstick) Normal (Negative); Ketone, Urine 10 mg/dL (Negative); Leukocyte 500 Leu/uL (Negative); Nitrite Negative (Negative); Protein, Urine (Dipstick) 20 mg/dL (Neg-Trace); Renal Epithelial 0-3 HPF (None Seen); Specific Gravity, Urine 1.018 (1.002-1.036); Squamous Epithelial 0-3 HPF (0-3); Urobilinogen Normal mg/dL (Less than 2); WBC/HPF Greater than 50 HPF (0-3)
[2022-12-19] MEDS: Sodium Chloride 0.9% 1,000 ML IV SCH ×3 (00:17→18:37)
[2022-12-19] MEDS: Acetaminophen 325 MG TAB PO SCH ×4 (00:18→18:38)
[2022-12-19 00:34] LABS: Creatinine, Urine 99.91 mg/dL (47-110)
[2022-12-19] MEDS: HumaLOG 300 UNITS/3 ML VIAL SC PRN ×4 (02:12→21:24)
[2022-12-19] MEDS: cefTRIAXone\\ROCEPHIN 2 GM in Sodium Chloride 0.9% 100 ML IVPB SCH (02:12)
[2022-12-19 05:44] LABS: #Neutrophils 16.2 thou/uL (1.40-6.50); %Basophils 0.2 % (0.0-1.0); %Lymphocytes 7.2 % (21.0-51.0); %Monocytes 10.1 % (0.0-10.0); %Neutrophils 81.8 % (42.0-75.0); Hemoglobin 9.2 g/dL (12.0-16.0); Mean Corpuscular Hemoglobin 28.8 pg (27.0-31.0); Mean Corpuscular Volume 87.5 fl (78.0-98.0); Mean Platelet Volume 9.5 fL (7.4-10.4); Platelet Count 174 10x3/uL (130-400); RBC Distribution Width 12.8 % (11.5-14.5); Red Blood Cell (RBC) Count 3.19 mill/uL (4.20-5.40); White Blood Cell (WBC) Count 19.8 10x3/uL (4.8-10.8)
[2022-12-19 06:07] LABS: Anion Gap 12 mmol/L (10-20); BUN (Urea Nitrogen) 71 mg/dL (9.8-20.1); Calc. Creatinine Clearance 23 mL/min (70-130); Carbon Dioxide 21 mmol/L (23-31); Chloride 104 mmol/L (98-107); Potassium 4.1 mmol/L (3.5-5.1); Sodium 133 mmol/L (136-145)
[2022-12-19 06:08] LABS: Calcium 8.3 mg/dL (7.8-10.44); Estimated GFR 19; Glucose 265 mg/dL (80-115)
[2022-12-19] MEDS: Insulin Glargine 30 UNITS/0.3 ML VIAL SC SCH (09:43)
[2022-12-19] MEDS: Heparin 5,000 UNITS/ML VIAL SC SCH ×2 (09:45→21:24)
[2022-12-19 13:02] LABS: Anion Gap 12 mmol/L (10-20); BUN (Urea Nitrogen) 70 mg/dL (9.8-20.1); Calc. Creatinine Clearance 26 mL/min (70-130); Calcium 8.3 mg/dL (7.8-10.44); Carbon Dioxide 22 mmol/L (23-31); Chloride 109 mmol/L (98-107); Estimated GFR 22; Glucose 145 mg/dL (80-115); Potassium 3.9 mmol/L (3.5-5.1); Sodium 139 mmol/L (136-145)
[2022-12-19 13:54] LABS: Lactic Acid 1.3 mmol/L (0.5-2.2)
[2022-12-19] MEDS: Ferrous Sulfate 325 MG TAB PO SCH ×2 (18:23→18:38)
[2022-12-19] MEDS: Ascorbic Acid 500 mg Chewable Tablet PO SCH (18:37)
[2022-12-19] MEDS: Famotidine 20 MG TAB PO SCH (21:25)
[2022-12-19] MEDS: traMADol HCl 50 MG TAB PO PRN (21:31)
[2022-12-20] MEDS: Acetaminophen 325 MG TAB PO SCH ×5 (00:17→23:06)
[2022-12-20] MEDS: Sodium Chloride 0.9% 1,000 ML IV SCH (00:46)
[2022-12-20] MEDS: cefTRIAXone\\ROCEPHIN 2 GM in Sodium Chloride 0.9% 100 ML IVPB SCH (00:46)
[2022-12-20] MEDS: HumaLOG 300 UNITS/3 ML VIAL SC PRN ×5 (00:48→22:01)
[2022-12-20 05:29] LABS: #Eosinphils 0.2 thou/uL (0.0-0.7); #Monocytes 0.9 thou/uL (0.11-0.59); %Basophils 0.3 % (0.0-1.0); %Eosinophils 1.6 % (0.0-10.0); %Lymphocytes 11.9 % (21.0-51.0); %Monocytes 8.4 % (0.0-10.0); %Neutrophils 77.5 % (42.0-75.0); Mean Corpuscular HGB CONC 32.6 g/dL (32.0-36.0); Mean Corpuscular Hemoglobin 28.8 pg (27.0-31.0); Mean Corpuscular Volume 88.2 fl (78.0-98.0); Mean Platelet Volume 9.4 fL (7.4-10.4); Platelet Count 122 10x3/uL (130-400); Red Blood Cell (RBC) Count 3.13 mill/uL (4.20-5.40); White Blood Cell (WBC) Count 10.4 10x3/uL (4.8-10.8)
[2022-12-20 05:54] LABS: Anion Gap 9 mmol/L (10-20); BUN (Urea Nitrogen) 54 mg/dL (9.8-20.1); Calc. Creatinine Clearance 40 mL/min (70-130); Calcium 8.5 mg/dL (7.8-10.44); Carbon Dioxide 26 mmol/L (23-31); Chloride 110 mmol/L (98-107); Estimated GFR 36; Glucose 188 mg/dL (80-115); Sodium 141 mmol/L (136-145)
[2022-12-20 05:55] LABS: Phosphorus 2.4 mg/dL (2.3-4.7)
[2022-12-20] MEDS ORDERED: HumaLOG 300 UNITS/3 ML VIAL SC SCH (08:00)
[2022-12-20] MEDS: Ascorbic Acid 500 mg Chewable Tablet PO SCH (08:21)
[2022-12-20] MEDS: Insulin Glargine 30 UNITS/0.3 ML VIAL SC SCH (08:21)
[2022-12-20] MEDS: Ferrous Sulfate 325 MG TAB PO SCH ×2 (08:21→16:33)
[2022-12-20] MEDS ORDERED: Levothyroxine Sodium 125 MCG TAB PO SCH (08:30)
[2022-12-20] MEDS: Heparin 5,000 UNITS/ML VIAL SC SCH ×2 (08:36→22:02)
[2022-12-20] MEDS ORDERED: Lisinopril 5 MG TAB PO SCH (09:00)
[2022-12-20] MEDS ORDERED: cycloSPORINE 0.05% Ophthalmic Droperette EA EYE SCH (09:00)
[2022-12-20] MEDS: Polyvinyl Alcohol 1.4%/Povidone 0.6% Opth Drops EA EYE SCH ×2 (09:18→22:05)
[2022-12-20] MEDS: FLUoxetine HCl 20 MG CAP PO SCH (09:18)
[2022-12-20] MEDS ORDERED: Benzonatate 100 MG CAP PO PRN (12:58)
[2022-12-20] MEDS: traMADol HCl 50 MG TAB PO PRN ×2 (13:21→22:40)
[2022-12-20] MEDS ORDERED: Loratadine 10 MG TAB PO SCH ×2 (13:45→21:00)
[2022-12-20] MEDS: Famotidine 20 MG TAB PO SCH (22:02)
[2022-12-21] MEDS: cefTRIAXone\\ROCEPHIN 2 GM in Sodium Chloride 0.9% 100 ML IVPB SCH (01:44)
[2022-12-21] MEDS: HumaLOG 300 UNITS/3 ML VIAL SC PRN ×2 (06:02→09:34)
[2022-12-21] MEDS: Acetaminophen 325 MG TAB PO SCH ×2 (06:03→12:07)
[2022-12-21 06:16] LABS: Anion Gap 14 mmol/L (10-20); BUN (Urea Nitrogen) 24 mg/dL (9.8-20.1); Calc. Creatinine Clearance 67 mL/min (70-130); Calcium 8.8 mg/dL (7.8-10.44); Carbon Dioxide 23 mmol/L (23-31); Chloride 101 mmol/L (98-107); Estimated GFR 68; Glucose 268 mg/dL (80-115); Potassium 3.8 mmol/L (3.5-5.1); Sodium 134 mmol/L (136-145)
[2022-12-21] MEDS ORDERED: Levothyroxine Sodium 125 MCG TAB PO SCH (07:30)
[2022-12-21] MEDS ORDERED: traMADol HCl 50 MG TAB PO PRN (07:52)
[2022-12-21] MEDS: FLUoxetine HCl 20 MG CAP PO SCH (09:23)
[2022-12-21] MEDS: Ferrous Sulfate 325 MG TAB PO SCH (09:24)
[2022-12-21] MEDS: Ascorbic Acid 500 mg Chewable Tablet PO SCH (09:24)
[2022-12-21] MEDS: Polyvinyl Alcohol 1.4%/Povidone 0.6% Opth Drops EA EYE SCH (10:17)
[2022-12-21] MEDS ORDERED: Insulin Glargine 30 UNITS/0.3 ML VIAL SC SCH (11:15)
[2022-12-21] MEDS: Heparin 5,000 UNITS/ML VIAL SC SCH (14:10)
[2022-12-21 15:29] VITALS: BP 162/84; TEMP 98.1
[2022-12-22] MEDS ORDERED: Insulin Glargine 30 UNITS/0.3 ML VIAL SC SCH (09:00)
== END 2022-12-21 16:36 | DRG 492 ==
LOC: ERS 00:02 → ERHOLD 01:29 → 2NO 18:24 → OBSVTOIN 12-18 09:50 → SJJU 12-18 16:57
PROVIDERS: ADMIT Surgery; ATTEND Surgery
PROC: 0QSH06Z Reposition Left Tibia with Intramedullary Internal Fixation Device, Open Approach (ICD-10-PCS; principal; 2022-12-17)
PROC: 2W3RX1Z Immobilization of Left Lower Leg using Splint (ICD-10-PCS; 2022-12-17)
DX: S82.192A Other fracture of upper end of left tibia, initial encounter for closed fracture (principal); J95.821 Acute postprocedural respiratory failure; F05 Delirium due to known physiological condition; N17.9 Acute kidney failure, unspecified; N39.0 Urinary tract infection, site not specified; S82.832A Other fracture of upper and lower end of left fibula, initial encounter for closed fracture; E03.9 Hypothyroidism, unspecified; E10.649 Type 1 diabetes mellitus with hypoglycemia without coma; Z79.4 Long term (current) use of insulin; H40.9 Unspecified glaucoma; I95.9 Hypotension, unspecified; T40.605A Adverse effect of unspecified narcotics, initial encounter; Z96.643 Presence of artificial hip joint, bilateral; Z98.890 Other specified postprocedural states; Z79.899 Other long term (current) drug therapy; Z88.2 Allergy status to sulfonamides; Z88.8 Allergy status to other drugs, medicaments and biological substances; W19.XXXA Unspecified fall, initial encounter; Z60.2 Problems related to living alone; W18.30XA Fall on same level, unspecified, initial encounter; Y92.000 Kitchen of unspecified non-institutional (private) residence as the place of occurrence of the external cause; R00.1 Bradycardia, unspecified; Z90.710 Acquired absence of both cervix and uterus; Z90.89 Acquired absence of other organs; F32.A Depression, unspecified; E10.65 Type 1 diabetes mellitus with hyperglycemia
CPT/HCPCS: 36415; 36416; 70450; 71045; 80048; 80053; 81003; 81015; 82010; 82140; 82550; 82570; 83605; 83735; 83880; 84100; 84300; 84443; 84484; 85025; 85610; 85730; 86850; 86900; 86901; 87040; 87149; 90471; 90714; 90715; 93005; 93010; 93306; 93880; 96374; 96375; 96376; C1713; C1769; C1781; G0378; G0390; J0171; J0696; J1170; J1644; J1650; J1815; J2250; J2272; J2310; J2704; J3010; J3490; J7050; J7120

== ENCOUNTER 2023-04-12 17:04 | Inpatient (IN) | payer MEDICARE, BC ==
[2023-04-12] MEDS ORDERED: Boostrix 0.5 ML (Tdap) VIAL (>/=7 yrs of age) ONE (17:48)
[2023-04-12 18:00] LABS: Actual Bicarbonate (HCO3v) 25.4 mEq/L (22-28); Base Excess 2.9 mEq/L (-2.0 to +3.0); Calcium, Ionized (venous) 1.03 mmol/L (1.16-1.32); Chloride (VBG) 96 mmol/L (98-106); Hematocrit-VBG 37 % (36.0-47.0); Hemoglobin (Hb) 12.6 g/dL (11.7-16.1); Potassium (VBG) 3.45 mmol/L (3.70-5.30); Sodium 133 mmol/L (133-146); pH (venous) 7.513 (7.32-7.43)
[2023-04-12 18:06] LABS: #Basophils 0.1 thou/uL (0.0-0.2); #Eosinphils 0.3 thou/uL (0.0-0.7); #Monocytes 1.1 thou/uL (0.11-0.59); #Neutrophils 8.6 thou/uL (1.40-6.50); %Basophils 0.4 % (0.0-1.0); %Eosinophils 2.3 % (0.0-10.0); %Lymphocytes 17.7 % (21.0-51.0); %Monocytes 8.9 % (0.0-10.0); %Neutrophils 70.3 % (42.0-75.0); Hematocrit 34.3 % (36.0-47.0); Hemoglobin 11.6 g/dL (12.0-16.0); Mean Corpuscular HGB CONC 33.8 g/dL (32.0-36.0); Mean Corpuscular Hemoglobin 27.9 pg (27.0-31.0); Mean Corpuscular Volume 82.5 fl (78.0-98.0); Platelet Count 252 10x3/uL (130-400); RBC Distribution Width 13.5 % (11.5-14.5); Red Blood Cell (RBC) Count 4.16 mill/uL (4.20-5.40); White Blood Cell (WBC) Count 12.3 10x3/uL (4.8-10.8)
[2023-04-12 18:22] LABS: Bacteria/HPF None Seen HPF (None Seen); Bilirubin Negative (Negative); Blood, Urine Negative (Negative); CAUTI Indications for Culture Dysuria,urgency,freq; Clarity Clear (Clear); Glucose, Urine (Dipstick) Greater than 1000 mg/dL (Negative); Ketone, Urine 60 mg/dL (Negative); Leukocyte 25 Leu/uL (Negative); Nitrite Negative (Negative); Protein, Urine (Dipstick) 20 mg/dL (Neg-Trace); Specific Gravity, Urine 1.016 (1.002-1.036); Urobilinogen Normal mg/dL (Less than 2); WBC/HPF 0-3 HPF (0-3); pH, Urine 6.5 (5.0-9.0)
[2023-04-12 18:23] LABS: Urine Culture Reflex No No
[2023-04-12 18:31] LABS: ALT (SGPT) 26 U/L (8-55); AST (SGOT) 25 U/L (5-34); Albumin 3.6 g/dL (3.4-4.8); Alkaline Phosphatase 94 U/L (40-110); Anion Gap 15 mmol/L (10-20); BUN (Urea Nitrogen) 15 mg/dL (9.8-20.1); Bilirubin, Total 0.8 mg/dL (0.2-1.2); Calc. Creatinine Clearance 0 mL/min (70-130); Carbon Dioxide 25 mmol/L (23-31); Chloride 95 mmol/L (98-107); Estimated GFR 89; Globulin 2.9 g/dL (2.4-3.5); Glucose 266 mg/dL (80-115); Lipase 5 U/L (8-78); Potassium 3.4 mmol/L (3.5-5.1); Protein, Total 6.5 g/dL (5.8-8.1); Sodium 132 mmol/L (136-145)
[2023-04-12 18:34] LABS: Troponin I 0.172 ng/mL (< 0.028)
[2023-04-12] MEDS ORDERED: Aspirin Chewable 81 MG TAB ONE (20:48)
[2023-04-12] MEDS ORDERED: Ondansetron ODT 4 MG TAB SL PRN (21:00)
[2023-04-12] MEDS ORDERED: Acetaminophen 325 MG TAB PO PRN (21:00)
[2023-04-12] MEDS ORDERED: Ondansetron PF 4 MG/2 ML Vial IVP PRN (21:00)
[2023-04-12 22:13] LABS: Troponin I 0.172 ng/mL (< 0.028)
[2023-04-12] MEDS ORDERED: traZODone HCl 150 MG TAB PO PRN (23:29)
[2023-04-12] MEDS ORDERED: cefTRIAXone (ROCEPHIN) 2 GM VIAL IVPB SCH (23:30)
[2023-04-12] MEDS ORDERED: Senokot S 8.6-50 MG TAB PO PRN (23:34)
[2023-04-12] MEDS ORDERED: Dextrose 5% in Water 1,000 ML IV PRN (23:36)
[2023-04-12] MEDS ORDERED: HumaLOG 300 UNITS/3 ML VIAL SC PRN (23:36)
[2023-04-12] MEDS ORDERED: Glucagon 1 MG/ML KIT IM PRN (23:36)
[2023-04-12] MEDS ORDERED: Dextrose 50% Abboject 50 ML SYRINGE SLOW IVP PRN (23:36)
[2023-04-13 00:53] VITALS: BMI 24.3
[2023-04-13] MEDS ORDERED: cefTRIAXone\\ROCEPHIN 2 GM in Sodium Chloride 0.9% 100 ML IVPB SCH (01:00)
[2023-04-13 04:33] LABS: #Eosinphils 0.5 thou/uL (0.0-0.7); #Monocytes 1.2 thou/uL (0.11-0.59); #Neutrophils 7.1 thou/uL (1.40-6.50); %Basophils 0.4 % (0.0-1.0); %Eosinophils 4.1 % (0.0-10.0); %Lymphocytes 21.3 % (21.0-51.0); %Monocytes 10.8 % (0.0-10.0); %Neutrophils 63.1 % (42.0-75.0); Hematocrit 32.8 % (36.0-47.0); Mean Corpuscular HGB CONC 33.5 g/dL (32.0-36.0); Mean Corpuscular Hemoglobin 28.1 pg (27.0-31.0); Mean Corpuscular Volume 83.7 fl (78.0-98.0); Mean Platelet Volume 9.9 fL (7.4-10.4); Platelet Count 233 10x3/uL (130-400); RBC Distribution Width 13.7 % (11.5-14.5); Red Blood Cell (RBC) Count 3.92 mill/uL (4.20-5.40); White Blood Cell (WBC) Count 11.2 10x3/uL (4.8-10.8)
[2023-04-13 04:57] LABS: Anion Gap 11 mmol/L (10-20); BUN (Urea Nitrogen) 10 mg/dL (9.8-20.1); Calc. Creatinine Clearance 89 mL/min (70-130); Carbon Dioxide 32 mmol/L (23-31); Chloride 99 mmol/L (98-107); Estimated GFR 97; Glucose 93 mg/dL (80-115); Potassium 4.3 mmol/L (3.5-5.1); Sodium 138 mmol/L (136-145)
[2023-04-13 05:00] LABS: Troponin I 0.162 ng/mL (< 0.028)
[2023-04-13] MEDS: Levothyroxine Sodium 125 MCG TAB PO SCH (06:19)
[2023-04-13] MEDS: Carvedilol 6.25 MG TAB PO SCH ×2 (08:32→16:50)
[2023-04-13] MEDS: Potassium Chloride 10 MEQ TAB PO SCH (08:33)
[2023-04-13] MEDS: Trospium 20 MG TAB PO SCH ×2 (08:33→21:54)
[2023-04-13] MEDS: Hydrochlorothiazide 25 MG TAB PO SCH (08:33)
[2023-04-13] MEDS: cycloSPORINE 0.05% Ophthalmic Droperette EA EYE SCH ×2 (08:33→21:54)
[2023-04-13] MEDS: FLUoxetine HCl 20 MG CAP PO SCH (08:33)
[2023-04-13] MEDS: NIFEdipine XL 30 MG ER.TAB PO SCH (08:33)
[2023-04-13] MEDS: Famotidine 20 MG TAB PO SCH ×2 (08:33→21:54)
[2023-04-13] MEDS ORDERED: FLU VACC QS2023(65UP)/MF59C/PF 60 MCG/0.5 ML SYRINGE IM ONE (09:00)
[2023-04-13] MEDS ORDERED: cloNIDine 0.1 MG TAB PO PRN (10:34)
[2023-04-13] MEDS: Ertapenem 1 GM in Sodium Chloride 0.9% 100 ML IVPB SCH (16:50)
[2023-04-13] MEDS ORDERED: (Netarsudil Mesylate [Rhopressa] 2.5 ML Drops) EA EYE SCH (21:00)
[2023-04-14] MEDS: Levothyroxine Sodium 125 MCG TAB PO SCH (06:26)
[2023-04-14] MEDS: HumaLOG 300 UNITS/3 ML VIAL SC PRN (06:27)
[2023-04-14 06:45] LABS: #Eosinphils 0.5 thou/uL (0.0-0.7); %Basophils 0.3 % (0.0-1.0); %Eosinophils 4.2 % (0.0-10.0); %Lymphocytes 12.6 % (21.0-51.0); %Neutrophils 74.7 % (42.0-75.0); Hematocrit 34.5 % (36.0-47.0); Hemoglobin 11.6 g/dL (12.0-16.0); Mean Corpuscular HGB CONC 33.6 g/dL (32.0-36.0); Mean Corpuscular Hemoglobin 28.2 pg (27.0-31.0); Mean Corpuscular Volume 83.9 fl (78.0-98.0); Mean Platelet Volume 9.7 fL (7.4-10.4); Platelet Count 274 10x3/uL (130-400); RBC Distribution Width 14.1 % (11.5-14.5); Red Blood Cell (RBC) Count 4.11 mill/uL (4.20-5.40)
[2023-04-14 07:06] LABS: Anion Gap 12 mmol/L (10-20); BUN (Urea Nitrogen) 9 mg/dL (9.8-20.1); Calc. Creatinine Clearance 78 mL/min (70-130); Calcium 8.9 mg/dL (7.8-10.44); Carbon Dioxide 30 mmol/L (23-31); Chloride 94 mmol/L (98-107); Estimated GFR 89; Glucose 238 mg/dL (80-115); Potassium 3.9 mmol/L (3.5-5.1); Sodium 132 mmol/L (136-145)
[2023-04-14] MEDS: Trospium 20 MG TAB PO SCH ×2 (09:06→20:32)
[2023-04-14] MEDS: Famotidine 20 MG TAB PO SCH ×2 (09:06→20:32)
[2023-04-14] MEDS: Potassium Chloride 10 MEQ TAB PO SCH (09:06)
[2023-04-14] MEDS: Carvedilol 6.25 MG TAB PO SCH ×2 (09:06→16:49)
[2023-04-14] MEDS: FLUoxetine HCl 20 MG CAP PO SCH (09:06)
[2023-04-14] MEDS: NIFEdipine XL 30 MG ER.TAB PO SCH (09:06)
[2023-04-14] MEDS: Hydrochlorothiazide 25 MG TAB PO SCH (09:06)
[2023-04-14] MEDS: cycloSPORINE 0.05% Ophthalmic Droperette EA EYE SCH ×2 (09:08→20:32)
[2023-04-14] MEDS: Ertapenem 1 GM in Sodium Chloride 0.9% 100 ML IVPB SCH (16:50)
[2023-04-15] MEDS: Levothyroxine Sodium 125 MCG TAB PO SCH (06:10)
[2023-04-15] MEDS: FLUoxetine HCl 20 MG CAP PO SCH (08:47)
[2023-04-15] MEDS: NIFEdipine XL 30 MG ER.TAB PO SCH (08:47)
[2023-04-15] MEDS: Hydrochlorothiazide 25 MG TAB PO SCH (08:47)
[2023-04-15] MEDS: Carvedilol 6.25 MG TAB PO SCH ×2 (08:47→16:45)
[2023-04-15] MEDS: Trospium 20 MG TAB PO SCH ×2 (08:47→21:29)
[2023-04-15] MEDS: Famotidine 20 MG TAB PO SCH ×2 (08:47→21:29)
[2023-04-15] MEDS: Potassium Chloride 10 MEQ TAB PO SCH (08:48)
[2023-04-15] MEDS: cycloSPORINE 0.05% Ophthalmic Droperette EA EYE SCH ×2 (08:49→21:29)
[2023-04-15] MEDS: Ertapenem 1 GM in Sodium Chloride 0.9% 100 ML IVPB SCH (16:45)
[2023-04-16] MEDS: Levothyroxine Sodium 125 MCG TAB PO SCH (05:44)
[2023-04-16] MEDS: FLUoxetine HCl 20 MG CAP PO SCH (08:11)
[2023-04-16] MEDS: Carvedilol 6.25 MG TAB PO SCH ×2 (08:11→16:56)
[2023-04-16] MEDS: NIFEdipine XL 30 MG ER.TAB PO SCH (08:11)
[2023-04-16] MEDS: Famotidine 20 MG TAB PO SCH ×2 (08:12→21:44)
[2023-04-16] MEDS: Hydrochlorothiazide 25 MG TAB PO SCH (08:12)
[2023-04-16] MEDS: Potassium Chloride 10 MEQ TAB PO SCH (08:12)
[2023-04-16] MEDS: Trospium 20 MG TAB PO SCH ×2 (08:14→21:44)
[2023-04-16] MEDS: HumaLOG 300 UNITS/3 ML VIAL SC PRN ×2 (08:40→11:45)
[2023-04-16] MEDS: cycloSPORINE 0.05% Ophthalmic Droperette EA EYE SCH ×2 (08:44→21:44)
[2023-04-16] MEDS: Ertapenem 1 GM in Sodium Chloride 0.9% 100 ML IVPB SCH (16:56)
[2023-04-17] MEDS: Levothyroxine Sodium 125 MCG TAB PO SCH (06:42)
[2023-04-17] MEDS: NIFEdipine XL 30 MG ER.TAB PO SCH (07:56)
[2023-04-17] MEDS: FLUoxetine HCl 20 MG CAP PO SCH (07:56)
[2023-04-17] MEDS: Trospium 20 MG TAB PO SCH (07:56)
[2023-04-17] MEDS: Potassium Chloride 10 MEQ TAB PO SCH (07:56)
[2023-04-17] MEDS: Hydrochlorothiazide 25 MG TAB PO SCH (07:57)
[2023-04-17] MEDS: Famotidine 20 MG TAB PO SCH (07:57)
[2023-04-17] MEDS: Carvedilol 6.25 MG TAB PO SCH (07:57)
[2023-04-17] MEDS: cycloSPORINE 0.05% Ophthalmic Droperette EA EYE SCH (07:59)
[2023-04-17 09:52] LABS: #Basophils 0.1 thou/uL (0.0-0.2); #Eosinphils 0.6 thou/uL (0.0-0.7); #Monocytes 0.7 thou/uL (0.11-0.59); #Neutrophils 7.1 thou/uL (1.40-6.50); %Basophils 0.5 % (0.0-1.0); %Eosinophils 6.1 % (0.0-10.0); %Lymphocytes 12.6 % (21.0-51.0); %Neutrophils 73.5 % (42.0-75.0); Hemoglobin 13.1 g/dL (12.0-16.0); Mean Corpuscular HGB CONC 33.6 g/dL (32.0-36.0); Mean Corpuscular Volume 83.3 fl (78.0-98.0); Mean Platelet Volume 9.4 fL (7.4-10.4); Platelet Count 310 10x3/uL (130-400); RBC Distribution Width 14.3 % (11.5-14.5); Red Blood Cell (RBC) Count 4.68 mill/uL (4.20-5.40); White Blood Cell (WBC) Count 9.6 10x3/uL (4.8-10.8)
[2023-04-17 10:13] LABS: Anion Gap 14 mmol/L (10-20); BUN (Urea Nitrogen) 13 mg/dL (9.8-20.1); Calc. Creatinine Clearance 68 mL/min (70-130); Calcium 9.2 mg/dL (7.8-10.44); Carbon Dioxide 25 mmol/L (23-31); Chloride 94 mmol/L (98-107); Estimated GFR 76; Glucose 197 mg/dL (80-115); Potassium 4.2 mmol/L (3.5-5.1); Sodium 129 mmol/L (136-145)
[2023-04-17 12:24] VITALS: BP 146/76; TEMP 98.1
[2023-04-17] MEDS: HumaLOG 300 UNITS/3 ML VIAL SC PRN (12:37)
[2023-04-17] MEDS: Ertapenem 1 GM in Sodium Chloride 0.9% 100 ML IVPB SCH (14:34)
== END 2023-04-17 16:16 | DRG 689 ==
LOC: ERS 17:04 → 2NO 20:46 → T4-A 04-13 19:18 → OBSVTOIN 04-14 12:16
PROVIDERS: ADMIT Student in an Organized Health Care Education/Training Program; ATTEND Internal Medicine
PROC: 4A043R1 Measurement of Venous Saturation, Peripheral, Percutaneous Approach (ICD-10-PCS; principal; 2023-04-12)
DX: N39.0 Urinary tract infection, site not specified (principal); I21.A1 Myocardial infarction type 2; Z88.2 Allergy status to sulfonamides; Z88.8 Allergy status to other drugs, medicaments and biological substances; Z79.899 Other long term (current) drug therapy; Z79.4 Long term (current) use of insulin; Z90.89 Acquired absence of other organs; E03.9 Hypothyroidism, unspecified; R62.7 Adult failure to thrive; E10.9 Type 1 diabetes mellitus without complications; F32.A Depression, unspecified; I50.9 Heart failure, unspecified; I11.0 Hypertensive heart disease with heart failure; Z98.890 Other specified postprocedural states; Z82.49 Family history of ischemic heart disease and other diseases of the circulatory system; Z68.24 Body mass index [BMI] 24.0-24.9, adult
CPT/HCPCS: 36415; 36416; 70450; 71045; 72125; 80048; 80053; 81001; 82805; 83605; 83690; 83880; 84484; 85025; 87040; 87086; 90471; 90715; 93005; 96372; 96374; 96375; G0378; J0696; J1335; J1650; J1815; J3490

== ENCOUNTER 2023-05-02 05:08 | Emergency (ER) | payer MEDICARE, BC ==
[2023-05-02 05:58] LABS: #Eosinphils 0.2 thou/uL (0.0-0.7); #Monocytes 0.4 thou/uL (0.11-0.59); #Neutrophils 3.8 thou/uL (1.40-6.50); %Basophils 0.4 % (0.0-1.0); %Eosinophils 4.5 % (0.0-10.0); %Lymphocytes 17.4 % (21.0-51.0); %Monocytes 6.9 % (0.0-10.0); %Neutrophils 70.4 % (42.0-75.0); Hematocrit 38.2 % (36.0-47.0); Hemoglobin 12.4 g/dL (12.0-16.0); Mean Corpuscular HGB CONC 32.5 g/dL (32.0-36.0); Mean Corpuscular Hemoglobin 28.6 pg (27.0-31.0); Mean Platelet Volume 10.2 fL (7.4-10.4); Platelet Count 226 10x3/uL (130-400); RBC Distribution Width 14.5 % (11.5-14.5); Red Blood Cell (RBC) Count 4.34 mill/uL (4.20-5.40); White Blood Cell (WBC) Count 5.3 10x3/uL (4.8-10.8)
[2023-05-02 06:27] LABS: ALT (SGPT) 13 U/L (8-55); AST (SGOT) 25 U/L (5-34); Albumin 4.2 g/dL (3.4-4.8); Alkaline Phosphatase 84 U/L (40-110); Anion Gap 14 mmol/L (10-20); BUN (Urea Nitrogen) 23 mg/dL (9.8-20.1); Bilirubin, Total 0.4 mg/dL (0.2-1.2); Calc. Creatinine Clearance 0 mL/min (70-130); Calcium 9.5 mg/dL (7.8-10.44); Carbon Dioxide 28 mmol/L (23-31); Chloride 96 mmol/L (98-107); Estimated GFR 72; Globulin 2.5 g/dL (2.4-3.5); Glucose 72 mg/dL (80-115); Lipase 6 U/L (8-78); Potassium 3.6 mmol/L (3.5-5.1); Protein, Total 6.7 g/dL (5.8-8.1); Sodium 134 mmol/L (136-145)
== END 2023-05-02 10:15 | disposition home or self-care (01) ==
LOC: ERS 05:08
DX: E11.649 Type 2 diabetes mellitus with hypoglycemia without coma (principal); E87.1 Hypo-osmolality and hyponatremia; I10 Essential (primary) hypertension; E03.9 Hypothyroidism, unspecified; Z79.4 Long term (current) use of insulin; Z79.899 Other long term (current) drug therapy
CPT/HCPCS: 36415; 36416; 71045; 80053; 83690; 85025

== ENCOUNTER 2023-05-11 13:46 | Inpatient (IN) | payer MEDICARE, BC ==
[2023-05-11 14:02] LABS: Analyzer IN Cardio ER; Base Excess -20.6 mEq/L (-2.0 to +3.0); Calcium, Ionized (venous) 1.21 mmol/L (1.16-1.32); Chloride (VBG) 89 mmol/L (98-106); Hematocrit-VBG 33 % (36.0-47.0); Hemoglobin (Hb) 11.3 g/dL (11.7-16.1); Potassium (VBG) 5.85 mmol/L (3.70-5.30); Sodium 132 mmol/L (133-146)
[2023-05-11 14:06] LABS: #Basophils 0.1 thou/uL (0.0-0.2); #Monocytes 0.6 thou/uL (0.11-0.59); #Neutrophils 19.3 thou/uL (1.40-6.50); %Basophils 0.2 % (0.0-1.0); %Lymphocytes 2.6 % (21.0-51.0); %Monocytes 2.9 % (0.0-10.0); %Neutrophils 93.5 % (42.0-75.0); Hematocrit 34.2 % (36.0-47.0); Hemoglobin 10.5 g/dL (12.0-16.0); Mean Corpuscular HGB CONC 30.7 g/dL (32.0-36.0); Mean Corpuscular Hemoglobin 29.2 pg (27.0-31.0); Mean Platelet Volume 10.9 fL (7.4-10.4); Platelet Count 308 10x3/uL (130-400); RBC Distribution Width 15.1 % (11.5-14.5); White Blood Cell (WBC) Count 20.7 10x3/uL (4.8-10.8)
[2023-05-11 14:37] LABS: Troponin I 0.115 ng/mL (< 0.028)
[2023-05-11 14:43] LABS: Albumin 4.4 g/dL (3.4-4.8)
[2023-05-11 14:44] LABS: Chloride 87 mmol/L (98-107); Sodium 128 mmol/L (136-145)
[2023-05-11 14:45] LABS: Calcium 9.9 mg/dL (7.8-10.44)
[2023-05-11 14:45] LABS: Bacteria/HPF 2+ HPF (None Seen); Bilirubin Negative (Negative); Blood, Urine Trace (Negative); CAUTI Indications for Culture Alt mental st,lethar; Clarity Clear (Clear); Glucose, Urine (Dipstick) Greater than 1000 mg/dL (Negative); Ketone, Urine 60 mg/dL (Negative); Leukocyte 250 Leu/uL (Negative); Nitrite Negative (Negative); Protein, Urine (Dipstick) Negative (Neg-Trace); RBC/HPF 0-3 HPF (0-3); Specific Gravity, Urine 1.021 (1.002-1.036); Squamous Epithelial None Seen HPF (0-3); Urobilinogen Normal mg/dL (Less than 2); WBC/HPF 21-50 HPF (0-3)
[2023-05-11 14:50] LABS: ALT (SGPT) 16 U/L (8-55); AST (SGOT) 21 U/L (5-34); Alkaline Phosphatase 115 U/L (40-110); BUN (Urea Nitrogen) 53 mg/dL (9.8-20.1); Bilirubin, Total 1.1 mg/dL (0.2-1.2); Calc. Creatinine Clearance 0 mL/min (70-130); Carbon Dioxide Less than 8 mmol/L (23-31); Estimated GFR 20; Globulin 1.9 g/dL (2.4-3.5); Glucose 1006 mg/dL (80-115); Lipase 8 U/L (8-78); Magnesium 2.5 mg/dL (1.6-2.6); Phosphorus 6.9 mg/dL (2.3-4.7); Potassium 6.2 mmol/L (3.5-5.1); Protein, Total 6.5 g/dL (5.8-8.1)
[2023-05-11 14:52] LABS: Urine Culture Reflex Yes Yes
[2023-05-11 14:55] LABS: #Monocytes 0.5 thou/uL (0.11-0.59); #Neutrophils 17.3 thou/uL (1.40-6.50); %Basophils 0.2 % (0.0-1.0); %Lymphocytes 2.8 % (21.0-51.0); %Monocytes 2.5 % (0.0-10.0); %Neutrophils 93.6 % (42.0-75.0); Hematocrit 33.2 % (36.0-47.0); Hemoglobin 10.2 g/dL (12.0-16.0); Mean Corpuscular HGB CONC 30.7 g/dL (32.0-36.0); Mean Corpuscular Hemoglobin 29.2 pg (27.0-31.0); Mean Corpuscular Volume 95.1 fl (78.0-98.0); Mean Platelet Volume 11.1 fL (7.4-10.4); Platelet Count 283 10x3/uL (130-400); RBC Distribution Width 14.8 % (11.5-14.5); Red Blood Cell (RBC) Count 3.49 mill/uL (4.20-5.40); White Blood Cell (WBC) Count 18.5 10x3/uL (4.8-10.8)
[2023-05-11] MEDS ORDERED: Insulin Regular 300 UNITS/3 ML VIAL ONE (14:59)
[2023-05-11] MEDS ORDERED: INSULIN REGULAR IN 0.9 % NACL 100 UNITS/100 ML BAG ONE (14:59)
[2023-05-11] MEDS ORDERED: Vancomycin Dose by Levels Sliding Scale (Wt <71) FS SCH (15:00)
[2023-05-11 15:08] LABS: INR-International Normal Ratio 1.3; PTT 26.6 sec (22.9-36.1); Prothrombin Time 16.2 sec (12.0-14.7)
[2023-05-11 15:25] LABS: ALT (SGPT) 13 U/L (8-55); AST (SGOT) 17 U/L (5-34); Albumin 4.3 g/dL (3.4-4.8); Alkaline Phosphatase 107 U/L (40-110); BUN (Urea Nitrogen) 52 mg/dL (9.8-20.1); Calc. Creatinine Clearance 0 mL/min (70-130); Chloride 88 mmol/L (98-107); Estimated GFR 21; Globulin 2.2 g/dL (2.4-3.5); Potassium 5.5 mmol/L (3.5-5.1); Protein, Total 6.5 g/dL (5.8-8.1); Sodium 131 mmol/L (136-145)
[2023-05-11 15:38] LABS: Carbon Dioxide Less than 8 mmol/L (23-31); Glucose 965 mg/dL (80-115)
[2023-05-11] MEDS ORDERED: Sodium Chloride 0.9% 100 ML ONE (15:45)
[2023-05-11] MEDS ORDERED: cefTRIAXone (ROCEPHIN) 1 GM VIAL ONE (15:45)
[2023-05-11] MEDS ORDERED: Vancomycin 1 GM/200 ML (FROZEN) BAG ONE (15:56)
[2023-05-11] MEDS ORDERED: Meropenem 1 GM in Sodium Chloride 0.9% 100 ML IVPB SCH ×2 (16:15→19:15)
[2023-05-11] MEDS ORDERED: Sodium Chloride 0.9% 1,000 ML IV PRN ×4 (16:54)
[2023-05-11] MEDS ORDERED: D5 1/2 NS w/20 mEq KCL 1,000 ML IV PRN (16:54)
[2023-05-11] MEDS ORDERED: Electrolyte Replacement Protocol 1 EACH IVPB ONE (16:54)
[2023-05-11] MEDS ORDERED: NS 0.9% w/ 20 MEQ KCL 1,000 ML IV PRN ×2 (16:54)
[2023-05-11] MEDS ORDERED: Dextrose 50% Abboject 50 ML SYRINGE SLOW IVP PRN (16:54)
[2023-05-11] MEDS ORDERED: Dextrose 5 %-0.45 % NaCl 1,000 ML IV PRN (16:54)
[2023-05-11] MEDS ORDERED: Acetaminophen 650 MG Suppository PR PRN (16:54)
[2023-05-11] MEDS ORDERED: Aspirin 300 MG Suppository ONE (16:57)
[2023-05-11] MEDS ORDERED: HUMULIN R 100 UNITS in Sodium Chloride 0.9% 100 ML IVPB SCH (17:00)
[2023-05-11 18:34] LABS: Amphetamine Not Detected (NotDetected); Barbiturates Screen Not Detected (NotDetected); Benzodiazepine Screen Not Detected (NotDetected); Cocaine Metabolite Screen Not Detected (NotDetected); Methadone Not Detected (NotDetected); Methamphetamine Not Detected (NotDetected); Opiate Screen Not Detected (NotDetected); Oxycodone Screen Not Detected (NotDetected); Phencyclidine (PCP) Not Detected (NotDetected); THC/Cannabinoid Screen Not Detected (NotDetected); Tricyclic Screen Not Detected (NotDetected)
[2023-05-11 18:35] LABS: BUN (Urea Nitrogen) 46 mg/dL (9.8-20.1); Calc. Creatinine Clearance 0 mL/min (70-130); Calcium 8.6 mg/dL (7.8-10.44); Chloride 100 mmol/L (98-107); Estimated GFR 26; Potassium 4.3 mmol/L (3.5-5.1); Sodium 136 mmol/L (136-145)
[2023-05-11 18:39] LABS: Troponin I 0.161 ng/mL (< 0.028)
[2023-05-11 18:41] LABS: Carbon Dioxide Less than 8 mmol/L (23-31); Glucose 778 mg/dL (80-115); Lactic Acid 5.5 mmol/L (0.5-2.2)
[2023-05-11 18:53] VITALS: BMI 22.8
[2023-05-11] MEDS ORDERED: Electrolyte Replacement Protocol FS PRN (19:00)
[2023-05-11 20:32] LABS: Glucose 561 mg/dL (80-115)
[2023-05-11] MEDS ORDERED: Vancomycin 1 GM in Sodium Chloride 0.9% 250 ML 300 ML IVPB SCH (21:00)
[2023-05-11 21:13] LABS: Anion Gap 28 mmol/L (10-20); BUN (Urea Nitrogen) 46 mg/dL (9.8-20.1); Calc. Creatinine Clearance 26 mL/min (70-130); Calcium 9.4 mg/dL (7.8-10.44); Carbon Dioxide 11 mmol/L (23-31); Chloride 102 mmol/L (98-107); Estimated GFR 27; Potassium 3.9 mmol/L (3.5-5.1); Sodium 137 mmol/L (136-145)
[2023-05-11 21:25] LABS: Glucose 520 mg/dL (80-115)
[2023-05-12] MEDS ORDERED: Meropenem 500 MG in Sodium Chloride 0.9% 100 ML IVPB SCH (05:00)
[2023-05-12 05:02] LABS: #Monocytes 1.4 thou/uL (0.11-0.59); %Basophils 0.1 % (0.0-1.0); %Eosinophils 0.1 % (0.0-10.0); %Monocytes 8.2 % (0.0-10.0); Hematocrit 29.3 % (36.0-47.0); Hemoglobin 9.8 g/dL (12.0-16.0); Mean Corpuscular HGB CONC 33.4 g/dL (32.0-36.0); Mean Corpuscular Hemoglobin 28.9 pg (27.0-31.0); Mean Platelet Volume 9.9 fL (7.4-10.4); Platelet Count 214 10x3/uL (130-400); RBC Distribution Width 15.1 % (11.5-14.5); Red Blood Cell (RBC) Count 3.39 mill/uL (4.20-5.40); White Blood Cell (WBC) Count 17.1 10x3/uL (4.8-10.8)
[2023-05-12 05:08] LABS: Hemoglobin A1c 7.3 % (4.0-6.0)
[2023-05-12 05:23] LABS: Anion Gap 12 mmol/L (10-20); BUN (Urea Nitrogen) 39 mg/dL (9.8-20.1); Calc. Creatinine Clearance 37 mL/min (70-130); Calcium 9.2 mg/dL (7.8-10.44); Carbon Dioxide 24 mmol/L (23-31); Cardiac Risk 2.6 (Less than 4.5); Chloride 109 mmol/L (98-107); Cholesterol 156 mg/dl (< 200 Desired); Estimated GFR 40; Glucose 208 mg/dL (80-115); HDL Cholesterol 61 mg/dL (>60 Neg Risk); LDL Cholesterol, Calculated 81 mg/dL; Potassium 4.1 mmol/L (3.5-5.1); Sodium 141 mmol/L (136-145); Triglycerides 68 mg/dL (Less than 150)
[2023-05-12 05:25] LABS: Anion Gap 13 mmol/L (10-20); BUN (Urea Nitrogen) 38 mg/dL (9.8-20.1); Calc. Creatinine Clearance 37 mL/min (70-130); Calcium 9.2 mg/dL (7.8-10.44); Carbon Dioxide 24 mmol/L (23-31); Chloride 109 mmol/L (98-107); Estimated GFR 41; Glucose 210 mg/dL (80-115); Potassium 4.1 mmol/L (3.5-5.1); Sodium 142 mmol/L (136-145)
[2023-05-12 05:30] LABS: Mean Corpuscular Volume 86.4 fl (78.0-98.0)
[2023-05-12 05:31] LABS: ALT (SGPT) 15 U/L (8-55); AST (SGOT) 30 U/L (5-34); Albumin 3.9 g/dL (3.4-4.8); Alkaline Phosphatase 88 U/L (40-110); Bilirubin, Direct 0.3 mg/dL (0.1-0.3); Bilirubin, Total 0.5 mg/dL (0.2-1.2); Protein, Total 5.9 g/dL (5.8-8.1)
[2023-05-12 05:33] LABS: Troponin I 2.348 ng/mL (< 0.028)
[2023-05-12] MEDS ORDERED: Dextrose 5% in Water 1,000 ML IV PRN (05:40)
[2023-05-12] MEDS ORDERED: Glucagon 1 MG/ML KIT IM PRN (05:40)
[2023-05-12] MEDS ORDERED: Dextrose 50% Abboject 50 ML SYRINGE SLOW IVP PRN (05:40)
[2023-05-12] MEDS ORDERED: Insulin Glargine 30 UNITS/0.3 ML VIAL SC SCH (05:45)
[2023-05-12 05:49] LABS: Thyroid Stimulating Hormone 0.4245 uIU/mL (0.35-4.94)
[2023-05-12] MEDS ORDERED: Magnesium 2 GM/50 ML(in water) 2 GM in Premix 1 BAG IVPB SCH (08:00)
[2023-05-12] MEDS ORDERED: FLU VACC QS2023(65UP)/MF59C/PF 60 MCG/0.5 ML SYRINGE IM ONE (09:00)
[2023-05-12] MEDS ORDERED: Famotidine/PF 20 mg/2ml Vial SLOW IVP SCH (09:00)
[2023-05-12 16:26] LABS: SARS-CoV-2 NAA Rapid Test Not Detected (NotDetected)
[2023-05-12 17:34] LABS: Vancomycin, Random 6.1 ug/mL (See Comment)
[2023-05-12] MEDS: Meropenem 1 GM in Sodium Chloride 0.9% 100 ML IVPB SCH (17:37)
[2023-05-12] MEDS ORDERED: Vancomycin 1 GM in Premix 1 BAG IVPB SCH (18:00)
[2023-05-12] MEDS: Ondansetron PF 4 MG/2 ML Vial IVP PRN (23:56)
[2023-05-13 03:53] LABS: #Monocytes 0.6 thou/uL (0.11-0.59); #Neutrophils 8.8 thou/uL (1.40-6.50); %Basophils 0.2 % (0.0-1.0); %Eosinophils 0.2 % (0.0-10.0); %Lymphocytes 9.2 % (21.0-51.0); %Monocytes 5.4 % (0.0-10.0); %Neutrophils 84.7 % (42.0-75.0); Hematocrit 32.2 % (36.0-47.0); Hemoglobin 10.7 g/dL (12.0-16.0); Mean Corpuscular HGB CONC 33.2 g/dL (32.0-36.0); Mean Corpuscular Hemoglobin 29.2 pg (27.0-31.0); Mean Corpuscular Volume 87.7 fl (78.0-98.0); Mean Platelet Volume 9.8 fL (7.4-10.4); Platelet Count 144 10x3/uL (130-400); RBC Distribution Width 15.6 % (11.5-14.5); Red Blood Cell (RBC) Count 3.67 mill/uL (4.20-5.40); White Blood Cell (WBC) Count 10.4 10x3/uL (4.8-10.8)
[2023-05-13 04:15] LABS: Anion Gap 15 mmol/L (10-20); BUN (Urea Nitrogen) 27 mg/dL (9.8-20.1); Calc. Creatinine Clearance 54 mL/min (70-130); Calcium 8.9 mg/dL (7.8-10.44); Carbon Dioxide 23 mmol/L (23-31); Chloride 103 mmol/L (98-107); Estimated GFR 64; Glucose 226 mg/dL (80-115); Potassium 4.6 mmol/L (3.5-5.1); Sodium 136 mmol/L (136-145)
[2023-05-13] MEDS: Meropenem 1 GM in Sodium Chloride 0.9% 100 ML IVPB SCH ×2 (05:58→17:22)
[2023-05-13] MEDS ORDERED: Magnesium 2 GM/50 ML(in water) 2 GM in Premix 1 BAG IVPB SCH (08:00)
[2023-05-13] MEDS ORDERED: Famotidine 20 MG TAB PO SCH (09:00)
[2023-05-13] MEDS ORDERED: cycloSPORINE 0.05% Ophthalmic Droperette EA EYE SCH (09:00)
[2023-05-13] MEDS: Insulin Glargine 30 UNITS/0.3 ML VIAL SC SCH (10:06)
[2023-05-13] MEDS: Potassium Chloride 10 MEQ TAB PO SCH (10:06)
[2023-05-13] MEDS: FLUoxetine HCl 20 MG CAP PO SCH (10:07)
[2023-05-13] MEDS: Carvedilol 6.25 MG TAB PO SCH ×2 (10:13→20:36)
[2023-05-13] MEDS: HumaLOG 300 UNITS/3 ML VIAL SC PRN ×2 (10:15→17:22)
[2023-05-13] MEDS ORDERED: Levothyroxine Sodium 125 MCG TAB PO SCH (11:00)
[2023-05-13] MEDS: Polyvinyl Alcohol 1.4%/Povidone 0.6% Opth Drops EA EYE SCH ×2 (12:00→20:36)
[2023-05-13] MEDS: Vancomycin HCl 500 MG in Sodium Chloride 0.9% 100 ML IVPB SCH (12:00)
[2023-05-13] MEDS ORDERED: traZODone HCl 50 MG TAB PO SCH (19:30)
[2023-05-13] MEDS: Ondansetron PF 4 MG/2 ML Vial IVP PRN (20:37)
[2023-05-13] MEDS ORDERED: Calcium Carbonate 500 MG ChewTAB PO PRN (22:41)
[2023-05-14] MEDS: Vancomycin HCl 500 MG in Sodium Chloride 0.9% 100 ML IVPB SCH ×3 (01:09→23:45)
[2023-05-14] MEDS: Meropenem 1 GM in Sodium Chloride 0.9% 100 ML IVPB SCH ×3 (06:20→21:08)
[2023-05-14] MEDS: Levothyroxine Sodium 125 MCG TAB PO SCH (06:21)
[2023-05-14 08:05] LABS: #Eosinphils 0.2 thou/uL (0.0-0.7); #Monocytes 0.5 thou/uL (0.11-0.59); #Neutrophils 5.3 thou/uL (1.40-6.50); %Basophils 0.3 % (0.0-1.0); %Eosinophils 2.4 % (0.0-10.0); %Lymphocytes 17.4 % (21.0-51.0); %Monocytes 6.7 % (0.0-10.0); %Neutrophils 72.8 % (42.0-75.0); Hematocrit 32.8 % (36.0-47.0); Hemoglobin 11.1 g/dL (12.0-16.0); Mean Corpuscular HGB CONC 33.8 g/dL (32.0-36.0); Mean Corpuscular Hemoglobin 29.4 pg (27.0-31.0); Mean Platelet Volume 11.1 fL (7.4-10.4); RBC Distribution Width 15.5 % (11.5-14.5); Red Blood Cell (RBC) Count 3.77 mill/uL (4.20-5.40); White Blood Cell (WBC) Count 7.2 10x3/uL (4.8-10.8)
[2023-05-14 08:08] LABS: Anion Gap 9 mmol/L (10-20); BUN (Urea Nitrogen) 17 mg/dL (9.8-20.1); Calc. Creatinine Clearance 75 mL/min (70-130); Calcium 8.2 mg/dL (7.8-10.44); Carbon Dioxide 28 mmol/L (23-31); Chloride 101 mmol/L (98-107); Estimated GFR 89; Glucose 95 mg/dL (80-115); Magnesium 2.2 mg/dL (1.6-2.6); Potassium 3.9 mmol/L (3.5-5.1); Sodium 134 mmol/L (136-145)
[2023-05-14 08:10] LABS: Platelet Count 129 10x3/uL (130-400)
[2023-05-14 08:14] LABS: Troponin I 0.743 ng/mL (< 0.028)
[2023-05-14] MEDS: Polyvinyl Alcohol 1.4%/Povidone 0.6% Opth Drops EA EYE SCH ×2 (09:23→21:26)
[2023-05-14] MEDS: Insulin Glargine 30 UNITS/0.3 ML VIAL SC SCH (09:23)
[2023-05-14] MEDS: Potassium Chloride 10 MEQ TAB PO SCH (09:24)
[2023-05-14] MEDS: Famotidine 20 MG TAB PO SCH ×2 (09:24→21:07)
[2023-05-14] MEDS: Carvedilol 6.25 MG TAB PO SCH ×2 (09:24→21:07)
[2023-05-14] MEDS: FLUoxetine HCl 20 MG CAP PO SCH (09:25)
[2023-05-14] MEDS: Hydrochlorothiazide 25 MG TAB PO SCH (09:25)
[2023-05-14 12:40] LABS: Vancomycin, Trough 9.7 ug/mL
[2023-05-14] MEDS: HumaLOG 300 UNITS/3 ML VIAL SC PRN ×2 (13:35→15:38)
[2023-05-15 04:33] LABS: #Eosinphils 0.3 thou/uL (0.0-0.7); #Monocytes 0.7 thou/uL (0.11-0.59); #Neutrophils 6.6 thou/uL (1.40-6.50); %Basophils 0.3 % (0.0-1.0); %Eosinophils 3.5 % (0.0-10.0); %Lymphocytes 18.2 % (21.0-51.0); %Monocytes 7.5 % (0.0-10.0); Hematocrit 32.1 % (36.0-47.0); Hemoglobin 10.8 g/dL (12.0-16.0); Mean Corpuscular HGB CONC 33.6 g/dL (32.0-36.0); Mean Corpuscular Hemoglobin 28.9 pg (27.0-31.0); Mean Corpuscular Volume 85.8 fl (78.0-98.0); Mean Platelet Volume 10.8 fL (7.4-10.4); Platelet Count 118 10x3/uL (130-400); RBC Distribution Width 14.9 % (11.5-14.5); Red Blood Cell (RBC) Count 3.74 mill/uL (4.20-5.40); White Blood Cell (WBC) Count 9.4 10x3/uL (4.8-10.8)
[2023-05-15 04:58] LABS: Anion Gap 8 mmol/L (10-20); BUN (Urea Nitrogen) 17 mg/dL (9.8-20.1); Calc. Creatinine Clearance 76 mL/min (70-130); Calcium 8.3 mg/dL (7.8-10.44); Carbon Dioxide 31 mmol/L (23-31); Chloride 99 mmol/L (98-107); Estimated GFR 91; Glucose 90 mg/dL (80-115); Potassium 3.6 mmol/L (3.5-5.1); Sodium 134 mmol/L (136-145)
[2023-05-15] MEDS: Meropenem 1 GM in Sodium Chloride 0.9% 100 ML IVPB SCH ×2 (05:57→15:14)
[2023-05-15] MEDS: Levothyroxine Sodium 125 MCG TAB PO SCH (05:57)
[2023-05-15] MEDS ORDERED: Magnesium 2 GM/50 ML(in water) 2 GM in Premix 1 BAG IVPB SCH (08:00)
[2023-05-15] MEDS: Carvedilol 6.25 MG TAB PO SCH (09:05)
[2023-05-15] MEDS: Insulin Glargine 30 UNITS/0.3 ML VIAL SC SCH (09:06)
[2023-05-15] MEDS: Potassium Chloride 10 MEQ TAB PO SCH (09:06)
[2023-05-15] MEDS: FLUoxetine HCl 20 MG CAP PO SCH (09:06)
[2023-05-15] MEDS: Famotidine 20 MG TAB PO SCH (09:06)
[2023-05-15] MEDS: Hydrochlorothiazide 25 MG TAB PO SCH (09:06)
[2023-05-15] MEDS: Polyvinyl Alcohol 1.4%/Povidone 0.6% Opth Drops EA EYE SCH (11:00)
[2023-05-15 11:08] VITALS: TEMP 98
[2023-05-15 15:09] VITALS: BP 154/67
[2023-05-16 13:46] LABS: Actual Bicarbonate (HCO3v) 6.1 mEq/L (22-28)
== END 2023-05-15 15:36 | disposition home or self-care (01) | DRG 871 ==
LOC: EDBD → EDUNIT# 13:46 → SUATTDRO 13:46 → ERS 13:46 → IMCU/EMU 15:57 → 2NO 05-14 14:59
PROVIDERS: ADMIT Family Medicine; ATTEND Internal Medicine
PROC: 4A043R1 Measurement of Venous Saturation, Peripheral, Percutaneous Approach (ICD-10-PCS; principal; 2023-05-11)
PROC: 3E03329 Introduction of Other Anti-infective into Peripheral Vein, Percutaneous Approach (ICD-10-PCS; 2023-05-11)
DX: A41.02 Sepsis due to Methicillin resistant Staphylococcus aureus (principal); E10.10 Type 1 diabetes mellitus with ketoacidosis without coma; R65.21 Severe sepsis with septic shock; G93.41 Metabolic encephalopathy; I21.A1 Myocardial infarction type 2; M46.26 Osteomyelitis of vertebra, lumbar region; N17.9 Acute kidney failure, unspecified; N39.0 Urinary tract infection, site not specified; Z66 Do not resuscitate; F03.90 Unspecified dementia, unspecified severity, without behavioral disturbance, psychotic disturbance, mood disturbance, and anxiety; E10.65 Type 1 diabetes mellitus with hyperglycemia; E03.9 Hypothyroidism, unspecified; I10 Essential (primary) hypertension; E87.5 Hyperkalemia; R77.8 Other specified abnormalities of plasma proteins; Z88.2 Allergy status to sulfonamides; Z88.8 Allergy status to other drugs, medicaments and biological substances; Z79.890 Hormone replacement therapy; Z79.899 Other long term (current) drug therapy; Z87.891 Personal history of nicotine dependence; Z11.52 Encounter for screening for COVID-19; Z90.710 Acquired absence of both cervix and uterus; Z90.89 Acquired absence of other organs; Z87.81 Personal history of (healed) traumatic fracture; Z98.890 Other specified postprocedural states; Z82.49 Family history of ischemic heart disease and other diseases of the circulatory system; D63.8 Anemia in other chronic diseases classified elsewhere; E86.1 Hypovolemia
CPT/HCPCS: 36415; 36416; 51701; 70450; 71045; 74176; 80048; 80053; 80061; 80076; 80202; 80306; 81001; 82010; 82550; 82607; 82805; 83036; 83605; 83690; 83735; 84100; 84145; 84443; 84484; 85025; 85610; 85730; 87040; 87086; 93005; 93010; 94760; 96361; 96365; 96366; 96368; 96375; J0696; J1650; J1815; J2185; J2405; J3370; J3370-JW; J3475; J3480; J3490; S0028

== ENCOUNTER 2023-06-21 19:00 | Inpatient (IN) | payer MEDICARE, BC ==
[2023-06-21] MEDS ORDERED: Meropenem 1 GM in Sodium Chloride 0.9% 100 ML IVPB SCH (20:45)
[2023-06-21] MEDS ORDERED: Vancomycin (BATCH) 1.5 GM in Premix 1 BAG IVPB SCH (20:45)
[2023-06-21 20:49] LABS: Hematocrit 32.2 % (36.0-47.0); Hemoglobin 10.3 g/dL (12.0-16.0); Manual Diff?? YES; Mean Corpuscular Hemoglobin 30.6 pg (27.0-31.0); Mean Corpuscular Volume 95.5 fl (78.0-98.0); Platelet Count 266 10x3/uL (130-400); RBC Distribution Width 12.9 % (11.5-14.5); Red Blood Cell (RBC) Count 3.37 mill/uL (4.20-5.40); White Blood Cell (WBC) Count 28.5 10x3/uL (4.8-10.8)
[2023-06-21 21:01] LABS: Base Excess -26.1 mEq/L (-2.0 to +3.0); Calcium, Ionized (venous) 1.14 mmol/L (1.16-1.32); Chloride (VBG) 91 mmol/L (98-106); Hematocrit-VBG 33 % (36.0-47.0); Hemoglobin (Hb) 11.3 g/dL (11.7-16.1); Potassium (VBG) 5.31 mmol/L (3.70-5.30); Sodium 133 mmol/L (133-146)
[2023-06-21 21:02] LABS: Actual Bicarbonate (HCO3v) 4.9 mEq/L (22-28); pH (venous) 6.936 (7.32-7.43)
[2023-06-21 21:03] LABS: Delete Auto Diff?? YES
[2023-06-21 21:10] LABS: Phosphorus 8.7 mg/dL (2.3-4.7)
[2023-06-21 21:18] LABS: Acetaminophen Less than 10 mcg/mL (10.0-30.0); Alcohol Less than 10.0 mg/dL (Less than 10); Lipase 28 U/L (8-78); Magnesium 2.1 mg/dL (1.6-2.6); Salicylate Less than 8.0 mg/dL (15.0-30.0)
[2023-06-21 21:22] LABS: ALT (SGPT) 14 U/L (8-55); AST (SGOT) 38 U/L (5-34); Albumin 3.5 g/dL (3.4-4.8); Alkaline Phosphatase 122 U/L (40-110); BUN (Urea Nitrogen) 56 mg/dL (9.8-20.1); Bilirubin, Total 1.1 mg/dL (0.2-1.2); Calc. Creatinine Clearance 0 mL/min (70-130); Carbon Dioxide Less than 8 mmol/L (23-31); Chloride 92 mmol/L (98-107); Estimated GFR 17; Globulin 2.3 g/dL (2.4-3.5); Glucose 849 mg/dL (80-115); Protein, Total 5.8 g/dL (5.8-8.1); Sodium 129 mmol/L (136-145); Troponin I 6.683 ng/mL (< 0.028)
[2023-06-21] MEDS ORDERED: Norepinephrine 4 MG/4 ML VIAL ONE (21:27)
[2023-06-21] MEDS ORDERED: Sodium Chloride 0.9% 250 ML 250 ML ONE (21:27)
[2023-06-21] MEDS ORDERED: NOREPINEPHRINE 8 MG/250 ML-D5W 250 ML ONE (21:30)
[2023-06-21 21:43] LABS: Anisocytosis SLIGHT = 6-15 cells HPF (0-5); Band 9 % (5-11); Burr Cells MODERATE= 6-15 cells HPF (0-1); CellaVision Operator ID LAB.JMM; Elliptocytes SLIGHT = 2-5 cells HPF (0-1); Eosinophils 1 % (0-10); Lymphocytes 3 % (21-51); Macrocytosis SLIGHT = 6-15 cells HPF (0-5); Monocytes 4 % (0-10); Neutrophil 84 % (42-75); Platelet Adequacy Comment Platelets Normal; Poikilocytosis SLIGHT = 6-15 cells HPF (0-5); Smudge Cells 18.3 %; Total Cell Count 104
[2023-06-21] MEDS ORDERED: Norepinephrine 8 MG in Sodium Chloride 0.9% 250 ML 242 ML IVPB PRN (21:45)
[2023-06-21] MEDS ORDERED: INSULIN REGULAR IN 0.9 % NACL 100 UNITS/100 ML BAG ONE (22:24)
[2023-06-21] MEDS ORDERED: HumaLOG 300 UNITS/3 ML VIAL ONE (22:28)
[2023-06-21] MEDS ORDERED: NS 0.9% w/ 20 MEQ KCL 1,000 ML ONE (22:29)
[2023-06-21 23:00] LABS: INR-International Normal Ratio 1.5; PTT 33.3 sec (22.9-36.1); Prothrombin Time 18.7 sec (12.0-14.7)
[2023-06-22] MEDS ORDERED: Dextrose 5 %-0.45 % NaCl 1,000 ML IV PRN (00:01)
[2023-06-22] MEDS ORDERED: Electrolyte Replacement Protocol 1 EACH IVPB PRN (00:01)
[2023-06-22] MEDS ORDERED: NS 0.9% w/ 20 MEQ KCL 1,000 ML IV PRN (00:01)
[2023-06-22] MEDS ORDERED: Sodium Chloride 0.9% 1,000 ML IV PRN ×4 (00:01)
[2023-06-22 00:10] LABS: Lactic Acid 4.4 mmol/L (0.5-2.2)
[2023-06-22] MEDS ORDERED: NOREPINEPHRINE 8 MG/250 ML-D5W 250 ML IVPB SCH (00:15)
[2023-06-22 00:38] LABS: BUN (Urea Nitrogen) 58 mg/dL (9.8-20.1); Calc. Creatinine Clearance 0 mL/min (70-130); Calcium 7.8 mg/dL (7.8-10.44); Chloride 98 mmol/L (98-107); Estimated GFR 17; Potassium 4.8 mmol/L (3.5-5.1); Sodium 132 mmol/L (136-145)
[2023-06-22 00:51] LABS: Carbon Dioxide Less than 8 mmol/L (23-31); Glucose 793 mg/dL (80-115)
[2023-06-22 00:55] LABS: Amphetamine Not Detected (NotDetected); Barbiturates Screen Not Detected (NotDetected); Benzodiazepine Screen Not Detected (NotDetected); Cocaine Metabolite Screen Not Detected (NotDetected); Methadone Not Detected (NotDetected); Methamphetamine Not Detected (NotDetected); Opiate Screen Not Detected (NotDetected); Oxycodone Screen Not Detected (NotDetected); Phencyclidine (PCP) Not Detected (NotDetected); THC/Cannabinoid Screen Not Detected (NotDetected); Tricyclic Screen Not Detected (NotDetected)
[2023-06-22] MEDS: Heparin 10,000 UNITS/ 10 ML VIAL SLOW IVP SCH ×2 (01:23→20:11)
[2023-06-22] MEDS: Heparin 25,000 units/D5W 500 ML IVPB SCH (01:24)
[2023-06-22 01:48] LABS: Bilirubin Negative (Negative); Blood, Urine 1+ (Negative); CAUTI Indications for Culture Alt mental st,lethar; Clarity Turbid (Clear); Glucose, Urine (Dipstick) Greater than 1000 mg/dL (Negative); Ketone, Urine Trace mg/dL (Negative); Leukocyte 250 Leu/uL (Negative); Nitrite Negative (Negative); Protein, Urine (Dipstick) 30 mg/dL (Neg-Trace); Specific Gravity, Urine 1.013 (1.002-1.036); Squamous Epithelial 0-3 HPF (0-3); Urobilinogen Normal mg/dL (Less than 2); Yeast-Budding 2+ HPF (None Seen)
[2023-06-22 01:53] LABS: Bacteria/HPF 1+ HPF (None Seen); Urine Culture Reflex Yes Yes
[2023-06-22 02:20] LABS: Hematocrit 29.4 % (36.0-47.0); Hemoglobin 9.6 g/dL (12.0-16.0); Platelet Count 251 10x3/uL (130-400)
[2023-06-22 02:40] LABS: Glucose 709 mg/dL (80-115)
[2023-06-22 02:59] LABS: Troponin I 21.441 ng/mL (< 0.028)
[2023-06-22 04:19] LABS: Glucose 644 mg/dL (80-115)
[2023-06-22] MEDS: NS 0.9% w/ 20 MEQ KCL 1,000 ML IV PRN ×2 (05:10→09:18)
[2023-06-22] MEDS: Meropenem 500 MG in Sodium Chloride 0.9% 100 ML IVPB SCH ×2 (05:19→17:56)
[2023-06-22 05:25] LABS: Anion Gap 23 mmol/L (10-20); BUN (Urea Nitrogen) 56 mg/dL (9.8-20.1); Calc. Creatinine Clearance 19 mL/min (70-130); Calcium 7.7 mg/dL (7.8-10.44); Carbon Dioxide 10 mmol/L (23-31); Chloride 105 mmol/L (98-107); Estimated GFR 19; Potassium 4.1 mmol/L (3.5-5.1); Sodium 134 mmol/L (136-145)
[2023-06-22 05:29] LABS: Glucose 591 mg/dL (80-115)
[2023-06-22] MEDS ORDERED: Acetaminophen 325 MG TAB PO PRN (08:43)
[2023-06-22 08:44] LABS: Anion Gap 16 mmol/L (10-20); BUN (Urea Nitrogen) 56 mg/dL (9.8-20.1); Calc. Creatinine Clearance 23 mL/min (70-130); Calcium 7.9 mg/dL (7.8-10.44); Carbon Dioxide 15 mmol/L (23-31); Chloride 109 mmol/L (98-107); Estimated GFR 24; Potassium 3.8 mmol/L (3.5-5.1); Sodium 136 mmol/L (136-145)
[2023-06-22 08:51] LABS: Glucose 443 mg/dL (80-115)
[2023-06-22 09:10] LABS: PTT Greater than 250.0 sec (22.9-36.1)
[2023-06-22] MEDS: HUMULIN R 100 UNITS in Sodium Chloride 0.9% 100 ML IVPB SCH ×2 (11:15→14:57)
[2023-06-22] MEDS: D5 1/2 NS w/20 mEq KCL 1,000 ML IV PRN ×2 (11:25→16:10)
[2023-06-22 12:29] LABS: Lactic Acid 3.7 mmol/L (0.5-2.2)
[2023-06-22 12:32] LABS: Anion Gap 13 mmol/L (10-20); BUN (Urea Nitrogen) 53 mg/dL (9.8-20.1); Calc. Creatinine Clearance 23 mL/min (70-130); Carbon Dioxide 17 mmol/L (23-31); Chloride 113 mmol/L (98-107); Estimated GFR 24; Glucose 247 mg/dL (80-115); Potassium 3.7 mmol/L (3.5-5.1); Sodium 139 mmol/L (136-145)
[2023-06-22] MEDS: Dextrose 50% Abboject 50 ML SYRINGE SLOW IVP PRN ×2 (16:11→17:56)
[2023-06-22] MEDS ORDERED: Aspirin 81 mg Enteric Coated Tablet PO SCH (16:15)
[2023-06-22 18:18] LABS: Anion Gap 13 mmol/L (10-20); BUN (Urea Nitrogen) 47 mg/dL (9.8-20.1); Calc. Creatinine Clearance 30 mL/min (70-130); Calcium 8.1 mg/dL (7.8-10.44); Carbon Dioxide 17 mmol/L (23-31); Chloride 113 mmol/L (98-107); Estimated GFR 32; Glucose 118 mg/dL (80-115); Potassium 3.7 mmol/L (3.5-5.1); Sodium 139 mmol/L (136-145)
[2023-06-22] MEDS ORDERED: Dextrose 5% in Water 1,000 ML IV PRN (19:17)
[2023-06-22] MEDS ORDERED: Glucagon 1 MG/ML KIT IM PRN (19:17)
[2023-06-22] MEDS ORDERED: Insulin Glargine 30 UNITS/0.3 ML VIAL SC SCH (19:30)
[2023-06-22] MEDS: Lactated Ringer's 1,000 ML IV SCH (19:36)
[2023-06-22 20:41] LABS: Anion Gap 13 mmol/L (10-20); BUN (Urea Nitrogen) 46 mg/dL (9.8-20.1); Calc. Creatinine Clearance 30 mL/min (70-130); Calcium 7.9 mg/dL (7.8-10.44); Carbon Dioxide 16 mmol/L (23-31); Chloride 113 mmol/L (98-107); Estimated GFR 33; Glucose 124 mg/dL (80-115); Potassium 3.8 mmol/L (3.5-5.1); Sodium 138 mmol/L (136-145)
[2023-06-23 01:08] LABS: BUN (Urea Nitrogen) 45 mg/dL (9.8-20.1); Calc. Creatinine Clearance 32 mL/min (70-130); Calcium 8.3 mg/dL (7.8-10.44); Carbon Dioxide 18 mmol/L (23-31); Estimated GFR 36; Glucose 158 mg/dL (80-115)
[2023-06-23 01:16] LABS: Anion Gap 16 mmol/L (10-20); Chloride 112 mmol/L (98-107); Potassium 4.6 mmol/L (3.5-5.1); Sodium 140 mmol/L (136-145)
[2023-06-23 02:27] LABS: PTT 156.7 sec (22.9-36.1)
[2023-06-23 03:54] LABS: Hematocrit 30.7 % (36.0-47.0); Hemoglobin 10.5 g/dL (12.0-16.0); Mean Corpuscular HGB CONC 34.2 g/dL (32.0-36.0); Mean Corpuscular Hemoglobin 29.4 pg (27.0-31.0); Mean Platelet Volume 10.6 fL (7.4-10.4); Platelet Count 194 10x3/uL (130-400); RBC Distribution Width 13.5 % (11.5-14.5); Red Blood Cell (RBC) Count 3.57 mill/uL (4.20-5.40); White Blood Cell (WBC) Count 29.5 10x3/uL (4.8-10.8)
[2023-06-23] MEDS: Lactated Ringer's 1,000 ML IV SCH ×3 (03:55→20:24)
[2023-06-23 04:22] LABS: Anion Gap 15 mmol/L (10-20); BUN (Urea Nitrogen) 44 mg/dL (9.8-20.1); Calc. Creatinine Clearance 35 mL/min (70-130); Calcium 8.1 mg/dL (7.8-10.44); Carbon Dioxide 16 mmol/L (23-31); Chloride 111 mmol/L (98-107); Estimated GFR 39; Glucose 197 mg/dL (80-115); Potassium 4.1 mmol/L (3.5-5.1); Sodium 138 mmol/L (136-145)
[2023-06-23 04:32] LABS: Lactic Acid 1.9 mmol/L (0.5-2.2)
[2023-06-23] MEDS: Meropenem 500 MG in Sodium Chloride 0.9% 100 ML IVPB SCH (05:43)
[2023-06-23] MEDS: Aspirin 81 mg Enteric Coated Tablet PO SCH (08:28)
[2023-06-23] MEDS: Insulin Glargine 30 UNITS/0.3 ML VIAL SC SCH (08:29)
[2023-06-23] MEDS: Sodium Bicarbonate 70 MEQ in Sodium Chloride 0.45% 1,000 ML IV SCH ×2 (11:09→20:57)
[2023-06-23] MEDS ORDERED: hydrALAZINE 20 MG/ML VIAL SLOW IVP PRN (11:47)
[2023-06-23] MEDS: Heparin 10,000 UNITS/ 10 ML VIAL SLOW IVP SCH ×2 (12:16→18:47)
[2023-06-23] MEDS: Meropenem 1 GM in Sodium Chloride 0.9% 100 ML IVPB SCH (17:57)
[2023-06-23] MEDS: HumaLOG 300 UNITS/3 ML VIAL SC PRN (20:55)
[2023-06-23] MEDS: Heparin 25,000 units/D5W 500 ML IVPB SCH (23:41)
[2023-06-24 00:19] LABS: Hematocrit 29.2 % (36.0-47.0); Platelet Count 166 10x3/uL (130-400)
[2023-06-24] MEDS: Lactated Ringer's 1,000 ML IV SCH (02:33)
[2023-06-24 04:36] LABS: Hemoglobin 9.5 g/dL (12.0-16.0); Mean Corpuscular HGB CONC 33.9 g/dL (32.0-36.0); Mean Corpuscular Hemoglobin 29.4 pg (27.0-31.0); Mean Corpuscular Volume 86.7 fl (78.0-98.0); Mean Platelet Volume 10.7 fL (7.4-10.4); Platelet Count 132 10x3/uL (130-400); RBC Distribution Width 13.7 % (11.5-14.5); Red Blood Cell (RBC) Count 3.23 mill/uL (4.20-5.40); White Blood Cell (WBC) Count 13.6 10x3/uL (4.8-10.8)
[2023-06-24 05:18] LABS: Phosphorus 1.7 mg/dL (2.3-4.7)
[2023-06-24 05:21] LABS: Anion Gap 11 mmol/L (10-20); BUN (Urea Nitrogen) 25 mg/dL (9.8-20.1); Calc. Creatinine Clearance 63 mL/min (70-130); Calcium 8.1 mg/dL (7.8-10.44); Carbon Dioxide 25 mmol/L (23-31); Chloride 107 mmol/L (98-107); Estimated GFR 72; Glucose 135 mg/dL (80-115); Magnesium 1.5 mg/dL (1.6-2.6); Potassium 3.3 mmol/L (3.5-5.1); Sodium 140 mmol/L (136-145)
[2023-06-24] MEDS: Meropenem 1 GM in Sodium Chloride 0.9% 100 ML IVPB SCH ×3 (05:39→21:32)
[2023-06-24] MEDS: Sodium Bicarbonate 70 MEQ in Sodium Chloride 0.45% 1,000 ML IV SCH (07:36)
[2023-06-24] MEDS: Aspirin 81 mg Enteric Coated Tablet PO SCH (07:59)
[2023-06-24] MEDS: Insulin Glargine 30 UNITS/0.3 ML VIAL SC SCH (07:59)
[2023-06-24] MEDS ORDERED: Potassium Phosphate 30 MMOL in Sodium Chloride 0.9% 250 ML 250 ML IVPB SCH (08:00)
[2023-06-24] MEDS ORDERED: Magnesium 2 GM/50 ML(in water) 2 GM in Premix 1 BAG IVPB SCH (08:00)
[2023-06-24] MEDS: HumaLOG 300 UNITS/3 ML VIAL SC PRN ×2 (12:15→16:23)
[2023-06-25 02:29] LABS: Hematocrit 26.6 % (36.0-47.0); Hemoglobin 9.1 g/dL (12.0-16.0); Mean Corpuscular HGB CONC 34.2 g/dL (32.0-36.0); Mean Corpuscular Hemoglobin 29.9 pg (27.0-31.0); Mean Corpuscular Volume 87.5 fl (78.0-98.0); Mean Platelet Volume 10.4 fL (7.4-10.4); Platelet Count 111 10x3/uL (130-400); RBC Distribution Width 13.7 % (11.5-14.5); Red Blood Cell (RBC) Count 3.04 mill/uL (4.20-5.40); White Blood Cell (WBC) Count 8.6 10x3/uL (4.8-10.8)
[2023-06-25 03:09] LABS: Anion Gap 12 mmol/L (10-20); BUN (Urea Nitrogen) 20 mg/dL (9.8-20.1); Calc. Creatinine Clearance 70 mL/min (70-130); Calcium 7.9 mg/dL (7.8-10.44); Carbon Dioxide 22 mmol/L (23-31); Chloride 106 mmol/L (98-107); Estimated GFR 80; Glucose 236 mg/dL (80-115); Magnesium 1.8 mg/dL (1.6-2.6); Phosphorus 1.8 mg/dL (2.3-4.7); Potassium 3.6 mmol/L (3.5-5.1); Sodium 136 mmol/L (136-145)
[2023-06-25] MEDS: HumaLOG 300 UNITS/3 ML VIAL SC PRN ×3 (05:08→20:06)
[2023-06-25] MEDS ORDERED: Magnesium 2 GM/50 ML(in water) 2 GM in Premix 1 BAG IVPB SCH ×2 (06:00→08:00)
[2023-06-25] MEDS: Meropenem 1 GM in Sodium Chloride 0.9% 100 ML IVPB SCH ×3 (06:09→21:36)
[2023-06-25] MEDS: PHOS-NAK 1 PKT PACK PO SCH ×2 (09:19→12:41)
[2023-06-25] MEDS: NIFEdipine XL 30 MG ER.TAB PO SCH (09:19)
[2023-06-25] MEDS: Aspirin 81 mg Enteric Coated Tablet PO SCH (09:20)
[2023-06-25] MEDS: Insulin Glargine 30 UNITS/0.3 ML VIAL SC SCH (09:20)
[2023-06-25 18:04] LABS: Prothrombin Time 13.9 sec (12.0-14.7)
[2023-06-25 18:05] LABS: PTT 66.4 sec (22.9-36.1)
[2023-06-26] MEDS: Meropenem 1 GM in Sodium Chloride 0.9% 100 ML IVPB SCH ×2 (05:59→14:17)
[2023-06-26] MEDS: NIFEdipine XL 30 MG ER.TAB PO SCH (08:31)
[2023-06-26] MEDS: Insulin Glargine 30 UNITS/0.3 ML VIAL SC SCH (08:32)
[2023-06-26] MEDS: Aspirin 81 mg Enteric Coated Tablet PO SCH (08:32)
[2023-06-26 09:53] LABS: #Eosinphils 0.3 thou/uL (0.0-0.7); #Monocytes 0.9 thou/uL (0.11-0.59); %Basophils 0.3 % (0.0-1.0); %Lymphocytes 7.7 % (21.0-51.0); %Monocytes 8.9 % (0.0-10.0); %Neutrophils 79.9 % (42.0-75.0); Mean Corpuscular HGB CONC 33.3 g/dL (32.0-36.0); Mean Corpuscular Hemoglobin 29.8 pg (27.0-31.0); Mean Corpuscular Volume 89.3 fl (78.0-98.0); Mean Platelet Volume 10.7 fL (7.4-10.4); Platelet Count 157 10x3/uL (130-400); RBC Distribution Width 13.2 % (11.5-14.5); Red Blood Cell (RBC) Count 3.36 mill/uL (4.20-5.40)
[2023-06-26 10:13] LABS: Anion Gap 11 mmol/L (10-20); BUN (Urea Nitrogen) 14 mg/dL (9.8-20.1); Calc. Creatinine Clearance 75 mL/min (70-130); Calcium 8.3 mg/dL (7.8-10.44); Carbon Dioxide 25 mmol/L (23-31); Chloride 103 mmol/L (98-107); Estimated GFR 88; Glucose 264 mg/dL (80-115); Phosphorus 1.8 mg/dL (2.3-4.7); Potassium 3.9 mmol/L (3.5-5.1); Sodium 135 mmol/L (136-145)
[2023-06-26] MEDS ORDERED: Magnesium 2 GM/50 ML(in water) 2 GM in Premix 1 BAG IVPB SCH (10:30)
[2023-06-26] MEDS: PHOS-NAK 1 PKT PACK PO SCH ×2 (11:10→14:17)
[2023-06-26] MEDS ORDERED: Ondansetron PF 4 MG/2 ML Vial IVP PRN (14:19)
[2023-06-26] MEDS ORDERED: Metoprolol Tartrate 5 MG/5 ML VIAL IVP PRN (14:46)
[2023-06-26 14:49] VITALS: BMI 24.2
[2023-06-27] MEDS ORDERED: traZODone HCl 50 MG TAB PO SCH ×2 (00:45→20:45)
[2023-06-27] MEDS: Insulin Glargine 30 UNITS/0.3 ML VIAL SC SCH (08:53)
[2023-06-27] MEDS: NIFEdipine XL 30 MG ER.TAB PO SCH (08:53)
[2023-06-27] MEDS: Aspirin 81 mg Enteric Coated Tablet PO SCH (08:57)
[2023-06-28] MEDS ORDERED: Levothyroxine Sodium 100 MCG TAB PO SCH (06:00)
[2023-06-28 08:31] VITALS: BP 169/71; TEMP 97.9
[2023-06-28] MEDS: NIFEdipine XL 30 MG ER.TAB PO SCH (08:41)
[2023-06-28] MEDS: Insulin Glargine 30 UNITS/0.3 ML VIAL SC SCH (08:42)
[2023-06-28] MEDS: Aspirin 81 mg Enteric Coated Tablet PO SCH (08:42)
[2023-06-28] MEDS ORDERED: FLUoxetine HCl 20 MG CAP PO SCH (09:00)
== END 2023-06-28 12:15 | disposition home or self-care (01) | DRG 871 ==
LOC: ERS 19:00 → CCU 22:57 → IMCU/EMU 06-22 19:14 → T4-A 06-24 17:44
PROVIDERS: ADMIT Student in an Organized Health Care Education/Training Program; ATTEND Family Medicine
PROC: 4A043R1 Measurement of Venous Saturation, Peripheral, Percutaneous Approach (ICD-10-PCS; principal; 2023-06-21)
PROC: 3E03329 Introduction of Other Anti-infective into Peripheral Vein, Percutaneous Approach (ICD-10-PCS; 2023-06-21)
PROC: 3E033XZ Introduction of Vasopressor into Peripheral Vein, Percutaneous Approach (ICD-10-PCS; 2023-06-21)
DX: A41.9 Sepsis, unspecified organism (principal); E10.10 Type 1 diabetes mellitus with ketoacidosis without coma; R65.21 Severe sepsis with septic shock; I21.4 Non-ST elevation (NSTEMI) myocardial infarction; G93.41 Metabolic encephalopathy; N17.9 Acute kidney failure, unspecified; N39.0 Urinary tract infection, site not specified; I42.0 Dilated cardiomyopathy; Z88.2 Allergy status to sulfonamides; Z88.8 Allergy status to other drugs, medicaments and biological substances; Z79.899 Other long term (current) drug therapy; E03.9 Hypothyroidism, unspecified; Z98.890 Other specified postprocedural states; F03.90 Unspecified dementia, unspecified severity, without behavioral disturbance, psychotic disturbance, mood disturbance, and anxiety; Z90.89 Acquired absence of other organs; Z79.01 Long term (current) use of anticoagulants; Z66 Do not resuscitate; N18.9 Chronic kidney disease, unspecified; I12.9 Hypertensive chronic kidney disease with stage 1 through stage 4 chronic kidney disease, or unspecified chronic kidney disease
CPT/HCPCS: 36415; 36416; 36556; 70450; 80048; 80053; 80306; 80307; 81001; 82010; 82805; 83605; 83690; 83735; 83930; 84100; 84145; 84484; 85014; 85018; 85025; 85027; 85049; 85610; 85730; 87040; 87077; 87086; 87149; 93005; 93010; 93306; 94760; 96374; 96375; J0360; J1644; J1650; J1815; J2185; J2405; J3370; J3475; J3480; J3490; J7030; J7042; J7050; J7120; J7999

== ENCOUNTER 2023-09-09 13:32 | Inpatient (IN) | payer MEDICARE, BC ==
[2023-09-09 14:09] LABS: #Monocytes 0.8 thou/uL (0.11-0.59); #Neutrophils 14.2 thou/uL (1.40-6.50); %Basophils 0.1 % (0.0-1.0); %Lymphocytes 5.9 % (21.0-51.0); %Monocytes 4.8 % (0.0-10.0); %Neutrophils 88.5 % (42.0-75.0); Hematocrit 29.3 % (36.0-47.0); Mean Corpuscular HGB CONC 30.7 g/dL (32.0-36.0); Mean Platelet Volume 11.4 fL (7.4-10.4); Platelet Count 212 10x3/uL (130-400); RBC Distribution Width 13.2 % (11.5-14.5); Red Blood Cell (RBC) Count 3.33 mill/uL (4.20-5.40)
[2023-09-09 14:23] LABS: INR-International Normal Ratio 1.2; PTT 29.9 sec (22.9-36.1); Prothrombin Time 15.2 sec (12.0-14.7)
[2023-09-09 14:37] LABS: ALT (SGPT) 27 U/L (8-55); AST (SGOT) 70 U/L (5-34); Albumin 3.7 g/dL (3.4-4.8); Alkaline Phosphatase 144 U/L (40-110); BUN (Urea Nitrogen) 64 mg/dL (9.8-20.1); Bilirubin, Total 0.7 mg/dL (0.2-1.2); Calc. Creatinine Clearance 0 mL/min (70-130); Calcium 8.6 mg/dL (7.8-10.44); Chloride 84 mmol/L (98-107); Estimated GFR 15; Globulin 2.7 g/dL (2.4-3.5); Magnesium 2.4 mg/dL (1.6-2.6); Protein, Total 6.4 g/dL (5.8-8.1); Sodium 121 mmol/L (136-145)
[2023-09-09 14:43] LABS: Analyzer IN Cardio ER; Base Excess (BEa) -18.6 mEq/L (-2.0 to +3.0); CO2 Tension 33.8 mmHg (35.0-45.0); Calcium, Ionized (arterial) 1.05 mmol/L (1.12-1.30); Carboxyhemoglobin (COHb) 0.2 gm% (0.0-3.0); Hematocrit-ABG 28 % (36.0-47.0); Hemoglobin (Hb) 9.4 g/dL (12.0-16.0); Potassium - ABG Lab 5.91 mmol/L (3.70-5.30)
[2023-09-09 14:45] LABS: Carbon Dioxide Less than 8 mmol/L (23-31); Critical Call Chem Troponin I NUR.DD11@1444; Critical Call Chemistry NUR.DD11@1444; Potassium 6.9 mmol/L (3.5-5.1); Troponin I 20.108 ng/mL (< 0.028)
[2023-09-09 14:47] LABS: pH, Arterial 7.089 (7.35-7.45)
[2023-09-09 14:49] LABS: Puncture Site RBA
[2023-09-09] MEDS ORDERED: Sodium Chloride 0.9% 100 ML ONE (14:56)
[2023-09-09] MEDS ORDERED: Cefepime 2 GM VIAL ONE (14:56)
[2023-09-09] MEDS ORDERED: Aspirin 300 MG Suppository ONE (14:56)
[2023-09-09] MEDS ORDERED: Vancomycin 1 GM/200 ML (FROZEN) BAG ONE (14:57)
[2023-09-09] MEDS ORDERED: Hydrocortisone Sod Succ/PF 100 mg/2 ml Vial ONE (14:57)
[2023-09-09] MEDS ORDERED: INSULIN REGULAR IN 0.9 % NACL 100 UNITS/100 ML BAG ONE (14:57)
[2023-09-09] MEDS ORDERED: Sodium Bicarb 50 mEq/50 ML VIAL ONE (15:06)
[2023-09-09 15:12] LABS: Glucose 1150 mg/dL (80-115)
[2023-09-09] MEDS ORDERED: NOREPINEPHRINE 8 MG/250 ML-D5W 250 ML ONE (15:47)
[2023-09-09 15:53] LABS: Bacteria/HPF None Seen HPF (None Seen); Bilirubin Negative (Negative); Blood, Urine Negative (Negative); CAUTI Indications for Culture Alt mental st,lethar; Clarity Clear (Clear); Glucose, Urine (Dipstick) Greater than 1000 mg/dL (Negative); Ketone, Urine Trace mg/dL (Negative); Leukocyte Negative Leu/uL (Negative); Nitrite Negative (Negative); Protein, Urine (Dipstick) Negative (Neg-Trace); RBC/HPF 0-3 HPF (0-3); Specific Gravity, Urine 1.019 (1.002-1.036); Squamous Epithelial None Seen HPF (0-3); Urobilinogen Normal mg/dL (Less than 2); WBC/HPF 0-3 HPF (0-3)
[2023-09-09] MEDS ORDERED: Sodium Chloride 0.9% 1,000 ML IV PRN ×4 (15:53)
[2023-09-09] MEDS ORDERED: NS 0.9% w/ 20 MEQ KCL 1,000 ML IV PRN (15:53)
[2023-09-09] MEDS ORDERED: NOREPINEPHRINE 8 MG/250 ML-D5W 250 ML IVPB PRN (15:53)
[2023-09-09] MEDS ORDERED: Dextrose 50% Abboject 50 ML SYRINGE SLOW IVP PRN (15:53)
[2023-09-09] MEDS ORDERED: Dextrose 5 %-0.45 % NaCl 1,000 ML IV PRN (15:53)
[2023-09-09] MEDS ORDERED: D5 1/2 NS w/20 mEq KCL 1,000 ML IV PRN (15:53)
[2023-09-09] MEDS ORDERED: Electrolyte Replacement Protocol 1 EACH IVPB PRN (15:53)
[2023-09-09 15:56] LABS: Urine Culture Reflex No No
[2023-09-09] MEDS ORDERED: HUMULIN R 100 UNITS in Sodium Chloride 0.9% 100 ML IVPB SCH (16:00)
[2023-09-09] MEDS: Sodium Bicarbonate 150 MEQ in Sterile Water 1,000 ML IV SCH (16:41)
[2023-09-09 16:57] LABS: BUN (Urea Nitrogen) 62 mg/dL (9.8-20.1); Calc. Creatinine Clearance 0 mL/min (70-130); Chloride 89 mmol/L (98-107); Estimated GFR 16; Sodium 124 mmol/L (136-145)
[2023-09-09 17:05] LABS: Carbon Dioxide Less than 8 mmol/L (23-31); Critical Call Chemistry ERS.JAN.1704; Glucose 1073 mg/dL (80-115)
[2023-09-09 19:37] LABS: Lactic Acid 2.8 mmol/L (0.5-2.2)
[2023-09-09 20:09] LABS: Anion Gap 28 mmol/L (10-20); BUN (Urea Nitrogen) 64 mg/dL (9.8-20.1); Calc. Creatinine Clearance 0 mL/min (70-130); Calcium 7.8 mg/dL (7.8-10.44); Carbon Dioxide 11 mmol/L (23-31); Chloride 94 mmol/L (98-107); Critical Call Chemistry ICU.RB@2008; Estimated GFR 17; Glucose 916 mg/dL (80-115); Sodium 128 mmol/L (136-145)
[2023-09-09] MEDS ORDERED: Vancomycin Dose by Levels Sliding Scale (Wt <71) FS SCH (21:45)
[2023-09-09] MEDS: Vancomycin 1 GM in Sodium Chloride 0.9% 250 ML 250 ML IVPB SCH (21:48)
[2023-09-09 22:33] LABS: Glucose 792 mg/dL (80-115)
[2023-09-09 22:33] LABS: Glucose 810 mg/dL (80-115)
[2023-09-09 23:04] LABS: Critical Call Chemistry ICU.RB @2302; Glucose 766 mg/dL (80-115)
[2023-09-10 00:54] LABS: Anion Gap 22 mmol/L (10-20); BUN (Urea Nitrogen) 61 mg/dL (9.8-20.1); Calc. Creatinine Clearance 19 mL/min (70-130); Calcium 7.9 mg/dL (7.8-10.44); Carbon Dioxide 17 mmol/L (23-31); Chloride 96 mmol/L (98-107); Estimated GFR 20; Potassium 3.8 mmol/L (3.5-5.1); Sodium 131 mmol/L (136-145)
[2023-09-10 00:56] LABS: Critical Call Chemistry ICU.RB @0053; Glucose 724 mg/dL (80-115)
[2023-09-10 01:36] LABS: Critical Call Chemistry ICU.RB @0135; Glucose 655 mg/dL (80-115)
[2023-09-10 03:22] LABS: Critical Call Chemistry ICU.RB; Glucose 543 mg/dL (80-115)
[2023-09-10 03:53] LABS: #Monocytes 1.2 thou/uL (0.11-0.59); #Neutrophils 19.4 thou/uL (1.40-6.50); %Basophils 0.1 % (0.0-1.0); %Lymphocytes 6.1 % (21.0-51.0); %Monocytes 5.4 % (0.0-10.0); %Neutrophils 87.5 % (42.0-75.0); Hematocrit 31.1 % (36.0-47.0); Hemoglobin 10.6 g/dL (12.0-16.0); Mean Corpuscular HGB CONC 34.1 g/dL (32.0-36.0); Mean Corpuscular Hemoglobin 26.4 pg (27.0-31.0); Mean Platelet Volume 10.9 fL (7.4-10.4); Platelet Count 225 10x3/uL (130-400); RBC Distribution Width 12.5 % (11.5-14.5); Red Blood Cell (RBC) Count 4.01 mill/uL (4.20-5.40); White Blood Cell (WBC) Count 22.2 10x3/uL (4.8-10.8)
[2023-09-10 04:05] LABS: Mean Corpuscular Volume 77.6 fl (78.0-98.0)
[2023-09-10 04:18] LABS: Anion Gap 18 mmol/L (10-20); BUN (Urea Nitrogen) 58 mg/dL (9.8-20.1); Calc. Creatinine Clearance 20 mL/min (70-130); Calcium 8.7 mg/dL (7.8-10.44); Carbon Dioxide 24 mmol/L (23-31); Chloride 98 mmol/L (98-107); Estimated GFR 21; Potassium 4.2 mmol/L (3.5-5.1); Sodium 136 mmol/L (136-145)
[2023-09-10 04:22] LABS: ALT (SGPT) 37 U/L (8-55); AST (SGOT) 86 U/L (5-34); Albumin 3.9 g/dL (3.4-4.8); Alkaline Phosphatase 137 U/L (40-110); Anion Gap 17 mmol/L (10-20); BUN (Urea Nitrogen) 60 mg/dL (9.8-20.1); Bilirubin, Total 0.7 mg/dL (0.2-1.2); Calc. Creatinine Clearance 20 mL/min (70-130); Calcium 8.6 mg/dL (7.8-10.44); Carbon Dioxide 24 mmol/L (23-31); Chloride 98 mmol/L (98-107); Estimated GFR 21; Globulin 2.6 g/dL (2.4-3.5); Potassium 4.2 mmol/L (3.5-5.1); Protein, Total 6.5 g/dL (5.8-8.1); Sodium 135 mmol/L (136-145)
[2023-09-10 04:29] LABS: Critical Call Chemistry ICU.RB @0428; Glucose 518 mg/dL (80-115); Glucose 520 mg/dL (80-115)
[2023-09-10] MEDS: NS 0.9% w/ 20 MEQ KCL 1,000 ML IV PRN (05:38)
[2023-09-10] MEDS ORDERED: Glucagon 1 MG/ML KIT IM PRN (07:41)
[2023-09-10 08:31] LABS: Anion Gap 17 mmol/L (10-20); BUN (Urea Nitrogen) 56 mg/dL (9.8-20.1); Calc. Creatinine Clearance 26 mL/min (70-130); Calcium 8.6 mg/dL (7.8-10.44); Carbon Dioxide 26 mmol/L (23-31); Chloride 100 mmol/L (98-107); Estimated GFR 28; Glucose 193 mg/dL (80-115); Potassium 3.5 mmol/L (3.5-5.1); Sodium 139 mmol/L (136-145)
[2023-09-10] MEDS: Pantoprazole 40 MG VIAL IVP SCH (08:31)
[2023-09-10] MEDS: Sodium Chloride 0.9% 1,000 ML IV SCH (08:31)
[2023-09-10] MEDS: Insulin Glargine 30 UNITS/0.3 ML VIAL SC SCH (08:31)
[2023-09-10 09:06] LABS: Magnesium 2.1 mg/dL (1.6-2.6)
[2023-09-10 09:43] LABS: Critical Call Chem Troponin I @DECREASING; Troponin I 16.631 ng/mL (< 0.028)
[2023-09-10 12:39] LABS: Vancomycin, Random 10.8 ug/mL (See Comment)
[2023-09-10] MEDS: Potassium Chloride 20 MEQ in Premix 1 BAG IVPB SCH ×2 (13:09→22:02)
[2023-09-10] MEDS: Vancomycin 1 GM in Premix 1 BAG IVPB SCH (13:10)
[2023-09-10] MEDS: Furosemide 40 MG (4 mL) VIAL SLOW IVP SCH (13:10)
[2023-09-10] MEDS: Dextrose 50% Abboject 50 ML SYRINGE SLOW IVP PRN (13:37)
[2023-09-10] MEDS: Cefepime 1 GM in Sodium Chloride 0.9% 100 ML IVPB SCH (14:56)
[2023-09-10] MEDS: Furosemide 40 MG (4 mL) VIAL ONE (14:56)
[2023-09-10] MEDS: Dextrose 5% in Water 1,000 ML IV PRN (15:29)
[2023-09-10 20:41] LABS: ALT (SGPT) 43 U/L (8-55); AST (SGOT) 92 U/L (5-34); Albumin 3.6 g/dL (3.4-4.8); Alkaline Phosphatase 114 U/L (40-110); Anion Gap 12 mmol/L (10-20); BUN (Urea Nitrogen) 46 mg/dL (9.8-20.1); Bilirubin, Total 1.2 mg/dL (0.2-1.2); Calc. Creatinine Clearance 34 mL/min (70-130); Calcium 8.9 mg/dL (7.8-10.44); Carbon Dioxide 30 mmol/L (23-31); Chloride 100 mmol/L (98-107); Estimated GFR 37; Globulin 2.4 g/dL (2.4-3.5); Glucose 121 mg/dL (80-115); Potassium 3.3 mmol/L (3.5-5.1); Sodium 139 mmol/L (136-145)
[2023-09-11 04:58] LABS: #Monocytes 0.8 thou/uL (0.11-0.59); #Neutrophils 10.2 thou/uL (1.40-6.50); %Basophils 0.2 % (0.0-1.0); %Eosinophils 0.1 % (0.0-10.0); %Lymphocytes 9.1 % (21.0-51.0); %Monocytes 6.4 % (0.0-10.0); %Neutrophils 83.7 % (42.0-75.0); Hematocrit 27.4 % (36.0-47.0); Hemoglobin 9.3 g/dL (12.0-16.0); Mean Corpuscular HGB CONC 33.9 g/dL (32.0-36.0); Mean Corpuscular Volume 79.7 fl (78.0-98.0); Mean Platelet Volume 10.7 fL (7.4-10.4); Platelet Count 176 10x3/uL (130-400); RBC Distribution Width 13.4 % (11.5-14.5); Red Blood Cell (RBC) Count 3.44 mill/uL (4.20-5.40); White Blood Cell (WBC) Count 12.2 10x3/uL (4.8-10.8)
[2023-09-11 05:09] VITALS: BMI 24.3
[2023-09-11 05:26] LABS: ALT (SGPT) 42 U/L (8-55); AST (SGOT) 77 U/L (5-34); Albumin 2.9 g/dL (3.4-4.8); Alkaline Phosphatase 107 U/L (40-110); Anion Gap 11 mmol/L (10-20); BUN (Urea Nitrogen) 38 mg/dL (9.8-20.1); Bilirubin, Total 0.9 mg/dL (0.2-1.2); Calc. Creatinine Clearance 40 mL/min (70-130); Calcium 8.2 mg/dL (7.8-10.44); Carbon Dioxide 31 mmol/L (23-31); Chloride 102 mmol/L (98-107); Estimated GFR 45; Globulin 2.2 g/dL (2.4-3.5); Glucose 149 mg/dL (80-115); Magnesium 2.2 mg/dL (1.6-2.6); Phosphorus 2.3 mg/dL (2.3-4.7); Potassium 3.5 mmol/L (3.5-5.1); Protein, Total 5.1 g/dL (5.8-8.1); Sodium 140 mmol/L (136-145)
[2023-09-11] MEDS: Levothyroxine Sodium 100 MCG TAB PO SCH (06:20)
[2023-09-11] MEDS: Potassium Chloride 20 MEQ TAB PO SCH (08:45)
[2023-09-11] MEDS: HumaLOG 300 UNITS/3 ML VIAL SC PRN (09:08)
[2023-09-11] MEDS: Potassium Bicarbonate/Cit Ac 20 MEQ TAB PO SCH (09:45)
[2023-09-11 12:58] LABS: Vancomycin, Random 14.8 ug/mL (See Comment)
[2023-09-11] MEDS: Vancomycin 1 GM in Premix 1 BAG IVPB SCH (13:52)
[2023-09-12 04:52] LABS: #Eosinphils 0.1 thou/uL (0.0-0.7); #Monocytes 0.6 thou/uL (0.11-0.59); #Neutrophils 5.7 thou/uL (1.40-6.50); %Basophils 0.1 % (0.0-1.0); %Eosinophils 0.7 % (0.0-10.0); %Lymphocytes 11.5 % (21.0-51.0); %Monocytes 8.9 % (0.0-10.0); %Neutrophils 78.2 % (42.0-75.0); Hematocrit 29.6 % (36.0-47.0); Hemoglobin 9.5 g/dL (12.0-16.0); Mean Corpuscular HGB CONC 32.1 g/dL (32.0-36.0); Mean Corpuscular Hemoglobin 26.4 pg (27.0-31.0); Mean Platelet Volume 10.9 fL (7.4-10.4); Platelet Count 144 10x3/uL (130-400); RBC Distribution Width 13.6 % (11.5-14.5); White Blood Cell (WBC) Count 7.2 10x3/uL (4.8-10.8)
[2023-09-12 05:27] LABS: Mean Corpuscular Volume 82.2 fl (78.0-98.0)
[2023-09-12 05:28] LABS: Anion Gap 12 mmol/L (10-20); BUN (Urea Nitrogen) 24 mg/dL (9.8-20.1); Calc. Creatinine Clearance 53 mL/min (70-130); Calcium 8.6 mg/dL (7.8-10.44); Carbon Dioxide 28 mmol/L (23-31); Chloride 104 mmol/L (98-107); Estimated GFR 63; Glucose 246 mg/dL (80-115); Potassium 3.9 mmol/L (3.5-5.1); Sodium 140 mmol/L (136-145)
[2023-09-12] MEDS: Levothyroxine Sodium 125 MCG TAB PO SCH (05:37)
[2023-09-12] MEDS: Insulin Glargine 30 UNITS/0.3 ML VIAL SC SCH (08:53)
[2023-09-12] MEDS: Sodium Chloride 0.9% 1,000 ML IV SCH (17:56)
[2023-09-12] MEDS ORDERED: FLU VACC QS2023(65UP)/MF59C/PF 60 MCG/0.5 ML SYRINGE IM ONE (21:30)
[2023-09-13 06:51] LABS: #Eosinphils 0.5 thou/uL (0.0-0.7); #Monocytes 0.6 thou/uL (0.11-0.59); #Neutrophils 4.6 thou/uL (1.40-6.50); %Basophils 0.4 % (0.0-1.0); %Eosinophils 7.2 % (0.0-10.0); %Lymphocytes 14.8 % (21.0-51.0); %Monocytes 9.1 % (0.0-10.0); %Neutrophils 68.2 % (42.0-75.0); Hematocrit 30.7 % (36.0-47.0); Hemoglobin 9.7 g/dL (12.0-16.0); Mean Corpuscular HGB CONC 31.6 g/dL (32.0-36.0); Mean Corpuscular Hemoglobin 26.6 pg (27.0-31.0); Mean Corpuscular Volume 84.3 fl (78.0-98.0); Mean Platelet Volume 10.8 fL (7.4-10.4); Platelet Count 137 10x3/uL (130-400); RBC Distribution Width 13.2 % (11.5-14.5); Red Blood Cell (RBC) Count 3.64 mill/uL (4.20-5.40); White Blood Cell (WBC) Count 6.7 10x3/uL (4.8-10.8)
[2023-09-13 07:09] LABS: Anion Gap 13 mmol/L (10-20); BUN (Urea Nitrogen) 15 mg/dL (9.8-20.1); Calc. Creatinine Clearance 67 mL/min (70-130); Calcium 8.4 mg/dL (7.8-10.44); Carbon Dioxide 24 mmol/L (23-31); Chloride 104 mmol/L (98-107); Estimated GFR 84; Glucose 229 mg/dL (80-115); Potassium 3.5 mmol/L (3.5-5.1); Sodium 137 mmol/L (136-145)
[2023-09-13] MEDS: Potassium Chloride 20 MEQ TAB PO SCH (12:56)
[2023-09-13] MEDS: Carvedilol 6.25 MG TAB PO SCH (15:20)
[2023-09-13 15:21] VITALS: BP 144/79
[2023-09-13 16:34] VITALS: TEMP 97.9
[2023-09-13] MEDS ORDERED: Carvedilol 6.25 MG TAB PO SCH (21:00)
[2023-09-13] MEDS ORDERED: Oxybutynin 5 MG TAB PO SCH (21:00)
[2023-09-13] MEDS ORDERED: traZODone HCl 50 MG TAB PO SCH (21:00)
[2023-09-14] MEDS ORDERED: FLUoxetine HCl 20 MG CAP PO SCH (09:00)
[2023-09-14] MEDS ORDERED: Aspirin Chewable 81 MG TAB PO SCH (09:00)
[2023-09-14] MEDS ORDERED: Potassium Chloride 10 MEQ TAB PO SCH (09:00)
[2023-09-14] MEDS ORDERED: NIFEdipine XL 30 MG ER.TAB PO SCH (09:00)
== END 2023-09-13 15:30 | disposition home or self-care (01) | DRG 637 ==
LOC: ERS 13:32 → ERHOLD 15:57 → CCU 18:30 → T4-B 09-11 11:53
PROVIDERS: ADMIT Internal Medicine; ATTEND Internal Medicine
PROC: 0T9B70Z Drainage of Bladder with Drainage Device, Via Natural or Artificial Opening (ICD-10-PCS; principal; 2023-09-09)
PROC: 4A033R1 Measurement of Arterial Saturation, Peripheral, Percutaneous Approach (ICD-10-PCS; 2023-09-09)
PROC: 3E033XZ Introduction of Vasopressor into Peripheral Vein, Percutaneous Approach (ICD-10-PCS; 2023-09-09)
PROC: 3E03329 Introduction of Other Anti-infective into Peripheral Vein, Percutaneous Approach (ICD-10-PCS; 2023-09-11)
DX: E10.10 Type 1 diabetes mellitus with ketoacidosis without coma (principal); G92.8 Other toxic encephalopathy; I21.4 Non-ST elevation (NSTEMI) myocardial infarction; R57.1 Hypovolemic shock; E87.1 Hypo-osmolality and hyponatremia; N17.9 Acute kidney failure, unspecified; I95.9 Hypotension, unspecified; Z88.2 Allergy status to sulfonamides; Z88.8 Allergy status to other drugs, medicaments and biological substances; Z79.899 Other long term (current) drug therapy; Z79.4 Long term (current) use of insulin; E03.9 Hypothyroidism, unspecified; Z90.89 Acquired absence of other organs; Z90.710 Acquired absence of both cervix and uterus; Z98.890 Other specified postprocedural states; E86.0 Dehydration; E87.5 Hyperkalemia; Z66 Do not resuscitate; F03.90 Unspecified dementia, unspecified severity, without behavioral disturbance, psychotic disturbance, mood disturbance, and anxiety; N18.30 Chronic kidney disease, stage 3 unspecified; I12.9 Hypertensive chronic kidney disease with stage 1 through stage 4 chronic kidney disease, or unspecified chronic kidney disease; E10.22 Type 1 diabetes mellitus with diabetic chronic kidney disease
CPT/HCPCS: 36415; 36416; 36600; 51702; 71045; 80048; 80053; 80202; 81001; 82010; 82805; 83605; 83690; 83735; 83930; 84100; 84443; 84484; 85025; 85610; 85730; 93005; 93306; 96361; 96365; 96366; 96367; 96368; 96375; A4217; C9113; J0692; J1720; J1815; J1940; J3370-JW; J3480; J3490; J7050; J7070; J7999

== ENCOUNTER 2023-11-03 13:57 | Inpatient (IN) | payer MEDICARE, BC ==
[2023-11-03] MEDS ORDERED: Haloperidol Lactate 5 MG/ML VIAL ONE (14:51)
[2023-11-03 16:48] LABS: #Basophils 0.03 10x3/uL (0.0-0.2); %Basophils 0.4 % (0.0-1.0); %Eosinophils 1.9 % (0.0-10.0); %Lymphocytes 18.8 % (21.0-51.0); %Monocytes 6.4 % (0.0-10.0); %Neutrophils 72.2 % (42.0-75.0); Hemoglobin 13.7 g/dL (12.0-16.0); Mean Corpuscular HGB CONC 31.9 g/dL (32.0-36.0); Mean Corpuscular Volume 81.7 fL (78.0-98.0); Mean Platelet Volume 9.5 fL (7.4-10.4); Platelet Count 282 10x3/uL (130-400); RBC Distribution Width 13.8 % (11.5-14.5); Red Blood Cell (RBC) Count 5.26 mill/uL (4.20-5.40)
[2023-11-03 17:05] LABS: Troponin I 0.012 ng/mL (< 0.028)
[2023-11-03 17:12] LABS: Acetaminophen Less than 10 mcg/mL (10.0-30.0); Alcohol Less than 10.0 mg/dL (Less than 10); Salicylate Less than 8.0 mg/dL (15.0-30.0)
[2023-11-03 18:52] LABS: PTT 30.2 sec (22.9-36.1); Prothrombin Time 13.2 sec (12.0-14.7)
[2023-11-03 18:54] LABS: Amphetamine Not Detected (NotDetected); Barbiturates Screen Not Detected (NotDetected); Benzodiazepine Screen Not Detected (NotDetected); Cocaine Metabolite Screen Not Detected (NotDetected); Methadone Not Detected (NotDetected); Methamphetamine Not Detected (NotDetected); Opiate Screen Not Detected (NotDetected); Oxycodone Screen Not Detected (NotDetected); Phencyclidine (PCP) Not Detected (NotDetected); THC/Cannabinoid Screen Not Detected (NotDetected); Tricyclic Screen Not Detected (NotDetected)
[2023-11-03 18:59] LABS: Bilirubin Negative (Negative); Blood, Urine Negative (Negative); CAUTI Indications for Culture Pelvic or flank pain; Glucose, Urine (Dipstick) Normal (Negative); Ketone, Urine Trace mg/dL (Negative); Leukocyte 75 Leu/uL (Negative); Nitrite Negative (Negative); Protein, Urine (Dipstick) Negative (Neg-Trace); RBC/HPF 0-3 HPF (0-3); Specific Gravity, Urine 1.015 (1.002-1.036); Squamous Epithelial 0-3 HPF (0-3); Urobilinogen Normal mg/dL (Less than 2); pH, Urine 5.5 (5.0-9.0)
[2023-11-03 19:14] LABS: Bacteria/HPF 1+ HPF (None Seen); Clarity Slightly Cloudy (Clear); Yeast-Budding 2+ HPF (None Seen)
[2023-11-03 19:15] LABS: Urine Culture Reflex No No
[2023-11-03 19:51] LABS: Anion Gap 16 mmol/L (10-20); Globulin 3.8 g/dL (2.4-3.5)
[2023-11-03 19:56] LABS: ALT (SGPT) 11 U/L (8-55); AST (SGOT) 24 U/L (5-34); Albumin 4.4 g/dL (3.4-4.8); Alkaline Phosphatase 83 U/L (40-110); BUN (Urea Nitrogen) 19 mg/dL (9.8-20.1); Bilirubin, Total 0.9 mg/dL (0.2-1.2); CK (CPK) 178 U/L (29-168); Calc. Creatinine Clearance 0 mL/min (70-130); Calcium 10.5 mg/dL (7.8-10.44); Carbon Dioxide 22 mmol/L (23-31); Chloride 101 mmol/L (98-107); Estimated GFR 68; Glucose 62 mg/dL (80-115); Magnesium 2.1 mg/dL (1.6-2.6); Potassium 3.6 mmol/L (3.5-5.1); Protein, Total 8.2 g/dL (5.8-8.1); Sodium 135 mmol/L (136-145)
[2023-11-03 19:57] LABS: Lactic Acid 1.1 mmol/L (0.5-2.2)
[2023-11-03] MEDS ORDERED: Ondansetron PF 4 MG/2 ML Vial IVP PRN (23:01)
[2023-11-03] MEDS ORDERED: Ondansetron ODT 4 MG TAB PO PRN (23:01)
[2023-11-03] MEDS ORDERED: Acetaminophen 650 MG Suppository PR PRN (23:01)
[2023-11-03] MEDS ORDERED: Dextrose 50% Abboject 50 ML SYRINGE SLOW IVP PRN (23:14)
[2023-11-03] MEDS ORDERED: Dextrose 5% in Water 1,000 ML IV PRN (23:14)
[2023-11-03] MEDS ORDERED: Glucagon 1 MG/ML KIT IM PRN (23:14)
[2023-11-03 23:37] VITALS: BMI 18.9
[2023-11-04 05:43] LABS: #Basophils 0.03 10x3/uL (0.0-0.2); %Basophils 0.4 % (0.0-1.0); %Eosinophils 2.8 % (0.0-10.0); %Lymphocytes 25.1 % (21.0-51.0); %Monocytes 6.5 % (0.0-10.0); %Neutrophils 64.8 % (42.0-75.0); Hemoglobin 12.8 g/dL (12.0-16.0); Mean Corpuscular HGB CONC 32.8 g/dL (32.0-36.0); Mean Corpuscular Hemoglobin 26.5 pg (27.0-31.0); Mean Corpuscular Volume 80.7 fL (78.0-98.0); Mean Platelet Volume 9.5 fL (7.4-10.4); Platelet Count 299 10x3/uL (130-400); RBC Distribution Width 13.8 % (11.5-14.5); Red Blood Cell (RBC) Count 4.83 mill/uL (4.20-5.40)
[2023-11-04 06:00] LABS: Anion Gap 14 mmol/L (10-20); Globulin 3.7 g/dL (2.4-3.5)
[2023-11-04] MEDS: Levothyroxine Sodium 125 MCG TAB PO SCH (06:03)
[2023-11-04 06:05] LABS: ALT (SGPT) 10 U/L (8-55); AST (SGOT) 21 U/L (5-34); Alkaline Phosphatase 80 U/L (40-110); BUN (Urea Nitrogen) 20 mg/dL (9.8-20.1); Bilirubin, Total 0.8 mg/dL (0.2-1.2); Calc. Creatinine Clearance 48 mL/min (70-130); Carbon Dioxide 24 mmol/L (23-31); Chloride 99 mmol/L (98-107); Estimated GFR 67; Glucose 174 mg/dL (80-115); Potassium 3.7 mmol/L (3.5-5.1); Protein, Total 7.7 g/dL (5.8-8.1); Sodium 133 mmol/L (136-145)
[2023-11-04 08:01] LABS: T4 5.88 ug/dL (4.87-11.72)
[2023-11-04] MEDS: FLUoxetine HCl 20 MG CAP PO SCH (10:09)
[2023-11-04] MEDS: Losartan 25 MG TAB PO SCH (10:10)
[2023-11-04] MEDS: Famotidine/PF 20 mg/2ml Vial SLOW IVP SCH (10:10)
[2023-11-04] MEDS: Carvedilol 6.25 MG TAB PO SCH (10:10)
[2023-11-04 15:49] LABS: Iron 100 ug/dL (50-170); Iron Binding Capacity, Total 319 mcg/dL (265-497); Iron Binding Capacity, Total 321 mcg/dL (265-497)
[2023-11-04] MEDS: Famotidine 20 MG TAB PO SCH (18:33)
[2023-11-04 19:10] LABS: Iron 103 ug/dL (50-170)
[2023-11-04] MEDS: Insulin Glargine 30 UNITS/0.3 ML VIAL SC SCH (21:15)
[2023-11-04] MEDS: HumaLOG 300 UNITS/3 ML VIAL SC PRN ×2 (21:16→23:03)
[2023-11-04] MEDS: Sodium Chloride 0.9% 500 ML IV SCH (22:05)
[2023-11-05 06:22] LABS: Free T4 (Free Thyroxine) 0.93 ng/dL (0.70-1.48)
[2023-11-05] MEDS: Aspirin Chewable 81 MG TAB PO SCH (08:42)
[2023-11-05] MEDS: Famotidine 20 MG TAB PO SCH (08:42)
[2023-11-05] MEDS: Famotidine/PF 20 mg/2ml Vial SLOW IVP SCH (08:48)
[2023-11-05] MEDS ORDERED: QUEtiapine 25 MG TAB PO SCH (09:00)
[2023-11-05] MEDS: Acetaminophen 325 MG TAB PO PRN (21:03)
[2023-11-06 06:08] LABS: Free T4 (Free Thyroxine) 1.41 ng/dL (0.70-1.48)
[2023-11-06] MEDS: QUEtiapine 25 MG TAB PO SCH (20:44)
[2023-11-07 05:48] LABS: Free T4 (Free Thyroxine) 1.03 ng/dL (0.70-1.48)
[2023-11-07 12:14] VITALS: TEMP 98
[2023-11-07 14:49] VITALS: BP 149/90
== END 2023-11-07 16:26 | disposition home health service (06) | DRG 643 ==
LOC: ERS 13:57 → T4-A 21:32 → OBSVTOIN 11-07 08:21
PROVIDERS: ADMIT Student in an Organized Health Care Education/Training Program; ATTEND Hospitalist
DX: E03.9 Hypothyroidism, unspecified (principal); G93.41 Metabolic encephalopathy; I10 Essential (primary) hypertension; F03.90 Unspecified dementia, unspecified severity, without behavioral disturbance, psychotic disturbance, mood disturbance, and anxiety; E83.52 Hypercalcemia; Z66 Do not resuscitate; F09 Unspecified mental disorder due to known physiological condition; Z22.322 Carrier or suspected carrier of Methicillin resistant Staphylococcus aureus; Z88.2 Allergy status to sulfonamides
CPT/HCPCS: 36415; 36416; 70450; 70551; 80053; 80306; 80307; 81001; 82140; 82533; 82550; 83540; 83550; 83605; 83735; 84436; 84439; 84443; 84481; 84484; 85025; 85610; 85730; 86141; 87040; 87149; 93005; 94760; 96372; 96374; G0378; J1630; J1815; J7030; S0028

== ENCOUNTER 2024-04-30 14:27 | Inpatient (IN) | payer MEDICARE, BC ==
[2024-04-30] MEDS ORDERED: Ondansetron PF 4 MG/2 ML Vial IVP PRN (15:43)
[2024-04-30] MEDS ORDERED: Morphine 2 MG/ML VIAL SLOW IVP PRN (15:43)
[2024-04-30] MEDS ORDERED: Ipratropium/Albuterol 3 ML NEB NEB PRN (15:43)
[2024-04-30] MEDS ORDERED: Sodium Chloride 0.9% 1,000 ML IV SCH (15:45)
[2024-04-30] MEDS ORDERED: traMADol HCl 50 MG TAB PO PRN (15:45)
[2024-04-30 17:34] LABS: #Basophils 0.04 10x3/uL (0.0-0.2); %Basophils 0.4 % (0.0-1.0); %Eosinophils 1.1 % (0.0-10.0); %Lymphocytes 11.5 % (21.0-51.0); %Monocytes 6.7 % (0.0-10.0); %Neutrophils 79.9 % (42.0-75.0); Hematocrit 32.9 % (36.0-47.0); Hemoglobin 11.5 g/dL (12.0-16.0); Mean Corpuscular Hemoglobin 28.9 pg (27.0-31.0); Mean Corpuscular Volume 82.7 fL (78.0-98.0); Mean Platelet Volume 9.9 fL (7.4-10.4); Platelet Count 173 10x3/uL (130-400); RBC Distribution Width 12.3 % (11.5-14.5); Red Blood Cell (RBC) Count 3.98 mill/uL (4.20-5.40)
[2024-04-30 17:37] VITALS: BMI 21.6
[2024-04-30 17:57] LABS: Anion Gap 16 mmol/L (10-20); BUN (Urea Nitrogen) 30 mg/dL (9.8-20.1); CK (CPK) 81 U/L (29-168); Calc. Creatinine Clearance 39 mL/min (70-130); Calcium 9.1 mg/dL (7.8-10.44); Carbon Dioxide 25 mmol/L (23-31); Chloride 98 mmol/L (98-107); Estimated GFR 45; Glucose 352 mg/dL (80-115); Potassium 3.5 mmol/L (3.5-5.1); Sodium 135 mmol/L (136-145)
[2024-04-30] MEDS: Sodium Chloride 0.9% 1,000 ML IV SCH (18:17)
[2024-04-30] MEDS: Carvedilol 6.25 MG TAB PO SCH (18:17)
[2024-04-30] MEDS: traMADol HCl 50 MG TAB PO SCH (18:18)
[2024-04-30] MEDS: Docusate 100 MG CAP PO SCH (20:42)
[2024-04-30] MEDS: traZODone HCl 50 MG TAB PO SCH (20:43)
[2024-04-30] MEDS: Oxybutynin 5 MG TAB PO SCH (20:43)
[2024-05-01] MEDS: Levothyroxine Sodium 125 MCG TAB PO SCH (06:01)
[2024-05-01 06:02] LABS: #Basophils Less than 0.03 10x3/uL (0.0-0.2); %Basophils 0.3 % (0.0-1.0); %Lymphocytes 11.6 % (21.0-51.0); %Monocytes 7.8 % (0.0-10.0); %Neutrophils 76.8 % (42.0-75.0); Hematocrit 29.7 % (36.0-47.0); Hemoglobin 10.1 g/dL (12.0-16.0); Mean Corpuscular Hemoglobin 28.7 pg (27.0-31.0); Mean Corpuscular Volume 84.4 fL (78.0-98.0); Mean Platelet Volume 9.9 fL (7.4-10.4); Platelet Count 134 10x3/uL (130-400); RBC Distribution Width 12.6 % (11.5-14.5); Red Blood Cell (RBC) Count 3.52 mill/uL (4.20-5.40)
[2024-05-01 06:16] LABS: Anion Gap 13 mmol/L (10-20); BUN (Urea Nitrogen) 26 mg/dL (9.8-20.1); Calc. Creatinine Clearance 42 mL/min (70-130); Calcium 8.5 mg/dL (7.8-10.44); Carbon Dioxide 24 mmol/L (23-31); Chloride 101 mmol/L (98-107); Estimated GFR 50; Glucose 382 mg/dL (80-115); INR-International Normal Ratio 1.2; PTT 41.4 sec (22.9-36.1); Potassium 3.7 mmol/L (3.5-5.1); Prothrombin Time 15.1 sec (12.0-14.7); Sodium 134 mmol/L (136-145)
[2024-05-01 07:20] LABS: Bacteria/HPF None Seen HPF (None Seen); Bilirubin Negative (Negative); Blood, Urine Negative (Negative); CAUTI Indications for Culture Alt mental st,lethar; Clarity Clear (Clear); Glucose, Urine (Dipstick) Greater than 1000 mg/dL (Negative); Ketone, Urine 20 mg/dL (Negative); Leukocyte 250 Leu/uL (Negative); Nitrite Negative (Negative); Protein, Urine (Dipstick) Negative (Neg-Trace); RBC/HPF 0-3 HPF (0-3); Specific Gravity, Urine 1.022 (1.002-1.036); Squamous Epithelial None Seen HPF (0-3); Urobilinogen Normal mg/dL (Less than 2)
[2024-05-01 07:22] LABS: Urine Culture Reflex No No
[2024-05-01] MEDS ORDERED: PROPOFOL 20 ML ONE (07:30)
[2024-05-01] MEDS ORDERED: Insulin Regular, Human 100 UNIT/ML 10 ML VIAL ONE (08:07)
[2024-05-01] MEDS ORDERED: CEFAZOLIN 2 GM VIAL ONE (08:08)
[2024-05-01] MEDS ORDERED: Sodium Chloride 0.9% 100 ML ONE (08:08)
[2024-05-01] MEDS: Carvedilol 6.25 MG TAB PO SCH (08:27)
[2024-05-01] MEDS: FLUoxetine HCl 20 MG CAP PO SCH (08:27)
[2024-05-01] MEDS ORDERED: fentaNYL PF 100 MCG/2 ML SYRINGE ONE (08:28)
[2024-05-01] MEDS ORDERED: PHENYLEPHRINE-NS 100 MCG/ML 10 ML SYRINGE ONE (08:36)
[2024-05-01] MEDS ORDERED: diphenhydrAMINE 50 MG/ML VIAL ONE (08:52)
[2024-05-01] MEDS ORDERED: Ketorolac Tromethamine 30 MG (1 mL) VIAL ONE (08:52)
[2024-05-01] MEDS ORDERED: Ondansetron PF 4 MG/2 ML Vial ONE (08:52)
[2024-05-01] MEDS ORDERED: Rocuronium Bromide 10 MG/ML (10ML VIAL) ONE (08:52)
[2024-05-01] MEDS ORDERED: Ondansetron HCl/PF 4 MG/2 ML Vial IVP PRN (09:18)
[2024-05-01] MEDS ORDERED: Glucagon 1 MG/ML KIT IM PRN (10:45)
[2024-05-01] MEDS ORDERED: Dextrose 5% in Water 1,000 ML IV PRN (10:45)
[2024-05-01] MEDS ORDERED: Dextrose 50% Abboject 50 ML SYRINGE SLOW IVP PRN (10:45)
[2024-05-01] MEDS ORDERED: Insulin Lispro 100 UNIT/ML 10 ML VIAL SQ SCH (11:30)
[2024-05-01] MEDS: Insulin Lispro 100 UNIT/ML 10 ML VIAL SQ SCH (21:36)
[2024-05-01] MEDS: CEFAZOLIN 2 GM in Sodium Chloride 0.9% 100 ML IVPB SCH (21:40)
[2024-05-01] MEDS: QUEtiapine 25 MG TAB PO SCH (21:47)
[2024-05-02] MEDS: Insulin Lispro 100 UNIT/ML 10 ML VIAL SC PRN ×2 (05:53→16:23)
[2024-05-02] MEDS: NIFEdipine XL 30 MG ER.TAB PO SCH (09:15)
[2024-05-02] MEDS: Aspirin Chewable 81 MG TAB PO SCH (09:16)
[2024-05-02] MEDS: Potassium Chloride 10 MEQ TAB PO SCH (09:16)
[2024-05-02] MEDS: Hydrochlorothiazide 25 MG TAB PO SCH (09:16)
[2024-05-02] MEDS: Insulin Glargine 30 UNITS/0.3 ML VIAL SC SCH ×2 (09:16→21:23)
[2024-05-02] MEDS: Acetaminophen 325 MG TAB PO SCH (09:46)
[2024-05-02 11:10] LABS: #Basophils Less than 0.03 10x3/uL (0.0-0.2); %Basophils 0.3 % (0.0-1.0); %Eosinophils 3.4 % (0.0-10.0); %Lymphocytes 13.3 % (21.0-51.0); %Monocytes 5.3 % (0.0-10.0); %Neutrophils 77.3 % (42.0-75.0); Hematocrit 25.9 % (36.0-47.0); Hemoglobin 8.4 g/dL (12.0-16.0); Mean Corpuscular HGB CONC 32.4 g/dL (32.0-36.0); Mean Corpuscular Volume 89.3 fL (78.0-98.0); Mean Platelet Volume 10.7 fL (7.4-10.4); Platelet Count 140 10x3/uL (130-400); RBC Distribution Width 12.7 % (11.5-14.5)
[2024-05-02 11:26] LABS: Anion Gap 12 mmol/L (10-20); BUN (Urea Nitrogen) 30 mg/dL (9.8-20.1); Calc. Creatinine Clearance 37 mL/min (70-130); Calcium 8.6 mg/dL (7.8-10.44); Carbon Dioxide 24 mmol/L (23-31); Chloride 105 mmol/L (98-107); Estimated GFR 43; Glucose 297 mg/dL (80-115); Potassium 3.8 mmol/L (3.5-5.1); Sodium 137 mmol/L (136-145)
[2024-05-02 11:27] LABS: Magnesium 2.2 mg/dL (1.6-2.6)
[2024-05-02] MEDS: Acetaminophen/Codeine 30-300mg Tablet PO PRN (12:35)
[2024-05-02] MEDS ORDERED: Insulin Lispro 100 UNIT/ML 10 ML VIAL SC PRN (13:46)
[2024-05-02] MEDS: Carvedilol 6.25 MG TAB PO SCH (16:23)
[2024-05-02] MEDS ORDERED: Insulin Glargine 30 UNITS/0.3 ML VIAL SC SCH (21:00)
[2024-05-02] MEDS ORDERED: Cholecalciferol 1,000 UNITS (25 MCG) TAB PO SCH (21:00)
[2024-05-02] MEDS: Cyanocobalamin (Vitamin B-12) 1,000 MCG TAB PO SCH (21:26)
[2024-05-02] MEDS: Multivit, Therapeutic 1 TAB PO SCH (21:27)
[2024-05-02] MEDS: Folic Acid 1 MG TAB PO SCH (21:27)
[2024-05-02] MEDS: Heparin 5,000 UNITS/ML VIAL SC SCH (21:36)
[2024-05-03 06:10] LABS: #Basophils 0.03 10x3/uL (0.0-0.2); %Basophils 0.4 % (0.0-1.0); %Eosinophils 4.9 % (0.0-10.0); %Lymphocytes 25.4 % (21.0-51.0); %Monocytes 8.4 % (0.0-10.0); %Neutrophils 60.5 % (42.0-75.0); Hematocrit 23.7 % (36.0-47.0); Hemoglobin 7.6 g/dL (12.0-16.0); Mean Corpuscular HGB CONC 32.1 g/dL (32.0-36.0); Mean Corpuscular Hemoglobin 28.6 pg (27.0-31.0); Mean Corpuscular Volume 89.1 fL (78.0-98.0); Mean Platelet Volume 10.4 fL (7.4-10.4); Platelet Count 128 10x3/uL (130-400); RBC Distribution Width 12.6 % (11.5-14.5); Red Blood Cell (RBC) Count 2.66 mill/uL (4.20-5.40)
[2024-05-03] MEDS ORDERED: hydrALAZINE 25 MG TAB PO PRN (08:24)
[2024-05-03] MEDS: Cholecalciferol 1,000 UNITS (25 MCG) TAB PO SCH (09:29)
[2024-05-03] MEDS ORDERED: Insulin Lispro 100 UNIT/ML 10 ML VIAL SC PRN (11:14)
[2024-05-03] MEDS: Ferrous Sulfate 325 MG TAB PO SCH (18:10)
[2024-05-03] MEDS: Carvedilol 3.125 MG TAB PO SCH (18:10)
[2024-05-03] MEDS: Ascorbic Acid 500 mg Chewable Tablet PO SCH (21:07)
[2024-05-03] MEDS: Insulin Glargine 30 UNITS/0.3 ML VIAL SC SCH (21:07)
[2024-05-04 12:17] LABS: #Basophils Less than 0.03 10x3/uL (0.0-0.2); %Basophils 0.3 % (0.0-1.0); %Eosinophils 4.5 % (0.0-10.0); %Lymphocytes 19.1 % (21.0-51.0); %Monocytes 9.1 % (0.0-10.0); %Neutrophils 66.7 % (42.0-75.0); Hematocrit 23.7 % (36.0-47.0); Hemoglobin 7.6 g/dL (12.0-16.0); Mean Corpuscular HGB CONC 32.1 g/dL (32.0-36.0); Mean Corpuscular Hemoglobin 28.9 pg (27.0-31.0); Mean Corpuscular Volume 90.1 fL (78.0-98.0); Mean Platelet Volume 10.3 fL (7.4-10.4); Platelet Count 157 10x3/uL (130-400); RBC Distribution Width 12.9 % (11.5-14.5); Red Blood Cell (RBC) Count 2.63 mill/uL (4.20-5.40)
[2024-05-04 12:33] LABS: Anion Gap 11 mmol/L (10-20); BUN (Urea Nitrogen) 22 mg/dL (9.8-20.1); Calc. Creatinine Clearance 61 mL/min (70-130); Calcium 8.5 mg/dL (7.8-10.44); Carbon Dioxide 29 mmol/L (23-31); Chloride 102 mmol/L (98-107); Estimated GFR 77; Glucose 74 mg/dL (80-115); Potassium 4.1 mmol/L (3.5-5.1); Sodium 138 mmol/L (136-145)
[2024-05-04] MEDS: Carvedilol 6.25 MG TAB PO SCH (15:31)
[2024-05-04 15:52] VITALS: BP 152/76; TEMP 98.2
[2024-05-04] MEDS ORDERED: Senokot S 8.6-50 MG TAB PO SCH (21:00)
[2024-05-05] MEDS ORDERED: Insulin Glargine 30 UNITS/0.3 ML VIAL SC SCH (09:00)
== END 2024-05-04 18:12 | DRG 481 ==
LOC: SURG A 15:02
PROVIDERS: ADMIT Surgery; ATTEND Surgery
PROC: 0QSC04Z Reposition Left Lower Femur with Internal Fixation Device, Open Approach (ICD-10-PCS; principal; 2024-05-01)
DX: S72.402A Unspecified fracture of lower end of left femur, initial encounter for closed fracture (principal); E87.1 Hypo-osmolality and hyponatremia; E03.9 Hypothyroidism, unspecified; E11.22 Type 2 diabetes mellitus with diabetic chronic kidney disease; I12.9 Hypertensive chronic kidney disease with stage 1 through stage 4 chronic kidney disease, or unspecified chronic kidney disease; N18.30 Chronic kidney disease, stage 3 unspecified; F03.B0 Unspecified dementia, moderate, without behavioral disturbance, psychotic disturbance, mood disturbance, and anxiety; W19.XXXA Unspecified fall, initial encounter; Z79.890 Hormone replacement therapy; Z79.82 Long term (current) use of aspirin; Z79.899 Other long term (current) drug therapy; Z88.8 Allergy status to other drugs, medicaments and biological substances; Z88.2 Allergy status to sulfonamides; Z79.4 Long term (current) use of insulin; Y93.89 Activity, other specified; Y92.098 Other place in other non-institutional residence as the place of occurrence of the external cause
CPT/HCPCS: 36415; 36416; 71045; 80048; 81001; 83735; 83880; 85025; 85610; 85730; 93005; 93010; C1713; J1200; J1644; J1815; J1885; J2405; J2704; J7030